=== PATIENT | male | born 1980 | race Caucasian/White ===

== ENCOUNTER 2022-09-08 10:22 | Inpatient (IN) | payer BC, OTHER ==
[2022-09-08] MEDS ORDERED: HYDROmorphone 1 MG/ML CARPUJECT IVP STA ×6 (10:50→16:38)
[2022-09-08] MEDS ORDERED: ONDANSETRON 4 MG/2 ML VIAL IVP STA (10:50)
[2022-09-08] MEDS ORDERED: KETOROLAC 30 MG/ML VIAL IVP STA (11:14)
[2022-09-08] MEDS ORDERED: iohexoL-300 100 ML VIAL ONE (11:19)
[2022-09-08 13:09] LABS: GLUCOSE, URINE (UA) 500 mg/dL (NEGATIVE); KETONES,URINE (UA) >=80 mg/dL (NEGATIVE); LEUKOCYTE ESTERASE, URINE NEGATIVE (NEGATIVE); NITRITE,URINE NEGATIVE (NEGATIVE); OCCULT BLOOD,URINE TRACE-INTA (NEGATIVE); PROTEIN,URINE 30 mg/dL (NEGATIVE); UROBILINOGEN,URINE 1 (NORMAL) E.U./dL (NORMAL)
[2022-09-08 13:24] LABS: CLARITY,URINE CLEAR (CLEAR)
[2022-09-08 13:25] LABS: BILIRUBIN,URINE NEGATIVE (NEGATIVE); ICTOTEST,URINE NEGATIVE
[2022-09-08 13:26] LABS: BACTERIA,URINE None Seen /HPF (None Seen); RBC,URINE 0-5 /HPF (0-5); SQUAMOUS EPITHELIAL CELL,UR NONE SEEN (<= Few); WBC,URINE 0-3 /HPF (0-3)
[2022-09-08] MEDS ORDERED: SODIUM CHLORIDE 0.9% 1,000 ML IV STA (14:13)
--- NOTE | 2022-09-08 14:13 | ED Physician Documentation ---
PD HPI ABD PAIN - Stated complaint Stated Complaint: ABD PX - Chief complaint Chief Complaint: Abd Pain - History obtained from History obtained from: Patient - History of Present Illness Timing - onset: Yesterday Timing - duration: Days (2) Timing - details: Gradual onset, Still present Pain level max: >10 Pain level now: >10 Quality: Cramping, Sharp, Pain Location: Suprapubic Radiation: No: Chest, , Lower back, Left flank, Left shoulder, Right flank, Right shoulder, Upper back Improved by: Laying still Worsened by: Moving, Breathing, Position, Palpation Associated symptoms: No: Fever, Nausea, Vomiting, Hematemesis, Diarrhea, Constipation, Melena, Hematochezia, Dysuria, Hematuria, Chest pain, Dizzy, Near syncope / syncope, Loss of appetite, Weight loss, Testicular pain Similar symptoms before: Has not had sx before Recently seen: Not recently seen - Additional information Additional information: Previously well 41 y/o Prudencio Centeno developed some abdominal pain yesterday and this was not accompanied by vomiting diarrhea constipation or loss of appetite. He indicates that yesterday he was able to eat. His pain worsened this morning significantly and he sought his way to the emergency department. He has pain worse with any movement and even with deep breathing. He has severe pain. He had fever yesterday does not have fever today. He does not have other symptoms. Review of Systems Constitutional: reports: Fever Eyes: denies: Decreased vision Ears: denies: Ear pain Nose: denies: Rhinorrhea / runny nose, Congestion Throat: denies: Sore throat Cardiac: denies: Chest pain / pressure, Palpitations Respiratory: denies: Dyspnea, Cough GI: reports: Abdominal Pain. denies: Nausea, Vomiting, Constipation, Diarrhea : denies: Dysuria, Frequency, Incontinent Skin: denies: Rash Musculoskeletal: denies: Neck pain, Back pain, Extremity pain PD PAST MEDICAL HISTORY - Present Medications Home Medications: Ambulatory Orders Medication Instructions Recorded Confirmed No Known Home Medications 09/08/22 09/08/22 - Allergies Allergies/Adverse Reactions: Allergies Allergy/AdvReac Type Severity Reaction Status Date / Time No Known Drug Allergies Allergy Verified 09/08/22 10:27 PD ED PE NORMAL - Vitals Vital signs reviewed: Yes - General General: Alert and oriented X 3, Well developed/nourished, Other (41 y/o male moaning in pain worsening with slight movement ) - HEENT HEENT: Atraumatic, PERRL, EOMI - Neck Neck: Supple, no meningeal sign, No bony TTP - Cardiac Cardiac: RRR, No murmur - Respiratory Respiratory: No respiratory distress, Clear bilaterally - Abdomen Abdomen: Other (lower abdomen is firm and tender. The upper abdomen is soft. There is not a full bladder on POCUS. ) - Back Back: No CVA TTP, No spinal TTP - Derm Derm: Normal color, Warm and dry, No rash - Extremities Extremities: No deformity, No edema - Neuro Neuro: Alert and oriented X 3, dog bather 2-12 intact, No motor deficit, No sensory deficit, Normal speech Eye Opening: Spontaneous Motor: Obeys Commands Verbal: Oriented GCS Score: 15 - Psych Psych: Other (mood is painful affect is painful) Results - Vitals Vitals: Vital Signs - 24 hr 09/08/22 09/08/22 09/08/22 10:28 12:12 12:30 Temperature 37.2 C Heart Rate 120 H 63 64 Respiratory 18 17 46 H Rate Blood Pressure 149/89 H 135/64 H 144/78 H O2 Saturation 99 100 100 09/08/22 09/08/22 09/08/22 13:00 13:30 13:48 Temperature Heart Rate 112 H 114 H 110 H Respiratory 17 17 18 Rate Blood Pressure 144/85 H 146/90 H 146/90 H O2 Saturation 99 98 99 09/08/22 09/08/22 09/08/22 14:07 14:30 15:00 Temperature Heart Rate 112 H 114 H 101 H Respiratory 18 17 16 Rate Blood Pressure 147/90 H 166/98 H 145/68 H O2 Saturation 97 100 100 09/08/22 09/08/22 09/08/22 15:59 16:06 16:56 Temperature Heart Rate 125 H 123 H 129 H Respiratory 20 21 20 Rate Blood Pressure 153/105 H 162/103 H 140/93 H O2 Saturation 96 99 97 Oxygen O2 Source Room air - Labs Labs: Laboratory Tests 09/08/22 09/08/22 09/08/22 12:50 14:22 14:22 WBC 7.1 RBC 4.66 L Hgb 13.9 L Hct 41.5 L MCV 89.1 MCH 29.8 MCHC 33.5 RDW 12.4 Plt Count 278 MPV 9.9 Neut # (Auto) Not Reportable Lymph # (Auto) Not Reportable [place] # (Auto) Not Reportable Eos # (Auto) Not Reportable Baso # (Auto) Not Reportable Absolute Nucleated RBC Not Reportable Total Counted 100 Band Neuts % (Manual) 25 H Abnorm Lymph % (Manual) 0 Nucleated RBC % Not Reportable Neutrophils # (Manual) 6.4 Lymphocytes # (Manual) 0.4 L Monocytes # (Manual) 0.3 Eosinophils # (Manual) 0.0 Basophils # (Manual) 0.0 Differential Comment MANUAL DIFFERENTIAL Platelet Estimate NORMAL (130-450,000) Platelet Morphology NORMAL APPEARANCE RBC Morph Micro Appear NORMAL APPEARANCE Sodium 132 L Potassium 3.8 Chloride 96 L Carbon Dioxide 25 Anion Gap 11.0 BUN 19 Creatinine 0.8 Estimated GFR (MDRD) 107 Glucose 169 H Lactic Acid Calcium 9.1 Total Bilirubin 1.5 H AST 30 ALT 49 Alkaline Phosphatase 82 Troponin I High Sens Total Protein 7.4 Albumin 3.7 Globulin 3.7 Albumin/Globulin Ratio 1.0 Lipase 24 Urine Color YELLOW Urine Clarity CLEAR Urine pH 6.0 Ur Specific [place] >=1.030 H Urine Protein 30 H Urine Glucose (UA) 500 H Urine Ketones >=80 H Urine Occult Blood TRACE-INTA Urine Nitrite NEGATIVE Urine Bilirubin NEGATIVE Urine Urobilinogen 1 (NORMAL) Ur Leukocyte Esterase NEGATIVE Urine RBC 0-5 Urine WBC 0-3 Ur Squamous Epith Cells NONE SEEN Urine Bacteria None Seen Ur Microscopic Review INDICATED Urine Culture Comments NOT INDICATED 09/08/22 09/08/22 14:35 16:22 WBC RBC Hgb Hct MCV MCH MCHC RDW Plt Count MPV Neut # (Auto) Lymph # (Auto) [place] # (Auto) Eos # (Auto) Baso # (Auto) Absolute Nucleated RBC Total Counted Band Neuts % (Manual) Abnorm Lymph % (Manual) Nucleated RBC % Neutrophils # (Manual) Lymphocytes # (Manual) Monocytes # (Manual) Eosinophils # (Manual) Basophils # (Manual) Differential Comment Platelet Estimate Platelet Morphology RBC Morph Micro Appear Sodium Potassium Chloride Carbon Dioxide Anion Gap BUN Creatinine Estimated GFR (MDRD) Glucose Lactic Acid 2.2 Calcium Total Bilirubin AST ALT Alkaline Phosphatase Troponin I High Sens 5.0 Total Protein Albumin Globulin Albumin/Globulin Ratio Lipase Urine Color Urine Clarity Urine pH Ur Specific [place] Urine Protein Urine Glucose (UA) Urine Ketones Urine Occult Blood Urine Nitrite Urine Bilirubin Urine Urobilinogen Ur Leukocyte Esterase Urine RBC Urine WBC Ur Squamous Epith Cells Urine Bacteria Ur Microscopic Review Urine Culture Comments Procedures - Bedside sono Bedside sono by EMP: With use of POCUS both left and right kidneys are examined they are sonographically nontender and without evidence of hydronephrosis. The suprapubic area is examined without evidence of a full bladder. The area is tender PD MEDICAL DECISION MAKING - ED course Complexity details: reviewed results, re-evaluated patient, considered differential, d/w patient ED course: Previously well 41-year-old male presents to the emergency department with severe pain in the suprapubic area and his pain progresses while he is here in the emergency department and he develops a rigid abdomen. We attempted IV access on initial presentation and were able to provide some pain medication to the patient through a foot vein. After more than 7 tries by our nurses we consulted our anesthesiologist Jamila Mccoy who was kind enough to come in and place an IV. We were able to obtain blood. On initial presentation the patient acted like he might have a full bladder any slight movement was was irritating in any suprapubic palpation was irritating. This did not show up on POCUS. The patient had severe pain and was writhing and had tenderness. He appears to have a surgical abdomen. Over the period of the emergency department visit we had trouble establishing IV access and the CT scanning was delayed. Over this period of time the patient developed increasing pain required multiple doses of pain medication intravenously and his abdomen became more rigid. The patient has returned from CAT scan he has evidence of perforated diverticula on his CT scan. Free air and stool perforated. Our surgeon Dr. Vides promptly presented to the ED and made arrangements to take the patient to the operating room. He was administered IV rocephin and flagyl prior to surgery. - Critical Care Time(min): 40 Comments: urgently called into room on initial evaluation for severe pain. Patient required frequent re-evaluation and multiple doses of narcotic analgesic. POCUS required for initiall evaluation for retroperitoneal ultrasound and bladder ultrasound. Required more than 5mg of dilaudid during ED stay. Required consultation of anesthesia for line placement. Time Includes: Direct patient care, Review records, Reassess patient, Document care, Coordinate care Data interpretation: Labs Departure - Departure Disposition: [facility] DC/Xfer Clinical Impression: Perforated abdominal viscus Discharge Date/Time: 09/08/22 17:29
[2022-09-08 14:45] LABS: BASOPHILS % (AUTO) 0.3 %; EOSINOPHILS % (AUTO) 44.1 %; HCT - HEMATOCRIT 41.5 % (42.0-52.0); HGB - HEMOGLOBIN 13.9 g/dL (14.0-18.0); LYMPHOCYTES % (AUTO) 5.7 %; MEAN CORPUSCULAR HEMOGLOBIN 29.8 pg (27.0-31.0); MEAN CORPUSCULAR HGB CONC 33.5 g/dL (32.0-36.0); MEAN CORPUSCULAR VOLUME 89.1 fL (80.0-94.0); MEAN PLATELET VOLUME 9.9 fL (7.4-11.4); MONOCYTES % (AUTO) 9.5 %; NEUTROPHILS % (AUTO) 39.6 %; PLT - PLATELET COUNT 278 10^3/uL (130-450); RED BLOOD COUNT 4.66 10^6/uL (4.70-6.10); RED CELL DISTRIBUTION WIDTH 12.4 % (12.0-15.0); WHITE BLOOD COUNT 7.1 x10^3/uL (4.8-10.8)
[2022-09-08 14:49] LABS: ABNORMAL LYMPHS % (MANUAL) 0 %
[2022-09-08 14:56] LABS: ALBUMIN 3.7 g/dL (3.2-5.5); BILIRUBIN,TOTAL 1.5 mg/dL (0.2-1.0); CALCIUM 9.1 mg/dL (8.5-10.3); CREATININE 0.8 mg/dL (0.6-1.2); POTASSIUM 3.8 mmol/L (3.5-5.0); TOTAL PROTEIN 7.4 g/dL (6.7-8.2)
[2022-09-08 15:28] LABS: BAND NEUTROPHILS % (MANUAL) 25 %; LYMPHOCYTES # (MANUAL) 0.4 10^3/uL (1.5-3.5); LYMPHOCYTES % (MANUAL) 6 %; MONOCYTES # (MANUAL) 0.3 10^3/uL (0.0-1.0); NEUTROPHILS # (MANUAL) 6.4 10^3/uL (1.5-6.6)
[2022-09-08 15:31] LABS: DIFFERENTIAL COMMENT MANUAL DIFFERENTIAL; PLATELET ESTIMATE, MANUAL NORMAL (130-450,000) (NORMAL); PLATELET MORPHOLOGY NORMAL APPEARANCE (NORMAL); RBC MORPHOLOGY (MULTIPLE) NORMAL APPEARANCE (NORMAL)
--- NOTE | 2022-09-08 15:38 | CT Report ---
PROCEDURE: ABDOMEN/PELVIS W INDICATIONS: severe suprapubic pain CONTRAST: 100ml omni 300 TECHNIQUE: After the administration of IV contrast, 5 mm thick sections acquired from the diaphragms to the symp hysis. 5 mm thick coronal and sagittal reformats were acquired. For radiation dose reduction, the f ollowing was used: automated exposure control, adjustment of mA and/or kV according to patient size. COMPARISON: None. FINDINGS: Image quality: Excellent. ABDOMEN: Lung bases: Mild dependent bibasilar airspace opacity is present. Heart size is normal. Solid organs: Liver and spleen are normal in size and enhancement. Gallbladder is within normal modi its Biliary system is non dilated. Pancreas enhances normally. No adrenal nodules. Kidneys demons trate normal size and enhancement, without hydronephrosis. Peritoneum and bowel: Stomach and small bowel are within normal limits. Appendix is normal. Colon is nondistended. There is diverticulosis of the descending and sigmoid colon. Moderate thickening of the proximal and mid sigmoid colon which demonstrates mild surrounding fat stranding. There is moderate ill-defined loculated pneumoperitoneum and extracolonic stool surrounding this thickened segment of c olon, spanning roughly 60 mm transverse by 7 mm anteroposterior by 100 mm craniocaudal. Small amount of ascites predominantly within the right hemiabdomen. There is moderate retroperitoneal free air. Sm all amount of scattered likely free air within the peritoneal cavity. Nodes and vessels: No retroperitoneal or mesenteric adenopathy by size criteria. Aorta and inferior vena cava are normal in size. Miscellaneous: No ventral hernias. PELVIS: Genitourinary: Bladder wall thickness is normal. Miscellaneous: No inguinal hernias or adenopathy. Bones: No suspicious bony lesions. No vertebral body compression fractures. IMPRESSION: 1. Perforated colonic diverticulitis with resultant extracolonic pneumoperitoneum and stool as descri bed above. Retroperitoneal gas as well as a small amount of loculated free pneumoperitoneum is presen t. There is a small amount of ascites. 2. Bibasilar atelectasis versus pneumonia. 3. Findings discussed with the patient's clinician on 07/09/2022 at 1535 hours EST. Reviewed by: Panchito Karimi MD on 09/08/2022 2:36 PM AKST Approved by: Panchito Karimi MD on 09/08/2022 2:36 PM [place] Station ID: [id number]
[2022-09-08] MEDS ORDERED: metroNIDAZOLE 500 MG/100 ML 500 MG/100 ML BAG IV ONE (15:42)
[2022-09-08] MEDS ORDERED: cefTRIAXone 1 GM VIAL IVP STA (15:42)
--- NOTE | 2022-09-08 16:19 | HISTORY & PHYSICAL EXAMINATION ---
Chief Complaint - Chief Complaint Chief Complaint: Severe abdominal pain History of Present Illness - Admitted From Admitted From:: ED - History Obtained From Records Reviewed: Yes History obtained from: Patient Exam Limitations: None - History of Present Illness HPI Comment/Other: 41 year old male with sudden onset of bilateral lower abdominal pain this morning described as sharp, non-radiating, constant, and worsened by movement. Anorexic today. Denies fevers or chills. Came to ED earlier today and while here the pain worsened and a CT was performed that identified perforated sigmoid diverticulitis with extracolonic stool and air. The patient had an episode of mild abdominal pain yesterday but was able to eat and was otherwise normal. He denies prior episodes of abdominal pain prior to yesterday. He has only had liquids today. He had a normal BM yesterday but non today. 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 - Substance History Use: Uses substance without health or social issues: Tobacco, Cannabis Tobacco Details: Cigarettes Meds/Allgy - Home Medications Home Medications: Ambulatory Orders Medication Instructions Recorded Confirmed No Known Home Medications 09/08/22 09/08/22 - Allergies Allergies/Adverse Reactions: Allergies Allergy/AdvReac Type Severity Reaction Status Date / Time No Known Drug Allergies Allergy Verified 09/08/22 10:27 Review of Systems - Gastrointestinal Gastrointestinal: reports: Abdominal pain, Abdominal distention Exam - Vital Signs Reviewed Vital Signs: Yes Vital Signs: Vital Signs x48h Temp Pulse Resp BP Pulse Ox 09/08/22 16:06 123 H 21 162/103 H 99 09/08/22 15:59 125 H 20 153/105 H 96 09/08/22 15:00 101 H 16 145/68 H 100 09/08/22 14:30 114 H 17 166/98 H 100 09/08/22 14:07 112 H 18 147/90 H 97 09/08/22 13:48 110 H 18 146/90 H 99 09/08/22 13:30 114 H 17 146/90 H 98 09/08/22 13:00 112 H 17 144/85 H 99 09/08/22 12:30 64 46 H 144/78 H 100 09/08/22 12:12 63 17 135/64 H 100 09/08/22 10:28 98.9 F 120 H 18 149/89 H 99 - Physical Exam General Appearance: positive: Severe distress, Anxious Eyes Bilateral: positive: Normal inspection, PERRL, EOMI ENT: positive: ENT inspection nml, Pharynx nml Neck: positive: Nml inspection, Thyroid nml, No JVD Respiratory: positive: Chest non-tender, No respiratory distress, Breath sounds nml Cardiovascular: positive: No murmur, Tachycardia Peripheral Pulses: positive: 2+ Abdomen: positive: Guarding, Rebound, Other (Distension; Absentt bowel sounds; Tender hypogastric region with peritoneal signs) Back: positive: Nml inspection Skin: positive: Dry Extremities: positive: Non-tender, Full ROM Neurologic/Psychiatric: positive: Oriented x3 Sepsis Event Note (H) - Evaluation Current Stage of Sepsis: Sepsis Possible source of Sepsis: positive: GI tract/intra-abdominal - Sepsis Criteria Sepsis Criteria: Recorded Heart Rate greater than 90 bpm, Recorded Respiratory Rate greater than 20, WBC count greater than 12,000 or less than 4000 Conclusion/Plan - Problem List (1) Perforated abdominal viscus Conclusion/Plan: Images: CT -> extracolonic stool adjacent to an inflamed sigmoid colon with free fluid and free air in the abdomen Assessment: 1) Perforated sigmoid diverticulitis with fecal peritonitis 2) SIRS and early sepsis due to #1 Plan: 1) IV fluids, Ceftriaxone, Flagyl in ED; Heparin SQ/SCD's in OR; Hernandez in OR 2) Urgent transfer to OR for exploratory laparotomy, sigmoid colectomy, colostomy with abdominal washout. An ICU bed is on-hold for this patient's post-op care. The OR team and anesthesia provider are preparing the room for this emergency procedure Consent: Mr. Centeno has been counseled for the procedure, it's indications, risks, benefits and expected outcome as well as alternative therapies. We specifically discussed risks associated with anesthesia, bleeding, infection, injury to surrounding structures which may require additional surgery, and the possibility of leaving the abdomen open with delayed primary closure if damage control protocol is required. We also discussed the possible need for a blood transfusion with its risks and benefits. In my medical opinion, considering (1) the potential harm to the patient's health and well-being, including the risks associated with the patient under going a procedure and delaying the procedure during the COVID-19 pandemic, and (2) the health care resources available to the patient in the hospital and the broader community during and after the procedure, I recommend that the patient proceed with the procedure. Mr Centeno understands, agrees, and consents to the proposed operative strategy and requests that we proceed with the procedure as outlined in our discussion. Denzel Tse MD General Surgery Service - Lab Results Fish Bones: 09/08/22 14:22 09/08/22 14:22
[2022-09-08] MEDS ORDERED: fentaNYL 100 MCG/2 ML VIAL ONE (16:38)
[2022-09-08] MEDS ORDERED: PROPOFOL 200 MG/20 ML VIAL IVP ONE (16:39)
[2022-09-08] MEDS ORDERED: ROCURONIUM 50 MG/5 ML VIAL ONE (16:39)
[2022-09-08] MEDS ORDERED: MORPHINE 2 MG/ML CARPUJECT IVP PRN (16:45)
[2022-09-08] MEDS ORDERED: HYDROmorphone 0.5 MG/0.5 ML SYRINGE IVP PRN (16:45)
[2022-09-08] MEDS ORDERED: ONDANSETRON 4 MG/2 ML VIAL IVP PRN ×2 (16:45→19:29)
[2022-09-08] MEDS ORDERED: ATROPINE ABBOJECT 1 MG/10 ML SYRINGE IVP PRN (16:45)
[2022-09-08] MEDS ORDERED: fentaNYL 100 MCG/2 ML VIAL IVP PRN (16:45)
[2022-09-08] MEDS ORDERED: NALOXONE 0.4 MG/ML VIAL IVP PRN (16:45)
[2022-09-08] MEDS ORDERED: ePHEDrine 50 MG/ML VIAL IVP PRN (16:45)
[2022-09-08] MEDS ORDERED: METOCLOPRAMIDE 10 MG/2 ML VIAL IVP PRN (16:45)
--- NOTE | 2022-09-08 16:50 | ANESTHESIA ---
Pre-Anesthesia VS, & Labs - Diagnosis abdominal pain, perforated diverticulitis - Procedure exploratory laparotomy, colectomy, colostomy Vital Signs: Temp Pulse Resp BP Pulse Ox O2 Flow Rate 37.2 C 123 H 21 162/103 H 99 09/08/22 10:28 09/08/22 16:06 09/08/22 16:06 09/08/22 16:06 09/08/22 16:06 Height: 6 ft 1 in Weight (kg): 83.915 kg Body Mass Index: 24.4 BMI Classification: Normal - NPO >8 hours - Lab Results Current Lab Results: Laboratory Tests 09/08/22 14:35: Lactic Acid 2.2 09/08/22 14:22: Sodium 132 L, Potassium 3.8, Chloride 96 L, Carbon Dioxide 25, Anion Gap 11.0, BUN 19, Creatinine 0.8, Estimated GFR (MDRD) 107, Glucose 169 H, Calcium 9.1, Total Bilirubin 1.5 H, AST 30, ALT 49, Alkaline Phosphatase 82, Total Protein 7.4, Albumin 3.7, Globulin 3.7, Albumin/Globulin Ratio 1.0, Lipase 24 09/08/22 14:22: WBC 7.1, RBC 4.66 L, Hgb 13.9 L, Hct 41.5 L, MCV 89.1, MCH 29.8, MCHC 33.5, RDW 12.4, Plt Count 278, MPV 9.9, Neut # (Auto) Not Reportable, Lymph # (Auto) Not Reportable, [place] # (Auto) Not Reportable, Eos # (Auto) Not Reportable, Baso # (Auto) Not Reportable, Absolute Nucleated RBC Not Reportable, Total Counted 100, Band Neuts % (Manual) 25 H, Abnorm Lymph % (Manual) 0, Nucleated RBC % Not Reportable, Neutrophils # (Manual) 6.4, Lymphocytes # (Manual) 0.4 L, Monocytes # (Manual) 0.3, Eosinophils # (Manual) 0.0, Basophils # (Manual) 0.0, Differential Comment MANUAL DIFFERENTIAL, Platelet Estimate NORMAL (130-450,000), Platelet Morphology NORMAL APPEARANCE, RBC Morph Micro Appear NORMAL APPEARANCE Fish Bones: 09/08/22 14:22 09/08/22 14:22 Home Medications and Allergies Home Medications: Ambulatory Orders No Known Home Medications 09/08/22 Active Medications Atropine Sulfate (Atropine Abboject 1 Mg/10 Ml Syringe) 0.5 mg IVP Q5M PRN PRN Reason: Bradycardia Stop: 09/09/22 16:46 Ephedrine Sulfate (Ephedrine 50 Mg/Ml Vial) 10 mg IVP Q5M PRN PRN Reason: HYPOTENSION Stop: 09/09/22 16:46 Fentanyl (Fentanyl 100 Mcg/2 Ml Vial) 25 - 50 mcg IVP Q5M PRN PRN Reason: BREAKTHROUGH PAIN (2nd Choice) Stop: 09/09/22 16:46 Heparin Sodium (Porcine) (Heparin 5,000 Unit/Ml Vial) 5,000 unit SUBQ BID CHARLIE Hydromorphone HCl (Hydromorphone 0.5 Mg/0.5 Ml Syringe) 0.2 - 0.6 mg IVP Q5M PRN PRN Reason: PAIN (First Choice) Stop: 09/09/22 16:46 Lactated Ringer's (Lr) 1,000 mls @ 200 mls/hr IV .Q5H CHARLIE Lactated Ringer's (Lr) 1,000 mls @ 100 mls/hr IV .Q10H CHARLIE Stop: 09/09/22 02:59 Metoclopramide HCl (Metoclopramide 10 Mg/2 Ml Vial) 10 mg IVP Q6HR PRN PRN Reason: N/V not relieved by Zofran Morphine Sulfate (Morphine 2 Mg/Ml Carpuject) 2 - 4 mg IVP Q5M PRN PRN Reason: PAIN (3rd Choice) Stop: 09/09/22 16:46 Naloxone HCl (Naloxone 0.4 Mg/Ml Vial) 0.1 mg IVP Q2M PRN PRN Reason: RESP RATE <8 Stop: 09/09/22 16:46 Ondansetron HCl (Ondansetron 4 Mg/2 Ml Vial) 4 mg IVP ONCE PRN PRN Reason: N/V (First Choice) Stop: 09/09/22 16:46 Sodium Chloride (Sodium Chloride Flush 0.9% 10 Ml Syringe) 10 ml IVP 0100,0900,1700 CHARLIE Sodium Chloride (Sodium Chloride Flush 0.9% 10 Ml Syringe) 10 ml IVP PRN PRN PRN Reason: NEEDED PER PROVIDER ORDERS No Known Home Medications 09/08/22 Allergies/Adverse Reactions: Allergies Allergy/AdvReac Type Severity Reaction Status Date / Time No Known Drug Allergies Allergy Verified 09/08/22 10:27 Anes History & Medical History - Anesthetic History Anesthesia Complications: reports: No previous complications - Medical History Cardiovascular: reports: None Pulmonary: reports: None Smoking Status: Current every day smoker History of Cancer?: No - Surgical History Eyes Ears Nose Throat (EENT): reports: Tonsil/Adenoidectomy Exam General: Alert, Oriented x3, Severe distress (pain) Dental: WNL, Poor dentition (missing front) Mouth Opening: Greater than 4 Fingerbreadths Mallampati classification: II Thyromental Distance: greater than 6 cm Respiratory: Lungs clear Cardiovascular: Regular rate Plan Anesthesia Type: General, Transverse Abdominis Plane (TAP) Block Consent for Procedure(s) Verified and Reviewed: Yes Code Status: Attempt Resuscitation ASA classification: 2-Mild systemic disease Is this case an emergency?: Yes
[2022-09-08] MEDS ORDERED: BUPIVACAINE 0.5% PF 30 ML VIAL ONE (16:53)
[2022-09-08] MEDS ORDERED: LIDOCAINE MPF 2%-EPI 1:200000 20 ML VIAL ONE (16:53)
[2022-09-08] MEDS ORDERED: LACTATED RINGERS 1,000 ML IV SCH ×2 (17:00)
[2022-09-08] MEDS ORDERED: MIDAZOLAM 2 MG/2 ML VIAL ONE (17:03)
[2022-09-08] MEDS ORDERED: iohexoL-300 100 ML VIAL IVP ONE (17:14)
[2022-09-08] MEDS ORDERED: KETAMINE 500 MG/10 ML VIAL ONE (17:23)
[2022-09-08] MEDS ORDERED: ACETAMINOPHEN 1,000 MG/100 ML 1,000 MG/100 ML BAG IV ONE (17:48)
[2022-09-08] MEDS ORDERED: DEXAMETHASONE 4 MG/ML VIAL ONE (18:18)
[2022-09-08] MEDS ORDERED: ONDANSETRON 4 MG/2 ML VIAL ONE (18:18)
[2022-09-08] MEDS ORDERED: SUGAMMADEX 200 MG/2 ML VIAL IVP ONE (18:27)
[2022-09-08] MEDS ORDERED: ROPIVACAINE 0.2% PF 10 ML VIAL ONE (18:33)
[2022-09-08] MEDS ORDERED: BUPIVACAINE 0.25% PF 10 ML VIAL ONE (18:34)
[2022-09-08] MEDS ORDERED: HYDROmorphone PCA 20MG/100ML IV PRN (19:29)
[2022-09-08] MEDS ORDERED: LACTATED RINGERS 1,000 ML IV ONE (19:35)
--- NOTE | 2022-09-08 20:01 | OPERATIVE REPORT ---
Operative Report - Other Other Information/Narrative: PROC DATE: 09/08/2022 PREOP DIAG: Fecal peritonitis due to perforated sigmoid diverticulitis POSTOP DIAG: Same SURGEON: Mark Tse MD, FACS ASSISTANTS: final operations technician OPERATION: Sigmoid colectomy; End Descending Colostomy ANESTHESIA: General endotracheal. ESTIMATED BLOOD LOSS: 40 mL. DRAINS: Hernandez urinary catheter; Donal drain in pelvis DESCRIPTION OF OPERATIVE FINDINGS: Feculent peritonitis; 3 cm full thickness defect in sigmoid colon with extra-colonic stool in pelvis PROCEDURE: After consent for the procedure was obtained, the patient was brought to the operating room, where a surgical time out was performed indicating the patient and the procedure to be performed. In the supine position general endotracheal anesthesia was administered. A Hernandez catheter was placed and venous compression devices were placed on the lower extremities. The abdomen was clipped of hair, prepped with alcohol-free chloroprep and draped in a sterile fashion. An NGT was placed. A midline incision was used to gain exposure to the peritoneal cavity, which was explored and found to contain the above noted findings. Cultures of the peritoneal purulent ascites were taken. A sigmoid colectomy with end colostomy was planned. This was first performed by removing the extracolonic stool from the pelvis and controlling leakage of stool from the sigmoid colon perforation. The sigmoid colon was transected proximal and distal to the perforation in healthy colon using two separate loads of a 75 mm JENNIFER stapling device using 3.5 mm aneudy. The mesentery to the sigmoid colon was then taken down near the wall of the colon with a LigaSure device and the specimen, approximately 10 cm of sigmoid colon, was removed from the field. The area of dissection was well away from the base of the mesentery and I chose not to open the retroperitoneum to search for the left ureter to avoid unnecessary contamination of this area. An end colostomy was then planned. The white line of Toldt was then incised proximally for several cm to obtain adequate length of colon for the colostomy. This allowed mobilization of the descending colon such that it would emerge without tension through a LLQ stoma site. A [place] of skin was removed from the LLQ at the planned stoma site. Dissection through subcutaneous tissue was performed with electrocautery until the rectus fascia was identified. A cruciate incision was made in the rectus fascia and the rectus muscle fibers were split. The peritoneum was incised and the stomal opening was enlarged to two finger-breadths. The stapled end of the descending colon was brought through the stomal opening in the abdominal wall and secured in place with Anderson clamps. Attention was re-directed to the pelvis. Bleeding from the previous dissection site was minimal. The rectal stump staple line was intact. The entire abdominal cavity was then irrigated with 5 liters of warm sterile saline to remove the particulate fecal material and the purulent ascites. The small bowel was followed from the Ligament of Treitz to the ileocecal junction and there was no evidence of intra-loop abscesses. The right colon, transverse colon and descending colon were normal by palpation and contained a moderate amount of stool. A 19 mm Donal drain was placed into the pelvis, brought out through a separate stab incision in the RLQ and secured to the skin with a nylon suture. A search for made for sponges, packs, instruments and needles. None were found. The sponge, pack, instrument and needle counts were relayed to me as being correct. The omentum was used to cover the small bowel. The abdominal wall was then closed with a running double-stranded 0 PDS for the linea alba. The subcutaneous tissue was irrigated and packed with saline dampened gauze covered with an ABD dressing. The ostomy was matured using interrupted 4-0 Vicryl sutures. An ostomy appliance was placed on the abdominal wall. A LIZZIE block was placed by the anesthesia team. The patient was awakened from general anesthesia and was brought to the ICU with stable vital signs.
[2022-09-08] MEDS ORDERED: LIDOCAINE-PF 2% 10 ML AMP SUBQ ONE (20:15)
[2022-09-08] MEDS: HEPARIN 5,000 UNIT/ML VIAL SUBQ SCH (20:35)
[2022-09-08] MEDS: KETOROLAC 30 MG/ML VIAL IVP SCH (20:35)
[2022-09-08 20:40] LABS: BASOPHILS % (AUTO) 0.4 %; EOSINOPHILS % (AUTO) 6.5 %; HCT - HEMATOCRIT 41.6 % (42.0-52.0); HGB - HEMOGLOBIN 13.8 g/dL (14.0-18.0); LYMPHOCYTES % (AUTO) 8.4 %; MEAN CORPUSCULAR HEMOGLOBIN 29.7 pg (27.0-31.0); MEAN CORPUSCULAR HGB CONC 33.2 g/dL (32.0-36.0); MEAN CORPUSCULAR VOLUME 89.5 fL (80.0-94.0); MEAN PLATELET VOLUME 9.7 fL (7.4-11.4); NEUTROPHILS % (AUTO) 76.4 %; PLT - PLATELET COUNT 289 10^3/uL (130-450); RED BLOOD COUNT 4.65 10^6/uL (4.70-6.10); RED CELL DISTRIBUTION WIDTH 12.6 % (12.0-15.0); WHITE BLOOD COUNT 7.1 x10^3/uL (4.8-10.8)
[2022-09-08 20:47] LABS: CALCIUM 7.9 mg/dL (8.5-10.3); CREATININE 0.8 mg/dL (0.6-1.2); POTASSIUM 4.9 mmol/L (3.5-5.0)
[2022-09-08 20:52] LABS: ABNORMAL LYMPHS % (MANUAL) 0 %
[2022-09-08 21:11] LABS: BAND NEUTROPHILS % (MANUAL) 53 %; LYMPHOCYTES # (MANUAL) 0.9 10^3/uL (1.5-3.5); LYMPHOCYTES % (MANUAL) 12 %; MONOCYTES # (MANUAL) 0.6 10^3/uL (0.0-1.0); NEUTROPHILS # (MANUAL) 5.5 10^3/uL (1.5-6.6); REACTIVE LYMPHS % (MANUAL) 1 %
[2022-09-08 21:12] LABS: DIFFERENTIAL COMMENT MANUAL DIFFERENTIAL; PLATELET ESTIMATE, MANUAL NORMAL (130-450,000) (NORMAL); PLATELET MORPHOLOGY NORMAL APPEARANCE (NORMAL); RBC MORPHOLOGY (MULTIPLE) NORMAL APPEARANCE (NORMAL)
[2022-09-08] MEDS ORDERED: PHENOL THROAT SPRAY 177 ML MM PRN (21:18)
[2022-09-08] MEDS: metroNIDAZOLE 500 MG/100 ML 500 MG/100 ML BAG IV SCH (22:30)
[2022-09-08] MEDS: LACTATED RINGERS 1,000 ML IV SCH (22:30)
[2022-09-08] MEDS: SODIUM CHLORIDE FLUSH 0.9% 10 ML SYRINGE IVP SCH ×2 (22:34)
[2022-09-08] MEDS: BENZOCAINE/MENTHOL LOZENGE MM PRN (22:38)
[2022-09-08] MEDS: HYDROmorphone PCA 20MG/100ML IV PRN (23:38)
[2022-09-09] MEDS: KETOROLAC 30 MG/ML VIAL IVP SCH ×4 (01:31→20:09)
[2022-09-09] MEDS: HEPARIN 5,000 UNIT/ML VIAL SUBQ SCH ×3 (01:31→20:24)
[2022-09-09] MEDS: SODIUM CHLORIDE FLUSH 0.9% 10 ML SYRINGE IVP SCH ×7 (02:53→22:15)
[2022-09-09] MEDS: fentaNYL 100 MCG/2 ML VIAL IVP PRN ×4 (04:05→22:22)
[2022-09-09 05:25] LABS: BASOPHILS % (AUTO) 0.7 %; EOSINOPHILS % (AUTO) 0.6 %; HCT - HEMATOCRIT 37.2 % (42.0-52.0); HGB - HEMOGLOBIN 12.7 g/dL (14.0-18.0); LYMPHOCYTES % (AUTO) 5.9 %; MEAN CORPUSCULAR HEMOGLOBIN 30.2 pg (27.0-31.0); MEAN CORPUSCULAR HGB CONC 34.1 g/dL (32.0-36.0); MEAN CORPUSCULAR VOLUME 88.6 fL (80.0-94.0); MEAN PLATELET VOLUME 10.4 fL (7.4-11.4); MONOCYTES % (AUTO) 4.3 %; NEUTROPHILS % (AUTO) 88.1 %; PLT - PLATELET COUNT 272 10^3/uL (130-450); WHITE BLOOD COUNT 16.1 x10^3/uL (4.8-10.8)
[2022-09-09 05:31] LABS: CALCIUM, IONIZED 1.01 mmol/L (1.15-1.33); VBG PH 7.488 (7.31-7.41)
[2022-09-09 05:39] LABS: ABNORMAL LYMPHS % (MANUAL) 0 %; CREATININE 0.7 mg/dL (0.6-1.2); MAGNESIUM 1.5 mg/dL (1.7-2.8); PHOSPHORUS 3.6 mg/dL (2.5-4.6); POTASSIUM 4.1 mmol/L (3.5-5.0)
[2022-09-09 06:07] LABS: BAND NEUTROPHILS % (MANUAL) 47 %; DIFFERENTIAL COMMENT MANUAL DIFFERENTIAL; LYMPHOCYTES # (MANUAL) 2.4 10^3/uL (1.5-3.5); LYMPHOCYTES % (MANUAL) 15 %; METAMYELOCYTES % (MANUAL) 1 %; MONOCYTES # (MANUAL) 0.2 10^3/uL (0.0-1.0); MYELOCYTES % (MANUAL) 1 %; NEUTROPHILS # (MANUAL) 13.2 10^3/uL (1.5-6.6); PLATELET ESTIMATE, MANUAL NORMAL (130-450,000) (NORMAL); RBC MORPHOLOGY (MULTIPLE) NORMAL APPEARANCE (NORMAL)
[2022-09-09] MEDS: metroNIDAZOLE 500 MG/100 ML 500 MG/100 ML BAG IV SCH ×3 (06:35→22:10)
[2022-09-09] MEDS: PANTOPRAZOLE 40 MG VIAL IVP SCH (06:42)
--- NOTE | 2022-09-09 07:25 | PHARMACY PROGRESS NOTE ---
- Best Possible Medication History Admit Date and Time: 09/08/221928 Processed by: Nursing Medication History completed: Yes As the person ultimately responsible for medication therapy, providers are able to order a medication from an existing home medication list in [facility] via the "Reconcile Routine" prior to Confirmation of that medication by product support consultant. Such practice is discouraged except when the physician, in their clinical judgment, deems that a medical need exists for a medication without regard to previous use.
[2022-09-09] MEDS ORDERED: MAGNESIUM SULFATE 2 GRAM 2 GM/50 ML BAG IV ONE (07:28)
[2022-09-09] MEDS: oxyCODONE 5 MG TABLET PO PRN (08:01)
[2022-09-09] MEDS: BENZOCAINE/MENTHOL LOZENGE MM PRN (08:54)
[2022-09-09] MEDS ORDERED: cefTRIAXone 1 GM in SODIUM CHLORIDE 0.9% MINIBAG 100 ML IV SCH (09:00)
[2022-09-09] MEDS: HYDROmorphone PCA 20MG/100ML IV PRN ×2 (09:13→18:02)
[2022-09-09] MEDS: LACTATED RINGERS 1,000 ML IV SCH ×4 (09:21→22:35)
[2022-09-09] MEDS: PROCHLORPERAZINE 10 MG/2 ML VIAL IVP PRN (09:29)
[2022-09-09] MEDS: LORazepam 2 MG/ML VIAL IVP PRN (09:29)
--- NOTE | 2022-09-09 09:32 | XRAY Report ---
PROCEDURE: Chest for Line Placement INDICATIONS: Right IJ Placement TECHNIQUE: One view of the chest was acquired. COMPARISON: None. FINDINGS: Surgical changes and devices: Right internal jugular vein central venous catheter is present, tip of which is in the right atrium. NGT is looped within the gastric lumen. Lungs and pleura: No pleural effusions or pneumothorax. There is moderate right and mild left bibasi lar patchy airspace opacity. Mediastinum: Mediastinal contours appear normal. Heart size is normal. Bones and chest wall: No suspicious bony lesions. Overlying soft tissues appear unremarkable. IMPRESSION: 1. Tubes and catheters as above. 2. Bibasilar pneumonia. Follow-up PA and lateral chest x-rays or chest CT is recommended to ensure re solution, and to exclude underlying neoplasm. Reviewed by: Panchito Karimi MD on 09/09/2022 8:31 AM [facility] Approved by: Panchito Karimi MD on 09/09/2022 8:31 AM [facility] Station ID: [id number]
--- NOTE | 2022-09-09 09:40 | PROVIDER PROGRESS NOTE ---
Subjective - General Admit Date: 09/08/22 Procedure Date: 09/08/22 Post Op Days: 1 Procedure Performed: Exploratory laparotomy, sigmoid colectomy, colostomy - Review of Systems Wound/Incisions: positive: Other (Midline wound with clean and healthy fascia and subcutaneous tissue) Drain Type: Donal Drain Output Description: serosanguinous Approximate mls Output: 80 All Other Systems: positive: Other (Pain control an issue last night; Peripheral IV lost this morning; NGT bothersome to patient; Desires nicotine patch) Objective - Patient Data Reviewed Vital Signs: Yes Vital Signs: Vital Signs x48h Temp Pulse Pulse Resp BP Pulse Ox O2 Flow Rate 09/09/22 08:00 209.7 F H 109 H 18 143/94 H 09/09/22 07:00 109 H 27 H 116/70 95 2 09/09/22 06:30 20 09/09/22 06:05 115 H 22 146/94 H 96 2 09/09/22 05:37 19 97 2 09/09/22 05:00 106 H 16 138/102 H 96 09/09/22 04:17 18 09/09/22 04:00 97.9 F 106 H 16 142/94 H 99 09/09/22 03:20 115 H 16 134/92 H 100 09/09/22 03:00 16 09/09/22 02:00 113 H 17 142/98 H 99 Weight: Weight 09/07/22 09/08/22 09/09/22 23:59 23:59 23:59 Weight (kg) 80.5 kg 81 kg Intake & Output: Intake and Output Totals x24h 09/07/22 09/08/22 09/09/22 23:59 23:59 23:59 Intake Total 1202.5 1414.167 Output Total 240 688 Balance 962.5 726.167 - Lab Results Lab Results: 09/09/22 04:45 09/09/22 04:45 Other Lab Results: Lab Results x24hrs 09/09/22 09/09/22 09/09/22 Range/Units 04:45 04:45 04:45 WBC 16.1 H (4.8-10.8) x10^3/uL RBC 4.20 L (4.70-6.10) 10^6/uL Hgb 12.7 L (14.0-18.0) g/dL Hct 37.2 L (42.0-52.0) % MCV 88.6 (80.0-94.0) fL MCH 30.2 (27.0-31.0) pg MCHC 34.1 (32.0-36.0) g/dL RDW 13.0 (12.0-15.0) % Plt Count 272 (130-450) 10^3/uL MPV 10.4 (7.4-11.4) fL Neut # (Auto) Not Reportable Lymph # (Auto) Not Reportable [place] # (Auto) Not Reportable Eos # (Auto) Not Reportable Baso # (Auto) Not Reportable Absolute Nucleated RBC Not Reportable Total Counted 100 Band Neuts % (Manual) 47 H (0 - 10) % Reactive Lymphs % (Man) % Abnorm Lymph % (Manual) 0 % Metamyelocytes % 1 H ( - 0) % Myelocytes % 1 H ( - 0) % Nucleated RBC % Not Reportable Neutrophils # (Manual) 13.2 H (1.5-6.6) 10^3/uL Lymphocytes # (Manual) 2.4 (1.5-3.5) 10^3/uL Monocytes # (Manual) 0.2 (0.0-1.0) 10^3/uL Eosinophils # (Manual) 0.0 (0-0.7) 10^3/uL Basophils # (Manual) 0.0 (0-0.1) 10^3/uL Differential Comment MANUAL DIFFERENTIAL Platelet Estimate NORMAL (130-450,000) (NORMAL) Platelet Morphology (NORMAL) RBC Morph Micro Appear NORMAL APPEARANCE (NORMAL) VBG pH 7.488 H (7.31-7.41) Ionized Calcium 1.01 L (1.15-1.33) mmol/L Sodium 132 L (135-145) mmol/L Potassium 4.1 (3.5-5.0) mmol/L Chloride 98 L (101-111) mmol/L Carbon Dioxide 23 (21-32) mmol/L Anion Gap 11.0 (6-13) BUN 15 (6-20) mg/dL Creatinine 0.7 (0.6-1.2) mg/dL Estimated GFR (MDRD) 125 (>89) Glucose 144 H (70-100) mg/dL Lactic Acid (0.5-2.2) mmol/L Calcium 8.0 L (8.5-10.3) mg/dL Phosphorus 3.6 (2.5-4.6) mg/dL Magnesium 1.5 L (1.7-2.8) mg/dL Total Bilirubin (0.2-1.0) mg/dL AST (10-42) IU/L ALT (10-60) IU/L Alkaline Phosphatase (42-121) IU/L Troponin I High Sens (2.3-19.7) ng/L Total Protein (6.7-8.2) g/dL Albumin (3.2-5.5) g/dL Globulin (2.1-4.2) g/dL Albumin/Globulin Ratio (1.0-2.2) Lipase (22-51) U/L Urine Color Urine Clarity (CLEAR) Urine pH (5.0-7.5) PH Ur Specific [place] (1.002-1.030) Urine Protein (NEGATIVE) mg/dL Urine Glucose (UA) (NEGATIVE) mg/dL Urine Ketones (NEGATIVE) mg/dL Urine Occult Blood (NEGATIVE) Urine Nitrite (NEGATIVE) Urine Bilirubin (NEGATIVE) Urine Urobilinogen (NORMAL) E.U./dL Ur Leukocyte Esterase (NEGATIVE) Urine RBC (0-5) /HPF Urine WBC (0-3) /HPF Ur Squamous Epith Cells (<= Few) Urine Bacteria (None Seen) /HPF Ur Microscopic Review Urine Culture Comments Nasal Screen MRSA (PCR) (NEGATIVE) 09/08/22 09/08/22 09/08/22 Range/Units 20:00 20:00 19:40 WBC 7.1 (4.8-10.8) x10^3/uL RBC 4.65 L (4.70-6.10) 10^6/uL Hgb 13.8 L (14.0-18.0) g/dL Hct 41.6 L (42.0-52.0) % MCV 89.5 (80.0-94.0) fL MCH 29.7 (27.0-31.0) pg MCHC 33.2 (32.0-36.0) g/dL RDW 12.6 (12.0-15.0) % Plt Count 289 (130-450) 10^3/uL MPV 9.7 (7.4-11.4) fL Neut # (Auto) Not Reportable Lymph # (Auto) Not Reportable [place] # (Auto) Not Reportable Eos # (Auto) Not Reportable Baso # (Auto) Not Reportable Absolute Nucleated RBC Not Reportable Total Counted 100 Band Neuts % (Manual) 53 H (0 - 10) % Reactive Lymphs % (Man) 1 % Abnorm Lymph % (Manual) 0 % Metamyelocytes % ( - 0) % Myelocytes % ( - 0) % Nucleated RBC % Not Reportable Neutrophils # (Manual) 5.5 (1.5-6.6) 10^3/uL Lymphocytes # (Manual) 0.9 L (1.5-3.5) 10^3/uL Monocytes # (Manual) 0.6 (0.0-1.0) 10^3/uL Eosinophils # (Manual) 0.0 (0-0.7) 10^3/uL Basophils # (Manual) 0.0 (0-0.1) 10^3/uL Differential Comment MANUAL DIFFERENTIAL Platelet Estimate NORMAL (130-450,000) (NORMAL) Platelet Morphology NORMAL APPEARANCE (NORMAL) RBC Morph Micro Appear NORMAL APPEARANCE (NORMAL) VBG pH (7.31-7.41) Ionized Calcium (1.15-1.33) mmol/L Sodium 132 L (135-145) mmol/L Potassium 4.9 (3.5-5.0) mmol/L Chloride 100 L (101-111) mmol/L Carbon Dioxide 24 (21-32) mmol/L Anion Gap 8.0 (6-13) BUN 16 (6-20) mg/dL Creatinine 0.8 (0.6-1.2) mg/dL Estimated GFR (MDRD) 107 (>89) Glucose 180 H (70-100) mg/dL Lactic Acid (0.5-2.2) mmol/L Calcium 7.9 L (8.5-10.3) mg/dL Phosphorus (2.5-4.6) mg/dL Magnesium (1.7-2.8) mg/dL Total Bilirubin (0.2-1.0) mg/dL AST (10-42) IU/L ALT (10-60) IU/L Alkaline Phosphatase (42-121) IU/L Troponin I High Sens (2.3-19.7) ng/L Total Protein (6.7-8.2) g/dL Albumin (3.2-5.5) g/dL Globulin (2.1-4.2) g/dL Albumin/Globulin Ratio (1.0-2.2) Lipase (22-51) U/L Urine Color Urine Clarity (CLEAR) Urine pH (5.0-7.5) PH Ur Specific [place] (1.002-1.030) Urine Protein (NEGATIVE) mg/dL Urine Glucose (UA) (NEGATIVE) mg/dL Urine Ketones (NEGATIVE) mg/dL Urine Occult Blood (NEGATIVE) Urine Nitrite (NEGATIVE) Urine Bilirubin (NEGATIVE) Urine Urobilinogen (NORMAL) E.U./dL Ur Leukocyte Esterase (NEGATIVE) Urine RBC (0-5) /HPF Urine WBC (0-3) /HPF Ur Squamous Epith Cells (<= Few) Urine Bacteria (None Seen) /HPF Ur Microscopic Review Urine Culture Comments Nasal Screen MRSA (PCR) NEGATIVE (NEGATIVE) 09/08/22 09/08/22 09/08/22 Range/Units 16:22 14:35 14:22 WBC (4.8-10.8) x10^3/uL RBC (4.70-6.10) 10^6/uL Hgb (14.0-18.0) g/dL Hct (42.0-52.0) % MCV (80.0-94.0) fL MCH (27.0-31.0) pg MCHC (32.0-36.0) g/dL RDW (12.0-15.0) % Plt Count (130-450) 10^3/uL MPV (7.4-11.4) fL Neut # (Auto) Lymph # (Auto) [place] # (Auto) Eos # (Auto) Baso # (Auto) Absolute Nucleated RBC Total Counted Band Neuts % (Manual) (0 - 10) % Reactive Lymphs % (Man) % Abnorm Lymph % (Manual) % Metamyelocytes % ( - 0) % Myelocytes % ( - 0) % Nucleated RBC % Neutrophils # (Manual) (1.5-6.6) 10^3/uL Lymphocytes # (Manual) (1.5-3.5) 10^3/uL Monocytes # (Manual) (0.0-1.0) 10^3/uL Eosinophils # (Manual) (0-0.7) 10^3/uL Basophils # (Manual) (0-0.1) 10^3/uL Differential Comment Platelet Estimate (NORMAL) Platelet Morphology (NORMAL) RBC Morph Micro Appear (NORMAL) VBG pH (7.31-7.41) Ionized Calcium (1.15-1.33) mmol/L Sodium 132 L (135-145) mmol/L Potassium 3.8 (3.5-5.0) mmol/L Chloride 96 L (101-111) mmol/L Carbon Dioxide 25 (21-32) mmol/L Anion Gap 11.0 (6-13) BUN 19 (6-20) mg/dL Creatinine 0.8 (0.6-1.2) mg/dL Estimated GFR (MDRD) 107 (>89) Glucose 169 H (70-100) mg/dL Lactic Acid 2.2 (0.5-2.2) mmol/L Calcium 9.1 (8.5-10.3) mg/dL Phosphorus (2.5-4.6) mg/dL Magnesium (1.7-2.8) mg/dL Total Bilirubin 1.5 H (0.2-1.0) mg/dL AST 30 (10-42) IU/L ALT 49 (10-60) IU/L Alkaline Phosphatase 82 (42-121) IU/L Troponin I High Sens 5.0 (2.3-19.7) ng/L Total Protein 7.4 (6.7-8.2) g/dL Albumin 3.7 (3.2-5.5) g/dL Globulin 3.7 (2.1-4.2) g/dL Albumin/Globulin Ratio 1.0 (1.0-2.2) Lipase 24 (22-51) U/L Urine Color Urine Clarity (CLEAR) Urine pH (5.0-7.5) PH Ur Specific [place] (1.002-1.030) Urine Protein (NEGATIVE) mg/dL Urine Glucose (UA) (NEGATIVE) mg/dL Urine Ketones (NEGATIVE) mg/dL Urine Occult Blood (NEGATIVE) Urine Nitrite (NEGATIVE) Urine Bilirubin (NEGATIVE) Urine Urobilinogen (NORMAL) E.U./dL Ur Leukocyte Esterase (NEGATIVE) Urine RBC (0-5) /HPF Urine WBC (0-3) /HPF Ur Squamous Epith Cells (<= Few) Urine Bacteria (None Seen) /HPF Ur Microscopic Review Urine Culture Comments Nasal Screen MRSA (PCR) (NEGATIVE) 09/08/22 12 Range/Units 14:22 12:50 WBC 7.1 (4.8-10.8) x10^3/uL RBC 4.66 L (4.70-6.10) 10^6/uL Hgb 13.9 L (14.0-18.0) g/dL Hct 41.5 L (42.0-52.0) % MCV 89.1 (80.0-94.0) fL MCH 29.8 (27.0-31.0) pg MCHC 33.5 (32.0-36.0) g/dL RDW 12.4 (12.0-15.0) % Plt Count 278 (130-450) 10^3/uL MPV 9.9 (7.4-11.4) fL Neut # (Auto) Not Reportable Lymph # (Auto) Not Reportable [place] # (Auto) Not Reportable Eos # (Auto) Not Reportable Baso # (Auto) Not Reportable Absolute Nucleated RBC Not Reportable Total Counted 100 Band Neuts % (Manual) 25 H (0 - 10) % Reactive Lymphs % (Man) % Abnorm Lymph % (Manual) 0 % Metamyelocytes % ( - 0) % Myelocytes % ( - 0) % Nucleated RBC % Not Reportable Neutrophils # (Manual) 6.4 (1.5-6.6) 10^3/uL Lymphocytes # (Manual) 0.4 L (1.5-3.5) 10^3/uL Monocytes # (Manual) 0.3 (0.0-1.0) 10^3/uL Eosinophils # (Manual) 0.0 (0-0.7) 10^3/uL Basophils # (Manual) 0.0 (0-0.1) 10^3/uL Differential Comment MANUAL DIFFERENTIAL Platelet Estimate NORMAL (130-450,000) (NORMAL) Platelet Morphology NORMAL APPEARANCE (NORMAL) RBC Morph Micro Appear NORMAL APPEARANCE (NORMAL) VBG pH (7.31-7.41) Ionized Calcium (1.15-1.33) mmol/L Sodium (135-145) mmol/L Potassium (3.5-5.0) mmol/L Chloride (101-111) mmol/L Carbon Dioxide (21-32) mmol/L Anion Gap (6-13) BUN (6-20) mg/dL Creatinine (0.6-1.2) mg/dL Estimated GFR (MDRD) (>89) Glucose (70-100) mg/dL Lactic Acid (0.5-2.2) mmol/L Calcium (8.5-10.3) mg/dL Phosphorus (2.5-4.6) mg/dL Magnesium (1.7-2.8) mg/dL Total Bilirubin (0.2-1.0) mg/dL AST (10-42) IU/L ALT (10-60) IU/L Alkaline Phosphatase (42-121) IU/L Troponin I High Sens (2.3-19.7) ng/L Total Protein (6.7-8.2) g/dL Albumin (3.2-5.5) g/dL Globulin (2.1-4.2) g/dL Albumin/Globulin Ratio (1.0-2.2) Lipase (22-51) U/L Urine Color YELLOW Urine Clarity CLEAR (CLEAR) Urine pH 6.0 (5.0-7.5) PH Ur Specific [place] >=1.030 H (1.002-1.030) Urine Protein 30 H (NEGATIVE) mg/dL Urine Glucose (UA) 500 H (NEGATIVE) mg/dL Urine Ketones >=80 H (NEGATIVE) mg/dL Urine Occult Blood [place] (NEGATIVE) Urine Nitrite NEGATIVE (NEGATIVE) Urine Bilirubin NEGATIVE (NEGATIVE) Urine Urobilinogen 1 (NORMAL) (NORMAL) E.U./dL Ur Leukocyte Esterase NEGATIVE (NEGATIVE) Urine RBC 0-5 (0-5) /HPF Urine WBC 0-3 (0-3) /HPF Ur Squamous Epith Cells NONE SEEN (<= Few) Urine Bacteria None Seen (None Seen) /HPF Ur Microscopic Review INDICATED Urine Culture Comments NOT INDICATED Nasal Screen MRSA (PCR) (NEGATIVE) - Current Medications Current Medications: Current Medications Generic Name Dose Route Start Last Admin Trade Name Freq PRN Reason Stop Dose Admin Fentanyl 50 mcg 09/09/22 03:46 09/09/22 09:28 Fentanyl 100 Mcg/2 Ml Vial IVP 50 mcg Q2HR PRN Administration PAIN OVER 5 Heparin Sodium (Porcine) 5,000 unit 09/08/22 17:00 09/09/22 01:31 Heparin 5,000 Unit/Ml Vial SUBQ 5,000 unit BID CHARLIE Administration Hydromorphone HCl 0 mg 09/08/22 23:30 09/09/22 09:13 Hydromorphone Concrete Pump Operator Helper 20mg/100ml IV 20 mg PRN PRN Administration PAIN Protocol Lactated Ringer's 1,000 mls @ 150 mls/hr 09/08/22 19:41 09/09/22 09:21 Lr IV 150 mls/hr .[id number] CHARLIE Administration Metronidazole 500 mg in 100 mls @ 100 mls/hr 09/08/22 22:00 09/09/22 06:36 Flagyl 500 Mg/100 Ml IV 09/13/22 21:59 0 mls/hr Q8HR CHARLIE Infusion Ketorolac Tromethamine 30 mg 09/08/22 20:00 09/09/22 09:29 Ketorolac 30 Mg/Ml Vial IVP 09/09/22 20:01 30 mg Q6H CHARLIE Administration Lorazepam 0.5 mg 09/08/22 19:29 09/09/22 09:29 Lorazepam 2 Mg/Ml Vial IVP 0.5 mg Q1H PRN Administration Anxiety Oxycodone HCl 10 mg 09/09/22 07:36 09/09/22 08:01 Oxycodone 5 Mg Tablet PO 10 mg Q4HR PRN Administration PAIN OVER 5 Pantoprazole Sodium 40 mg 09/09/22 07:00 09/09/22 06:42 Pantoprazole 40 Mg Vial IVP 40 mg QDAC CHARLIE Administration Phenol/Menthol 2 sprays 09/08/22 21:18 09/08/22 21:51 Phenol Throat [place] 177 Ml MM 2 sprays Q2HR PRN Administration Throat Pain Prochlorperazine Edisylate 10 mg 09/08/22 19:29 09/09/22 09:29 Prochlorperazine 10 Mg/2 Ml Vial IVP 10 mg Q4HR PRN Administration Nausea / Vomiting Sodium Chloride 10 ml 09/08/22 17:00 09/09/22 09:20 Sodium Chloride Flush 0.9% 10 Ml Syringe IVP 10 ml 0100,0900,1700 CHARLIE Administration Sodium Chloride 10 ml 09/09/22 01:00 09/09/22 09:21 Sodium Chloride Flush 0.9% 10 Ml Syringe IVP 10 ml 0100,0900,1700 CHARLIE Administration Throat Lozenges 1 lozenge 09/08/22 21:18 09/09/22 08:54 Benzocaine/Menthol Lozenge MM 1 lozenge Q2HR PRN Administration Throat pain - Physical Exam Wound/Incisions: positive: Dressing dry and intact, Other (Midline wound open and SQ and fascia clean; Dressing changed this morning by me.) General Appearance: positive: Mild distress Eyes Bilateral: positive: Normal inspection, PERRL ENT: positive: ENT inspection nml Neck: positive: Nml inspection, No JVD, Trachea midline, Other (NGT output 300 ml) Respiratory: positive: Chest non-tender, No respiratory distress, Breath sounds nml Cardiovascular: positive: Tachycardia Abdomen: positive: Other (Soft; mild distension; LLQ colostomy pink and edematous; No output in pouch; BS few; Incision clean and dry with normal appearing fascial and SQ) Skin: positive: Color nml Extremities: positive: Full ROM, Nml appearance Neurologic/Psychiatric: positive: Oriented x3 Comments/Other: UOP 380 ml since surgery Impression/Plan - Problem List Problem List: Assessment: 1) POD # 1 Exploratory laparotomy, colectomy and colostomy for fecal peritonitis - progressing well although abdominal incisional pain control seems to be an issue. Currently on QUICK SKETCH ARTIST Dilaudid with 0.3 mg bolus with 8 minute lockout, breakthrough Fentanyl 50 mcg Q 2 hrs; IV Ketorolac; LIZZIE. Needs new IV for continued pain control and fluid/AB infusions 2) Mild volume depletion - Urine appears concentrated but output is adequate Plan: 1) Central line to be placed this morning 2) Continue QUICK SKETCH ARTIST and Fentanyl as needed. 3) Nicotine patch 4) Continue IV Ceftriaxone/Flagyl for total of 5 days 5) Continue VTEP (SCD/BID Heparin) 6) Continue NGT until bowel activity 7) Begin ambulation and chair today 8) BID local wound care. If I can find a negative pressure dressing, I will use it. 9) Awaiting peritoneal culture results 10) Continue IV fluids at 150 ml for hour for next 6-8 hours and then assess fluid balance Denzel Tse MD General Surgery Service
--- NOTE | 2022-09-09 09:58 | OPERATIVE REPORT ---
Operative Report - General Admit Date: 09/08/22 - Other Other Information/Narrative: PROCEDURE: Right internal jugular central venous line placement using dynamic ultrasound SURGEON: Mark Tse MD, [facility] ANESTHESIA: Local COMPLICATIONS: None ESTIMATED BLOOD LOSS: 1 ml LOCATION: ICU DESCRIPTION OF OPERATION IS FOLLOWS: After consent for the procedure was obtained, the patient was positioned in a steep Trendelenburg position with a roll of towels under the shoulder blades. The right anterior chest wall and neck, were prepped with chloroprep and draped in a sterile fashion. 1% lidocaine with epinephrine was used for local anesthesia throughout the procedure. A SonAuthentic8 Ultrasound Device was used to assist in the insertion and placement of the central line. Under sterile conditions (Skin prep/Gloves/Gown/Mask/Cap), a 6-15 MHz hand held linear transducer,which was enclosed in a sterile protective sleeve, was used to interrogate the right neck. The right lobe of the thyroid, the right carotid artery and the right internal jugular vein were identified. An 18 gauge needle was then placed into the right internal jugular vein using real-time ultrasonography. A guide wire place through the 18 gauge needle and the 18 gauge needle was removed. A small opening in the skin adjacent to the guide wire was made with a 15 blade scalpel and a vein dilator was placed over the guide wire into the right internal jugular vein. A triple lumen catheter was then placed over the guide wire into the internal jugular vein, the guidewire was removed and the catheter was secured in place with a 3-0 silk suture and an external flange. Each of the three lumens were flushed with saline and capped. Dressings were placed. The patient was taken out of Trendelenburg and the towels removed from behind his back. A post procedure CXR was obtained indicating that the tip of the catheter was in the right atrium and that there was no pneumothorax. The patient tolerated the procedure well. The nursing staff is instructed to begin using the new catheter. Denzel Tse MD General Surgery Service
[2022-09-09] MEDS ORDERED: NICOTINE 7 MG PATCH TOP SCH (12:00)
--- NOTE | 2022-09-09 15:09 | ANESTHESIA POST OP EVALUATION ---
Anesthesia Post Eval - Post Anesthesia Eval Vitals: Last Vital Signs Temp 37.2 C 09/09/22 13:08 Pulse 122 H 09/09/22 14:00 Resp 22 09/09/22 14:00 BP 157/95 H 09/09/22 14:00 Pulse Ox 96 09/09/22 14:00 O2 Flow Rate 2 09/09/22 10:00 CV Function Including HR & BP: Stable Pain Control: Satisfactory Nausea & Vomiting: Negative Mental Status: Baseline Respiratory Status: Airway Patent Hydration Status: Satisfactory Anesthesia Complications: None
--- NOTE | 2022-09-09 15:35 | PROVIDER PROGRESS NOTE ---
Progress Note Notified by nursing staff of sinus tachycardia. No chest pain, No SOB. EKG shows sinus tachycardia (130's). With additional pain control, the heart rate is now at 117. UOP good; Ostomy pink and viable. Will continue IV fluids at 150 ml/hr as I suspect there is third spacing due to the extent of the peritonitis. Labs in am have been ordered Denzel Tse MD General Surgery Service
[2022-09-09] MEDS ORDERED: CALCIUM GLUC 1,000MG/50ML-NACL 1,000 MG/50 ML BAG IV ONE ×2 (16:00→18:51)
--- NOTE | 2022-09-09 16:42 | PROVIDER PROGRESS NOTE ---
Progress Note The initial blood culture identifies a gram negative bacillus. This is probably enterococcus faecalis given the intestinal source of the infection. I have decided, based on the hospital's 2021 antibiogram, to switch from Ceftriaxone to Ciprofloxacin to better cover this organism. Denzel Tse MD General Surgery Service
[2022-09-09] MEDS: CIPROFLOXACIN 400 MG/200 ML 400 MG/200 ML BAG IV SCH (17:07)
[2022-09-09] MEDS: SODIUM CHLORIDE FLUSH 0.9% 10 ML SYRINGE IVP PRN (17:10)
[2022-09-09 18:37] LABS: CALCIUM, IONIZED 1.08 mmol/L (1.15-1.33); VBG PH 7.465 (7.31-7.41)
[2022-09-10] MEDS: BENZOCAINE/MENTHOL LOZENGE MM PRN ×3 (01:27→11:18)
[2022-09-10] MEDS: CIPROFLOXACIN 400 MG/200 ML 400 MG/200 ML BAG IV SCH ×2 (05:06→17:48)
[2022-09-10] MEDS: SODIUM CHLORIDE FLUSH 0.9% 10 ML SYRINGE IVP PRN ×2 (05:11→06:18)
[2022-09-10] MEDS: LACTATED RINGERS 1,000 ML IV SCH ×2 (05:12→09:15)
[2022-09-10] MEDS: SODIUM CHLORIDE FLUSH 0.9% 10 ML SYRINGE IVP SCH ×5 (05:12→18:12)
[2022-09-10 05:22] LABS: BASOPHILS # (AUTO) 0.1 10^3/uL (0.0-0.1); BASOPHILS % (AUTO) 0.5 %; HCT - HEMATOCRIT 30.3 % (42.0-52.0); LYMPHOCYTES # (AUTO) 1.1 10^3/uL (1.5-3.5); LYMPHOCYTES % (AUTO) 6.7 %; MEAN CORPUSCULAR HEMOGLOBIN 29.9 pg (27.0-31.0); MEAN CORPUSCULAR VOLUME 90.7 fL (80.0-94.0); MEAN PLATELET VOLUME 8.8 fL (7.4-11.4); MONOCYTES # (AUTO) 0.6 10^3/uL (0.0-1.0); MONOCYTES % (AUTO) 3.7 %; NEUTROPHILS # (AUTO) 14.8 10^3/uL (1.5-6.6); NEUTROPHILS % (AUTO) 87.1 %; PLT - PLATELET COUNT 249 10^3/uL (130-450); RED BLOOD COUNT 3.34 10^6/uL (4.70-6.10); RED CELL DISTRIBUTION WIDTH 13.1 % (12.0-15.0)
[2022-09-10 05:23] LABS: CALCIUM, IONIZED 1.11 mmol/L (1.15-1.33); VBG PH 7.454 (7.31-7.41)
[2022-09-10 05:33] LABS: CREATININE 0.7 mg/dL (0.6-1.2); PHOSPHORUS 2.2 mg/dL (2.5-4.6); POTASSIUM 3.8 mmol/L (3.5-5.0)
[2022-09-10] MEDS: metroNIDAZOLE 500 MG/100 ML 500 MG/100 ML BAG IV SCH ×3 (06:18→21:39)
[2022-09-10] MEDS: PANTOPRAZOLE 40 MG VIAL IVP SCH (06:18)
[2022-09-10] MEDS ORDERED: POTASSIUM PHOSPHATE 15 MMOL in SODIUM CHLORIDE 0.9% 250 ML IV ONE (08:00)
--- NOTE | 2022-09-10 08:09 | PROVIDER PROGRESS NOTE ---
Subjective - General Admit Date: 09/08/22 Procedure Date: 09/08/22 Post Op Days: 2 Procedure Performed: Exploratory laparotomy, sigmoid colectomy, colostomy - Review of Systems Wound/Incisions: positive: Other Drain Type: Donal Drain Output Description: serosanguinous Approximate mls Output: 125 General: positive: Other (Feels better; No nausea or vomiting; No flatus; NGT bothersome to him; Ambulatory; Would prefer a stronger nicotine patch) All Other Systems: positive: Other (Pain control an issue last night; Peripheral IV lost this morning; NGT bothersome to patient; Desires nicotine patch) Objective - Patient Data Vital Signs: Vital Signs x48h Temp Pulse Resp BP BP Pulse Ox 09/10/22 07:00 88 11 L 144/70 H 95 09/10/22 06:19 15 09/10/22 06:00 89 18 153/98 H 97 09/10/22 05:10 106 H 14 146/96 H 95 09/10/22 05:00 98.1 F 15 09/10/22 04:00 101 H 14 150/96 H 96 09/10/22 03:00 119 H 16 129/80 94 09/10/22 02:00 100 15 96 09/10/22 01:00 107 H 19 146/100 H 96 Weight: Weight 09/08/22 09/09/22 09/10/22 23:59 23:59 23:59 Weight (kg) 80.5 kg 81 kg 82 kg Intake & Output: Intake and Output Totals x24h 09/08/22 09/09/22 09/10/22 23:59 23:59 23:59 Intake Total 1202.5 5075.000 2030 Output Total 240 3508 1155 Balance 962.5 1567.000 875 - Lab Results Lab Results: 09/10/22 05:15 09/10/22 05:15 Other Lab Results: Lab Results x24hrs 09/10/22 09/10/22 09/10/22 Range/Units 05:15 05:15 05:15 WBC 17.0 H (4.8-10.8) x10^3/uL RBC 3.34 L (4.70-6.10) 10^6/uL Hgb 10.0 L (14.0-18.0) g/dL Hct 30.3 L (42.0-52.0) % MCV 90.7 (80.0-94.0) fL MCH 29.9 (27.0-31.0) pg MCHC 33.0 (32.0-36.0) g/dL RDW 13.1 (12.0-15.0) % Plt Count 249 (130-450) 10^3/uL MPV 8.8 (7.4-11.4) fL Neut # (Auto) 14.8 H (1.5-6.6) 10^3/uL Lymph # (Auto) 1.1 L (1.5-3.5) 10^3/uL [place] # (Auto) 0.6 (0.0-1.0) 10^3/uL Eos # (Auto) 0.0 (0.0-0.7) 10^3/uL Baso # (Auto) 0.1 (0.0-0.1) 10^3/uL Absolute Nucleated RBC 0.00 x10^3/uL Nucleated RBC % 0.0 /100WBC VBG pH 7.454 H (7.31-7.41) Ionized Calcium 1.11 L (1.15-1.33) mmol/L Sodium (135-145) mmol/L Potassium (3.5-5.0) mmol/L Chloride (101-111) mmol/L Carbon Dioxide (21-32) mmol/L Anion Gap (6-13) BUN (6-20) mg/dL Creatinine (0.6-1.2) mg/dL Estimated GFR (MDRD) (>89) Glucose (70-100) mg/dL Calcium (8.5-10.3) mg/dL Phosphorus 2.2 L (2.5-4.6) mg/dL Magnesium (1.7-2.8) mg/dL 09/10/22 09/09/22 09/09/22 Range/Units 05:15 18:17 18:17 WBC (4.8-10.8) x10^3/uL RBC (4.70-6.10) 10^6/uL Hgb (14.0-18.0) g/dL Hct (42.0-52.0) % MCV (80.0-94.0) fL MCH (27.0-31.0) pg MCHC (32.0-36.0) g/dL RDW (12.0-15.0) % Plt Count (130-450) 10^3/uL MPV (7.4-11.4) fL Neut # (Auto) (1.5-6.6) 10^3/uL Lymph # (Auto) (1.5-3.5) 10^3/uL [place] # (Auto) (0.0-1.0) 10^3/uL Eos # (Auto) (0.0-0.7) 10^3/uL Baso # (Auto) (0.0-0.1) 10^3/uL Absolute Nucleated RBC x10^3/uL Nucleated RBC % /100WBC VBG pH 7.465 H (7.31-7.41) Ionized Calcium 1.08 L (1.15-1.33) mmol/L Sodium 133 L (135-145) mmol/L Potassium 3.8 (3.5-5.0) mmol/L Chloride 100 L (101-111) mmol/L Carbon Dioxide 24 (21-32) mmol/L Anion Gap 9.0 (6-13) BUN 15 (6-20) mg/dL Creatinine 0.7 (0.6-1.2) mg/dL Estimated GFR (MDRD) 125 (>89) Glucose 103 H (70-100) mg/dL Calcium 8.0 L (8.5-10.3) mg/dL Phosphorus 2.2 L (2.5-4.6) mg/dL Magnesium 2.0 2.1 (1.7-2.8) mg/dL - Current Medications Current Medications: Current Medications Generic Name Dose Route Start Last Admin Trade Name Freq PRN Reason Stop Dose Admin Fentanyl 50 mcg 09/09/22 03:46 09/09/22 22:22 Fentanyl 100 Mcg/2 Ml Vial IVP 50 mcg Q2HR PRN Administration PAIN OVER 5 Heparin Sodium (Porcine) 5,000 unit 09/08/22 17:00 09/09/22 20:24 Heparin 5,000 Unit/Ml Vial SUBQ 5,000 unit BID CHARLIE Administration Hydromorphone HCl 0 mg 09/08/22 23:30 09/09/22 18:02 Hydromorphone Mandrel Maker 20mg/100ml IV 20 mg PRN PRN Administration PAIN Protocol Lactated Ringer's 1,000 mls @ 150 mls/hr 09/08/22 19:41 09/10/22 07:00 Lr IV 150 mls/hr .Q6H40M CHARLIE Infusion Metronidazole 500 mg in 100 mls @ 100 mls/hr 09/08/22 22:00 09/10/22 07:18 Flagyl 500 Mg/100 Ml IV 09/13/22 21:59 Infused Q8HR CHARLIE Infusion Ciprofloxacin 400 mg in 200 mls @ 200 mls/hr 09/09/22 17:00 09/10/22 06:10 Cipro 400 Mg/200 Ml IV Infused Q12H CHARLIE Infusion Lorazepam 0.5 mg 09/08/22 19:29 09/09/22 09:29 Lorazepam 2 Mg/Ml Vial IVP 0.5 mg Q1H PRN Administration Anxiety Nicotine 1 patch 09/09/22 12:00 09/09/22 11:42 Nicotine 7 Mg Patch TOP 1 patch DAILY CHARLIE Administration Oxycodone HCl 10 mg 09/09/22 07:36 09/09/22 08:01 Oxycodone 5 Mg Tablet PO 10 mg Q4HR PRN Administration PAIN OVER 5 Pantoprazole Sodium 40 mg 09/09/22 07:00 09/10/22 06:18 Pantoprazole 40 Mg Vial IVP 40 mg QDAC CHARLIE Administration Phenol/Menthol 2 sprays 09/08/22 21:18 09/08/22 21:51 Phenol Throat [place] 177 Ml MM 2 sprays Q2HR PRN Administration Throat Pain Prochlorperazine Edisylate 10 mg 09/08/22 19:29 09/09/22 09:29 Prochlorperazine 10 Mg/2 Ml Vial IVP 10 mg Q4HR PRN Administration Nausea / Vomiting Sodium Chloride 10 ml 09/08/22 17:00 09/09/22 22:15 Sodium Chloride Flush 0.9% 10 Ml Syringe IVP 10 ml 0100,0900,1700 CHARLIE Administration Sodium Chloride 10 ml 09/08/22 16:07 09/10/22 06:18 Sodium Chloride Flush 0.9% 10 Ml Syringe IVP 10 ml PRN PRN Administration NEEDED PER PROVIDER ORDERS Sodium Chloride 10 ml 09/09/22 01:00 09/10/22 05:12 Sodium Chloride Flush 0.9% 10 Ml Syringe IVP 10 ml 0100,0900,1700 CHARLIE Administration Sodium Chloride 20 ml 09/09/22 21:11 09/10/22 05:11 Sodium Chloride Flush 0.9% 10 Ml Syringe IVP 20 ml PRN PRN Administration After Blood Draw Throat Lozenges 1 lozenge 09/08/22 21:18 09/10/22 07:53 Benzocaine/Menthol Lozenge MM 1 lozenge Q2HR PRN Administration Throat pain - Physical Exam Wound/Incisions: positive: Other (Midline wound open and clean. Will apply wound vac later today) General Appearance: positive: No acute distress, Alert Eyes Bilateral: positive: Normal inspection, PERRL ENT: positive: ENT inspection nml, Pharynx nml, Other (NGT in place) Neck: positive: Nml inspection, Other (Right IJ secure and functional) Respiratory: positive: Chest non-tender, No respiratory distress, Breath sounds nml Cardiovascular: positive: Regular rate & rhythm, Other (Pulse 88 when resting) Abdomen: positive: Other (Soft; minimal tenderness; ostomy in LLQ pink and viable; No flatus or stool) Skin: positive: Color nml, Warm, Dry Extremities: positive: Non-tender, Full ROM Neurologic/Psychiatric: positive: Oriented x3 ABX Reporting Has patient been on IV antibiotics over the past 48 hours?: Yes Impression/Plan - Problem List Problem List: Assessment: 1) Fecal peritonitis due to perforated sigmoid colon - source control has been achieved with laparotomy, colectomy, colostomy, washout, drainage 2) Gm + bacteremia - On Cipro/Flagyl 3) Tachycardia - probably related to initial dehydration and subsequent third spacing. With volume resuscitation, his tachycardia has resolved and his UOP has improved. 4) Midline open wound - healing well - wound vac later today 5) Post-op ileus - Will try NGT clamping trial this morning 6) Nicotine dependence Plan: 1) Decrease IV fluids to maintenance 2) Remove del rosario 3) Negative pressure dressing today 4) Ambulation 5) Nicotine patch 14 mg/d 6) Continue IV antibiotics. Today is Day 3/7. ( I now plan 7 days due to the bacteremia) 7) NGT clamping trial. Denzel Tse MD General Surgery Service
[2022-09-10] MEDS ORDERED: NICOTINE 7 MG PATCH TOP SCH (09:00)
[2022-09-10] MEDS: fentaNYL 100 MCG/2 ML VIAL IVP PRN ×3 (09:24→15:38)
[2022-09-10] MEDS: NICOTINE 14 MG PATCH TOP SCH (09:26)
[2022-09-10] MEDS: HEPARIN 5,000 UNIT/ML VIAL SUBQ SCH ×2 (09:38→21:27)
[2022-09-10] MEDS: HYDROmorphone PCA 20MG/100ML IV PRN (12:43)
--- NOTE | 2022-09-10 14:05 | PROVIDER PROGRESS NOTE ---
Progress Note Negative Pressure Dressing Note The midline wound is inspected and is healthy. It is 19 cm in length and 5 cm in greatest width. A negative pressure dressing using black foam was customized to the appropriate size, gently inserted into the wound, and secured to the skin with transparent adhesive strips. -125 continuous low suction was applied and no leaks were encountered. The patient tolerated the procedure well. Denzel Tse MD General Surgery Service
[2022-09-10] MEDS: oxyCODONE 5 MG TABLET PO PRN (17:47)
[2022-09-10] MEDS ORDERED: KETOROLAC 15 MG/ML VIAL IVP SCH (18:00)
[2022-09-10] MEDS ORDERED: ACETAMINOPHEN 500 MG TABLET PO SCH (21:00)
[2022-09-10] MEDS: GABAPENTIN 300 MG CAPSULE PO SCH (21:28)
[2022-09-10] MEDS ORDERED: ACETAMINOPHEN 325 MG TABLET PO ONE (21:31)
[2022-09-10] MEDS: HYDROmorphone 2 MG/ML VIAL IVP PRN (22:14)
[2022-09-10] MEDS: diphenhydrAMINE INJ 50 MG/ML VIAL IVP PRN (22:14)
[2022-09-11] MEDS: LACTATED RINGERS 1,000 ML IV SCH ×4 (00:07→22:11)
[2022-09-11] MEDS: SODIUM CHLORIDE FLUSH 0.9% 10 ML SYRINGE IVP PRN ×6 (00:08→20:13)
[2022-09-11] MEDS: KETOROLAC 30 MG/ML VIAL IVP SCH ×4 (00:08→17:41)
[2022-09-11] MEDS: SODIUM CHLORIDE FLUSH 0.9% 10 ML SYRINGE IVP SCH ×8 (00:33→23:50)
[2022-09-11] MEDS: ACETAMINOPHEN 325 MG TABLET PO SCH ×6 (01:07→22:02)
[2022-09-11] MEDS: LORazepam 2 MG/ML VIAL IVP PRN (01:08)
[2022-09-11] MEDS: HYDROmorphone 2 MG/ML VIAL IVP PRN ×9 (01:13→23:49)
[2022-09-11] MEDS: CIPROFLOXACIN 400 MG/200 ML 400 MG/200 ML BAG IV SCH ×2 (04:36→17:38)
[2022-09-11 04:59] LABS: CALCIUM, IONIZED 1.1 mmol/L (1.15-1.33); VBG PH 7.432 (7.31-7.41)
[2022-09-11 05:09] LABS: MAGNESIUM 1.7 mg/dL (1.7-2.8); PHOSPHORUS 2.3 mg/dL (2.5-4.6)
[2022-09-11] MEDS: GABAPENTIN 300 MG CAPSULE PO SCH ×3 (06:15→22:10)
[2022-09-11] MEDS: CALCIUM CARBONATE CHEW 500 MG TABLET PO SCH ×2 (06:16→11:03)
[2022-09-11] MEDS: PANTOPRAZOLE 40 MG VIAL IVP SCH (06:16)
[2022-09-11] MEDS: metroNIDAZOLE 500 MG/100 ML 500 MG/100 ML BAG IV SCH ×3 (06:16→22:07)
--- NOTE | 2022-09-11 07:26 | PROVIDER PROGRESS NOTE ---
Subjective - General Admit Date: 09/08/22 Procedure Date: 09/08/22 Post Op Days: 3 Procedure Performed: Exploratory laparotomy, sigmoid colectomy, colostomy - Review of Systems Wound/Incisions: positive: Other (Pain under better control; No nausea or vomiting;) Drain Type: Donal Drain Output Description: serosanguinous Approximate mls Output: 30 General: positive: Other (Feels better; No nausea or vomiting; No flatus; NGT bothersome to him; Ambulatory; Would prefer a stronger nicotine patch) All Other Systems: positive: Other (Pain control an issue last night; Peripheral IV lost this morning; NGT bothersome to patient; Desires nicotine patch) Objective - Patient Data Vital Signs: Vital Signs x48h Temp Pulse Resp BP Pulse Ox 09/11/22 07:00 85 11 L 140/89 H 97 09/11/22 06:00 107 H 16 141/94 H 96 09/11/22 05:00 99.1 F 93 13 145/93 H 97 09/11/22 04:00 95 15 147/101 H 97 09/11/22 03:00 99 14 148/92 H 96 09/11/22 02:00 101 H 15 148/93 H 96 09/11/22 01:00 108 H 13 146/95 H 96 09/11/22 00:00 91 15 143/95 H 97 Weight: Weight 09/09/22 09/10/22 09/11/22 23:59 23:59 23:59 Weight (kg) 81 kg 82 kg 86 kg Intake & Output: Intake and Output Totals x24h 09/09/22 09/10/22 09/11/22 23:59 23:59 23:59 Intake Total 5075.000 5165 1230 Output Total 3508 3485 1325 Balance 5323.244 2296 -95 - Lab Results Lab Results: 09/10/22 05:15 09/11/22 04:30 Other Lab Results: Lab Results x24hrs 09/11/22 09/11/22 09/11/22 Range/Units 04:30 04:30 04:30 VBG pH 7.432 H (7.31-7.41) Ionized Calcium 1.10 L (1.15-1.33) mmol/L Potassium 3.5 (3.5-5.0) mmol/L Phosphorus 2.3 L (2.5-4.6) mg/dL Magnesium 1.7 (1.7-2.8) mg/dL - Current Medications Current Medications: Current Medications Generic Name Dose Route Start Last Admin Trade Name Freq PRN Reason Stop Dose Admin Acetaminophen 650 mg 09/11/22 01:00 09/11/22 04:35 Acetaminophen 325 Mg Tablet PO 650 mg Q4HR CHARLIE Administration Calcium Carbonate/Glycine 1,250 mg 09/11/22 07:00 09/11/22 06:16 Calcium Carbonate Chew 500 Mg Tablet PO 09/11/22 11:01 1,250 mg Q4H CHARLIE Administration Protocol Diphenhydramine HCl 25 mg 09/08/22 19:29 09/10/22 22:14 Diphenhydramine Inj 50 Mg/Ml Vial IVP 25 mg Q6HR PRN Administration ITCHING Fentanyl 50 mcg 09/09/22 03:46 09/10/22 15:38 Fentanyl 100 Mcg/2 Ml Vial IVP 50 mcg Q2HR PRN Administration PAIN OVER 5 Gabapentin 300 mg 09/10/22 22:00 09/11/22 06:15 Gabapentin 300 Mg Capsule PO 300 mg TID CHARLIE Administration Heparin Sodium (Porcine) 5,000 unit 09/08/22 17:00 09/10/22 21:27 Heparin 5,000 Unit/Ml Vial SUBQ 5,000 unit BID CHARLIE Administration Hydromorphone HCl 2 mg 09/10/22 17:50 09/11/22 04:35 Hydromorphone 2 Mg/Ml Vial IVP 2 mg Q2H PRN Administration PAIN Metronidazole 500 mg in 100 mls @ 100 mls/hr 09/08/22 22:00 09/11/22 07:22 Flagyl 500 Mg/100 Ml IV 09/13/22 21:59 Infused Q8HR CHARLIE Infusion Ciprofloxacin 400 mg in 200 mls @ 200 mls/hr 09/09/22 17:00 09/11/22 05:40 Cipro 400 Mg/200 Ml IV Infused Q12H CHARLIE Infusion Lactated Ringer's 1,000 mls @ 100 mls/hr 09/10/22 08:26 09/11/22 06:15 Lr IV Not Given .Q10H CHARLIE Ketorolac Tromethamine 30 mg 09/11/22 00:00 09/11/22 06:15 Ketorolac 30 Mg/Ml Vial IVP 09/11/22 18:01 30 mg Q6HR CHARLIE Administration Lorazepam 0.5 mg 09/08/22 19:29 09/11/22 01:08 Lorazepam 2 Mg/Ml Vial IVP 0.5 mg Q1H PRN Administration Anxiety Nicotine 1 patch 09/10/22 09:00 09/10/22 09:26 Nicotine 14 Mg Patch TOP 1 patch DAILY CHARLIE Administration Oxycodone HCl 10 mg 09/09/22 07:36 09/10/22 17:47 Oxycodone 5 Mg Tablet PO 10 mg Q4HR PRN Administration PAIN OVER 5 Pantoprazole Sodium 40 mg 09/09/22 07:00 09/11/22 06:16 Pantoprazole 40 Mg Vial IVP 40 mg QDAC CHARLIE Administration Phenol/Menthol 2 sprays 09/08/22 21:18 09/08/22 21:51 Phenol Throat [place] 177 Ml MM 2 sprays Q2HR PRN Administration Throat Pain Prochlorperazine Edisylate 10 mg 09/08/22 19:29 09/09/22 09:29 Prochlorperazine 10 Mg/2 Ml Vial IVP 10 mg Q4HR PRN Administration Nausea / Vomiting Sodium Chloride 10 ml 09/08/22 17:00 09/11/22 00:33 Sodium Chloride Flush 0.9% 10 Ml Syringe IVP Not Given 0100,0900,1700 CHARLIE Sodium Chloride 10 ml 09/08/22 16:07 09/10/22 06:18 Sodium Chloride Flush 0.9% 10 Ml Syringe IVP 10 ml PRN PRN Administration NEEDED PER PROVIDER ORDERS Sodium Chloride 10 ml 09/09/22 01:00 09/11/22 00:33 Sodium Chloride Flush 0.9% 10 Ml Syringe IVP Not Given 0100,0900,1700 CHARLIE Sodium Chloride 10 ml 09/08/22 19:29 09/11/22 04:36 Sodium Chloride Flush 0.9% 10 Ml Syringe IVP 10 ml PRN PRN Administration NEEDED PER PROVIDER ORDERS Sodium Chloride 20 ml 09/09/22 21:11 09/11/22 04:36 Sodium Chloride Flush 0.9% 10 Ml Syringe IVP 20 ml PRN PRN Administration After Blood Draw Throat Lozenges 1 lozenge 09/08/22 21:18 09/10/22 11:18 Benzocaine/Menthol Lozenge MM 1 lozenge Q2HR PRN Administration Throat pain - Physical Exam Wound/Incisions: positive: Other (Midline wound with woundvac in place; Intact; No leak; Surrounding skin healthy; Colosotomy pink and edematous; small amount of air in pouch; no leakage) ENT: positive: ENT inspection nml Neck: positive: Nml inspection Respiratory: positive: No respiratory distress, Breath sounds nml Cardiovascular: positive: Regular rate & rhythm, No murmur Abdomen: positive: Non-tender, Other (Soft; non-distended; no dank-wound cellulitis) Skin: positive: Color nml Extremities: positive: Non-tender, Full ROM Neurologic/Psychiatric: positive: Oriented x3 Impression/Plan - Problem List Problem List: Assessment: 1) Fecal peritonitis due to perforated sigmoid colon - source control has been achieved with laparotomy, colectomy, colostomy, washout, drainage 2) Gm + bacteremia not confirmed on final culture analysis - On Cipro/Flagyl for peritonitis 3) Tachycardia - resolved 4) Midline open wound - wound vac in place and will change tomorrow 5) Post-op ileus - NGT is out and he is tolerating clears 6) Nicotine dependence Plan: 1) Decrease IV fluids to maintenance 2) Full liquid diet 3) Continue IV antibiotics for 5-7 days 4) I will contact the out-patient wound clinic to see how he can have a home wound vac and for them to see him in follow-up for wound vac care and colostomy care 5) Transfer to med-surg floor Denzel Tse MD General Surgery Service
[2022-09-11] MEDS: NEUTRA-PHOS 250 MG TABLET PO SCH ×2 (07:51→11:03)
[2022-09-11] MEDS: oxyCODONE 5 MG TABLET PO PRN ×3 (07:51→20:12)
[2022-09-11] MEDS: NICOTINE 14 MG PATCH TOP SCH (07:51)
[2022-09-11] MEDS: HEPARIN 5,000 UNIT/ML VIAL SUBQ SCH ×2 (07:52→22:03)
[2022-09-11] MEDS ORDERED: MAGNESIUM OXIDE 400 MG TABLET PO ONE (08:00)
[2022-09-11] MEDS: diphenhydrAMINE INJ 50 MG/ML VIAL IVP PRN (23:49)
[2022-09-12] MEDS: ACETAMINOPHEN 325 MG TABLET PO SCH ×5 (00:52→17:16)
[2022-09-12] MEDS: SODIUM CHLORIDE FLUSH 0.9% 10 ML SYRINGE IVP PRN ×8 (00:58→19:13)
[2022-09-12] MEDS: LORazepam 2 MG/ML VIAL IVP PRN (00:58)
[2022-09-12] MEDS: CIPROFLOXACIN 400 MG/200 ML 400 MG/200 ML BAG IV SCH ×2 (05:31→17:16)
[2022-09-12] MEDS: HYDROmorphone 2 MG/ML VIAL IVP PRN ×7 (06:32→21:22)
[2022-09-12] MEDS: metroNIDAZOLE 500 MG/100 ML 500 MG/100 ML BAG IV SCH ×3 (06:32→21:24)
[2022-09-12] MEDS: diphenhydrAMINE INJ 50 MG/ML VIAL IVP PRN (06:33)
[2022-09-12] MEDS: PANTOPRAZOLE 40 MG VIAL IVP SCH (06:33)
[2022-09-12] MEDS: GABAPENTIN 300 MG CAPSULE PO SCH ×3 (06:33→21:04)
[2022-09-12 08:32] LABS: BASOPHILS # (AUTO) 0.1 10^3/uL (0.0-0.1); BASOPHILS % (AUTO) 0.4 %; EOSINOPHILS # (AUTO) 0.3 10^3/uL (0.0-0.7); EOSINOPHILS % (AUTO) 1.3 %; HCT - HEMATOCRIT 31.3 % (42.0-52.0); HGB - HEMOGLOBIN 10.5 g/dL (14.0-18.0); LYMPHOCYTES # (AUTO) 1.8 10^3/uL (1.5-3.5); LYMPHOCYTES % (AUTO) 8.6 %; MEAN CORPUSCULAR HEMOGLOBIN 29.9 pg (27.0-31.0); MEAN CORPUSCULAR HGB CONC 33.5 g/dL (32.0-36.0); MEAN CORPUSCULAR VOLUME 89.2 fL (80.0-94.0); MEAN PLATELET VOLUME 8.8 fL (7.4-11.4); MONOCYTES # (AUTO) 1.3 10^3/uL (0.0-1.0); MONOCYTES % (AUTO) 6.4 %; NEUTROPHILS # (AUTO) 16.7 10^3/uL (1.5-6.6); NEUTROPHILS % (AUTO) 81.2 %; PLT - PLATELET COUNT 325 10^3/uL (130-450); RED BLOOD COUNT 3.51 10^6/uL (4.70-6.10); WHITE BLOOD COUNT 20.6 x10^3/uL (4.8-10.8)
[2022-09-12 08:38] LABS: SLIDE REVIEW? Indicated
[2022-09-12 08:39] LABS: CALCIUM 7.8 mg/dL (8.5-10.3); CREATININE 0.8 mg/dL (0.6-1.2); POTASSIUM 3.3 mmol/L (3.5-5.0)
[2022-09-12] MEDS: LACTATED RINGERS 1,000 ML IV SCH (08:45)
[2022-09-12] MEDS: NICOTINE 14 MG PATCH TOP SCH (08:46)
[2022-09-12] MEDS: oxyCODONE 5 MG TABLET PO PRN ×3 (08:46→21:03)
[2022-09-12] MEDS: SODIUM CHLORIDE FLUSH 0.9% 10 ML SYRINGE IVP SCH ×4 (08:46→17:17)
[2022-09-12] MEDS: HEPARIN 5,000 UNIT/ML VIAL SUBQ SCH ×2 (08:47→21:09)
[2022-09-12 08:48] LABS: PLATELET ESTIMATE, MANUAL NORMAL (130-450,000) (NORMAL); PLATELET MORPHOLOGY NORMAL APPEARANCE (NORMAL); RBC MORPHOLOGY (MULTIPLE) NORMAL APPEARANCE (NORMAL)
--- NOTE | 2022-09-12 09:08 | PROVIDER PROGRESS NOTE ---
Progress Note General Surgery Post-Op Progress Note Dx: Fecal peritonitis due to perforated sigmoid colon POD # 4 - Exploratory laparotomy, sigmoid colectomy, end colostomy S: Sleeping well; Ambulatory; Tolerated advancement to FLD yesterday; Ostomy now functional with stool in pouch; Pain under good control O: VSS, Pulse 94; Afeb; AAO Neck - Right IJ Lungs - Clear to auscultation bilaterally Heart - NSR; No murmurs Abdomen - Soft; non-distended; + BS; Midline wound with vac in place - no cellulitis; ostomy pink, viable, functional; Donal drain output serous and decreasing. Ext - Normal ROM Labs: 09/12/: K 3.3; Cr 0.8; Glu 120 Hct 31; Hgb 10.5; WBC 20.5k Micro: Peritoneal: E. Coli (Preliminary) VTEP: SCD/Heparin SQ BID Antibiotics: Flagyl/Cipro Day 4 Nutrition: FLD -> Regular diet today Assessment: 1) Fecal peritonitis due to perforated sigmoid colon - source control has been achieved with laparotomy, colectomy, colostomy, washout, drainage 2) Gm + bacteremia not confirmed on final culture analysis - On Cipro/Flagyl for peritonitis with E.Coli identified on preliminary analysis 3) Tachycardia - resolved 4) Midline open wound - wound vac in place and will change later today 5) Post-op ileus - resolved 6) Nicotine dependence 7) Leukocytosis without clinical evidence of infection - will monitor labs and clinical status and order CT as indicated. He is at high risk for post-op intra-abdominal abscess formation due to the presence of the fecal peritonitis. Plan: 1) Advance to general diet 2) Decrease IV rate as diet increases 3) Continue IV antibiotics for 5-7 days 4) Wound vac change today Denzel Tse MD General Surgery Service
--- NOTE | 2022-09-12 12:19 | PROVIDER PROGRESS NOTE ---
Progress Note General Surgery Negative Pressure Dressing Change Note The patient was given 2 mg IV Dilaudid for the dressing change. The previous foam was removed using saline to loosen the dressing. The length of the wound is 18-19 cm, the maximal width at the umbilicus is 5 cm and the maximal depth 1.5 cm in the center of the wound. Fascia is visible from the umbilicus to the lower aspect of the wound. All areas are clean and without purulence, infection, or necrosis. The wound was cleansed with saline. Vaseline gauze was placed over the fascia as we do not have the white foam. Black foam was then customized to the appropriate size and placed within the wound over the Vaseline gauze securing it with the transparent adhesive dressing. The dressing was connected to the vacuum device and the wound vac set at -125 low continuous suction. There were no leaks. The patient tolerated the procedure well. Next wound vac dressing change on Saturday. Either white foam (if available) or Vaseline gauze should be placed over any visible fascia. The patient has decided that when he no longer requires in-patient care that he would like to receive further care as a Swing Bed status patient. These arrangements will be made at the appropriate time and as my assignment at [facility] ends Saturday, I will sign out this patient to Dr. Dubon who will then take over his post-op surgical care. Denzel Tse MD General Surgery Service
[2022-09-12] MEDS: SACCHAROMYCES BOULARDII 250 MG CAPSULE PO SCH (17:16)
[2022-09-13] MEDS: SODIUM CHLORIDE FLUSH 0.9% 10 ML SYRINGE IVP SCH ×6 (00:18→16:48)
[2022-09-13] MEDS: HYDROmorphone 2 MG/ML VIAL IVP PRN ×10 (00:18→23:20)
[2022-09-13] MEDS: ACETAMINOPHEN 325 MG TABLET PO SCH ×7 (00:39→20:53)
[2022-09-13] MEDS: LACTATED RINGERS 1,000 ML IV SCH (04:59)
[2022-09-13] MEDS: CIPROFLOXACIN 400 MG/200 ML 400 MG/200 ML BAG IV SCH (05:00)
[2022-09-13] MEDS: metroNIDAZOLE 500 MG/100 ML 500 MG/100 ML BAG IV SCH (05:35)
[2022-09-13] MEDS: GABAPENTIN 300 MG CAPSULE PO SCH ×3 (05:35→21:01)
[2022-09-13 05:50] LABS: BASOPHILS % (AUTO) 0.4 %; EOSINOPHILS % (AUTO) 1.2 %; HCT - HEMATOCRIT 30.6 % (42.0-52.0); HGB - HEMOGLOBIN 10.4 g/dL (14.0-18.0); MEAN CORPUSCULAR HEMOGLOBIN 30.1 pg (27.0-31.0); MEAN CORPUSCULAR VOLUME 88.7 fL (80.0-94.0); MEAN PLATELET VOLUME 8.7 fL (7.4-11.4); MONOCYTES % (AUTO) 9.4 %; PLT - PLATELET COUNT 362 10^3/uL (130-450); RED BLOOD COUNT 3.45 10^6/uL (4.70-6.10); WHITE BLOOD COUNT 23.4 x10^3/uL (4.8-10.8)
[2022-09-13 05:53] LABS: ABNORMAL LYMPHS % (MANUAL) 0 %
[2022-09-13 05:57] LABS: CALCIUM 7.6 mg/dL (8.5-10.3); CREATININE 0.6 mg/dL (0.6-1.2); POTASSIUM 3.4 mmol/L (3.5-5.0)
[2022-09-13 06:16] LABS: BAND NEUTROPHILS % (MANUAL) 2 %; DIFFERENTIAL COMMENT MANUAL DIFFERENTIAL; EOSINOPHILS # (MANUAL) 0.9 10^3/uL (0-0.7); LYMPHOCYTES # (MANUAL) 2.3 10^3/uL (1.5-3.5); LYMPHOCYTES % (MANUAL) 10 %; MONOCYTES # (MANUAL) 2.8 10^3/uL (0.0-1.0); NEUTROPHILS # (MANUAL) 17.3 10^3/uL (1.5-6.6); PLATELET ESTIMATE, MANUAL NORMAL (130-450,000) (NORMAL); RBC MORPHOLOGY (MULTIPLE) NORMAL APPEARANCE (NORMAL)
[2022-09-13] MEDS: oxyCODONE 5 MG TABLET PO PRN ×4 (06:47→22:12)
[2022-09-13] MEDS: PANTOPRAZOLE 40 MG VIAL IVP SCH (06:47)
--- NOTE | 2022-09-13 08:20 | PROVIDER PROGRESS NOTE ---
Progress Note General Surgery Progress Note Hospital Day # 6: Fecal peritonitis due to perforated sigmoid colon POD # 5, Exploratory laparotomy, sigmoid colectomy, colostomy, washout, drainage ASSESSMENT: 1) S/P colectomy, colostomy for perforated sigmoid colon and feculent peritonitis. Clinically, the patient is progressing well with improved pain control, advancement of his diet, and normal VS. I am concerned about the persistent leukocytosis because he may be developing an intra-abdominal abscess PLAN: 1) Continue multimodality pain control and I have asked him to transition from IV Dilaudid to oral oxycodone for mild discomfort 2) He has brought in oral THC to improve with his appetite which is fine. I will notify pharmacy. 3) I discussed the availability of percutaneous drainage of intra-abdominal abscess at this facility with our radiology staff. The current radiologist will assess the situation and advise me on the options available in the event we identify an abscess. 4) CBC in am; CT tomorrow if the leukocytosis continues to worsen or if the pa tient develops fevers, chills, abdominal pain. 5) Awaiting sensitivity results regarding the E. Coli identified on the peritoneal culture. Cipro should cover this but we may need better coverage. <><><><><> PERTINENT INTERVAL ISSUES: None other than he has brought in home THC to improve his appetite S: Pain under good control; Bowel function via colostomy present; urinating without difficulty OBJECTIVE: I/O (24 hrs): Donal 40; UOP 2,200; Intake 1,250 VS: T 98.4, P 99; BP 146/98; RR 16; O2 sat 95% RA EXAMINATION: MENTAL STATUS: AAO; Comfortable EYES: Pupils equal, round and reactive to light, sclera anicteric, EARS, NOSE, MOUTH, THROAT: Normal hearing, Oral mucous membranes moist and without lesions; NECK: No crepitus, lymphadenopathy, or thyromegaly LUNGS: Clear to auscultation without wheezing; No use of accessory muscles to breathe CARDIOVASCULAR: Heart-NSR without murmurs; ABD: Soft, non-tender, Incision with intact and secure wound vac; LLQ ostomy functional and healthy; + BS EXTREMITIES: No clubbing, cyanosis, infections SKIN: Anicteric; No rashes, lesions, ulcerations LABS: K 3.4; Cr 0.6; Glu 147 Hct 30.6; Hgb 10.4; WBC 23.4k LINES: Right IJ CULTURES: Blood - No Growth Peritoneal - E. Coli - sensitivities pending IMAGING: None today ANTIMICROBIALS: Cipro/Flagyl Day 02/03 PAIN CONTROL: Dilaudid IV prn, Oxycodone PO prn, Ibuprofen, Acetaminophen, Gabapentin, LIZZIE Block VTEP: Chemical: Heparin, 5,000 units SQ Q 12 hrs Mechanical: MILANA Tse MD General Surgery Service
[2022-09-13] MEDS: HEPARIN 5,000 UNIT/ML VIAL SUBQ SCH ×2 (09:30→20:54)
[2022-09-13] MEDS: POTASSIUM CHLORIDE 20 MEQ TABLET PO SCH (09:31)
[2022-09-13] MEDS: NICOTINE 14 MG PATCH TOP SCH (09:31)
[2022-09-13] MEDS: FAMOTIDINE 20 MG TABLET PO SCH ×2 (09:31→20:54)
[2022-09-13] MEDS: SACCHAROMYCES BOULARDII 250 MG CAPSULE PO SCH ×2 (09:31→16:46)
--- NOTE | 2022-09-13 12:21 | PROVIDER PROGRESS NOTE ---
Progress Note I have decided to switch antibiotics in this patient as his leukocytosis is worsening. He is on Flagyl/Cipro and although the 2021 antibiogram indicates Cipro has activity against E. Coli, in many facilities it does not. Sensitivities to the peritoneal E. Coli are not yet available. I plan to stop the Cipro and Flagyl and begin Zosyn which should cover the E.Coli and the anaerobes identified on the peritoneal culture. If his leukocytosis does not improve over the next 24 hrs, CT of the abdomen will be obtained. Denzel Tse MD General Surgery Service
[2022-09-13] MEDS: PIPERACILLIN/TAZOBACTAM 3.375 GM in SODIUM CHLORIDE 0.9% MINIBAG 100 ML IV SCH ×2 (12:53→19:47)
[2022-09-13] MEDS: IBUPROFEN 400 MG TABLET PO SCH ×2 (13:11→21:01)
[2022-09-14] MEDS: LACTATED RINGERS 1,000 ML IV SCH (01:28)
[2022-09-14] MEDS: ACETAMINOPHEN 325 MG TABLET PO SCH ×6 (01:29→21:13)
[2022-09-14] MEDS: PIPERACILLIN/TAZOBACTAM 3.375 GM in SODIUM CHLORIDE 0.9% MINIBAG 100 ML IV SCH ×4 (01:29→19:22)
[2022-09-14] MEDS: HYDROmorphone 2 MG/ML VIAL IVP PRN ×11 (01:30→23:12)
[2022-09-14] MEDS: SODIUM CHLORIDE FLUSH 0.9% 10 ML SYRINGE IVP SCH ×6 (01:31→17:33)
[2022-09-14] MEDS: LORazepam 2 MG/ML VIAL IVP PRN ×2 (02:35→23:57)
[2022-09-14] MEDS: IBUPROFEN 400 MG TABLET PO SCH ×3 (05:12→21:14)
[2022-09-14] MEDS: GABAPENTIN 300 MG CAPSULE PO SCH ×3 (05:12→21:14)
[2022-09-14] MEDS: oxyCODONE 5 MG TABLET PO PRN ×5 (05:12→23:46)
[2022-09-14] MEDS: PANTOPRAZOLE 40 MG VIAL IVP SCH (05:26)
[2022-09-14 06:03] LABS: BASOPHILS % (AUTO) 0.4 %; EOSINOPHILS % (AUTO) 2.3 %; HCT - HEMATOCRIT 30.1 % (42.0-52.0); LYMPHOCYTES % (AUTO) 16.6 %; MEAN CORPUSCULAR HEMOGLOBIN 29.9 pg (27.0-31.0); MEAN CORPUSCULAR HGB CONC 33.2 g/dL (32.0-36.0); MEAN CORPUSCULAR VOLUME 90.1 fL (80.0-94.0); MEAN PLATELET VOLUME 8.8 fL (7.4-11.4); MONOCYTES % (AUTO) 9.1 %; NEUTROPHILS % (AUTO) 64.9 %; PLT - PLATELET COUNT 450 10^3/uL (130-450); RED BLOOD COUNT 3.34 10^6/uL (4.70-6.10); RED CELL DISTRIBUTION WIDTH 13.3 % (12.0-15.0); WHITE BLOOD COUNT 20.4 x10^3/uL (4.8-10.8)
[2022-09-14 06:08] LABS: ABNORMAL LYMPHS % (MANUAL) 0 %
[2022-09-14 06:29] LABS: BAND NEUTROPHILS % (MANUAL) 6 %; DIFFERENTIAL COMMENT MANUAL DIFFERENTIAL; EOSINOPHILS # (MANUAL) 0.8 10^3/uL (0-0.7); LYMPHOCYTES # (MANUAL) 3.1 10^3/uL (1.5-3.5); LYMPHOCYTES % (MANUAL) 15 %; MONOCYTES # (MANUAL) 0.8 10^3/uL (0.0-1.0); NEUTROPHILS # (MANUAL) 15.7 10^3/uL (1.5-6.6); PLATELET ESTIMATE, MANUAL NORMAL (130-450,000) (NORMAL); RBC MORPHOLOGY (MULTIPLE) NORMAL APPEARANCE (NORMAL)
--- NOTE | 2022-09-14 07:23 | PROVIDER PROGRESS NOTE ---
Progress Note General Surgery Progress Note Hospital Day # 7: Fecal peritonitis due to perforated sigmoid colon POD # 6, Exploratory laparotomy, sigmoid colectomy, colostomy, washout, drainage ASSESSMENT: 1) S/P colectomy, colostomy for perforated sigmoid colon and feculent peritonitis. Clinically, the patient is progressing well although he continues to ask for stronger narcotics for his incision. 2) Leukocytosis - persists albeit a little lower. Still worried about an intra-abdominal abscess PLAN: 1) Continue multimodality pain control 2) Wound Vac Change today; Remove Donal today 3) CT abdomen and pelvis to search for possible intra-abdominal abscess. If p resent, it will require IR drainage and prolonged IV antibiotics 4) Transfer to Swing bed status soon <><><><><> PERTINENT INTERVAL ISSUES: None S: Pain under good control; Bowel function via colostomy present; urinating without difficulty OBJECTIVE: I/O (24 hrs): Donal 80; UOP 4,100; Intake 3,469 VS: T 99.3, P 95; BP 146/93; RR 20; O2 sat 96% RA EXAMINATION: MENTAL STATUS: AAO; Comfortable EYES: Pupils equal, round and reactive to light, sclera anicteric, EARS, NOSE, MOUTH, THROAT: Normal hearing, Oral mucous membranes moist and without lesions; NECK: No crepitus, lymphadenopathy, or thyromegaly LUNGS: Clear to auscultation without wheezing; No use of accessory muscles to breathe CARDIOVASCULAR: Heart-NSR without murmurs; ABD: Soft, non-tender, Incision with intact and secure wound vac; LLQ ostomy functional and healthy; + BS; No palpable abdominal tenderness EXTREMITIES: No clubbing, cyanosis, infections SKIN: Anicteric; No rashes, lesions, ulcerations LABS: Hct 30.1; Hgb 10.0; WBC 20.4k LINES: Right IJ CULTURES: Blood - No Growth Peritoneal - E. Coli - sensitive to Zosyn, Ceftriaxone, Cipro (There is a 40% resistance rate of E.Coli to Cipro in the [place]) IMAGING: None today ANTIMICROBIALS: Day 6/7 - Now on IV Zosyn (Cipro/Flagyl for 4 days; Ceftriaxaone/Flagyl for 1 day) PAIN CONTROL: Dilaudid IV prn, Oxycodone PO prn, Ibuprofen, Acetaminophen, Gabapentin, LIZZIE Block VTEP: Chemical: Heparin, 5,000 units SQ Q 12 hrs Mechanical: SCD Denzel Tse MD General Surgery Service
[2022-09-14] MEDS ORDERED: iohexoL-300 100 ML VIAL ONE (07:42)
[2022-09-14] MEDS ORDERED: DIATRIZOATE MEGLU/DIATRIZO SOD 30 ML BOTTLE PO ONE ×2 (08:05→10:51)
[2022-09-14] MEDS: SACCHAROMYCES BOULARDII 250 MG CAPSULE PO SCH ×2 (09:58→17:33)
[2022-09-14] MEDS: POTASSIUM CHLORIDE 20 MEQ TABLET PO SCH ×3 (09:58→23:11)
[2022-09-14] MEDS: NICOTINE 14 MG PATCH TOP SCH (09:58)
[2022-09-14] MEDS: FAMOTIDINE 20 MG TABLET PO SCH ×2 (09:58→20:49)
[2022-09-14] MEDS: HEPARIN 5,000 UNIT/ML VIAL SUBQ SCH ×2 (09:59→20:50)
--- NOTE | 2022-09-14 10:36 | CT Report ---
PROCEDURE: ABDOMEN/PELVIS W INDICATIONS: ? Intra-abdominal abscess CONTRAST: 100mL Omni 300 TECHNIQUE: After the administration of IV and oral contrast, 5 mm thick sections acquired from the diaphragms to the symphysis. 5 mm thick coronal and sagittal reformats were acquired. For radiation dose reducti on, the following was used: automated exposure control, adjustment of mA and/or kV according to lizbeth ent size. COMPARISON: 09/08/2022 FINDINGS: Image quality: Excellent. ABDOMEN: Lung bases: Development of small bilateral pleural effusions, left greater than right and associated compressive consolidations at both lung bases, likely atelectasis. Solid organs: Liver and spleen are normal in size and enhancement. Gallbladder is partially decompr essed. Biliary system is non dilated. Pancreas enhances normally. No adrenal nodules. Kidneys dem onstrate normal size and enhancement, without hydronephrosis. Peritoneum and bowel: Interval surgical intervention with creation of the left lower quadrant colost gil and Tangela pouch. Resolution of pneumoperitoneum and nearly resolved pneumoretroperitoneum. No significant free fluid in the peritoneum or retroperitoneum. There is a very small fluid collection i n the right lower quadrant measuring 3.5 x 1.7 cm. There is a surgical placed drain in the pelvis ent ering from the right with the tip extending to the left lower quadrant. Mild generalized inflammatory changes throughout the peritoneal cavity small bowel loops are at the upper limits of normal to mini sofiya dilated in caliber and several contain air-fluid levels. No transition point. Normal to slightl y increased amount of solid colonic stool. Nodes and vessels: No retroperitoneal or mesenteric adenopathy by size criteria. Aorta and inferior vena cava are normal in size. Miscellaneous: No ventral hernias. PELVIS: Genitourinary: Bladder wall thickness is normal. Single air focus in the urinary bladder likely seco ndary to prior instrumentation. Normal size prostate gland. Miscellaneous: No inguinal hernias or adenopathy. Bones: No suspicious bony lesions. No vertebral body compression fractures. IMPRESSION: 1. Tiny right lower quadrant fluid collection too small for percutaneous drain placement may be contr ibuting to postoperative ileus. 2. There are mildly prominent fluid and air containing small bowel loops without transition point. In creased quantity of solid stool present to contribute to postop ileus. 3. Left lower quadrant colostomy. 4. Development of small bilateral pleural effusions and increasing bibasilar atelectatic changes. Reviewed by: Eli Robison MD on 09/14/2022 10:35 AM PST Approved by: Eli Robison MD on 09/14/2022 10:35 AM PST Station ID: [id number]
[2022-09-14] MEDS ORDERED: iohexoL-300 100 ML VIAL IVP ONE (10:50)
[2022-09-14] MEDS: MULTIVITAMIN W/MINERALS TABLET PO SCH (10:56)
--- NOTE | 2022-09-14 12:44 | PROVIDER PROGRESS NOTE ---
Progress Note General Surgery Progress Note CT scan of the abd/pelvis identifies a 3.5 x 1.7 fluid collection in the RLQ. There is generalized inflammatory changes throughout the abdominal cavity but no clear evidence of an intra-abdominal abscess. The small fluid collection described above is too small for percutaneous intervention. There are small bilateral pleural effusions. The midline wound vac is changed today. The black foam and Vaseline gauze over the lower fascia is removed. All aspects of the wound appear healthy and the fascial exposure continues to decrease in size with progression of wound closure. The wound is dressed with a small Vaseline strip on the exposed lower fascia and black foam tailored to the appropriate size to the remainder of the wound. Transparent adhesive is used to secure the foam and the wound dressing is connected to 125 mm Hg continuous negative pressure. No leaks are identifie d. The right Donal drain was also removed uneventfully. Today he will ambulate in the hallway. I will saline lock the right IJ line for antibiotic use and offer a daily dose of furosemide for 3 days to assist in elimination of his bilateral pleural effusions. Oral potassium supplementation will continue. He may be able to be discharged tomorrow. We discovered that he is not a candidate for Swing bed placement and he and his family have been informed of this. He has also received ostomy training and he seems comfortable with this aspect of his outpatient care. He continues to ask for IV Dilaudid. I explained to Prudencio that he has other options for pain control that he should use and that the use of IV Dilaudid will be limited to severe discomfort. Denzel Tse MD General Surgery Service
[2022-09-14] MEDS: SODIUM CHLORIDE FLUSH 0.9% 10 ML SYRINGE IVP PRN ×4 (13:11→23:11)
[2022-09-14] MEDS: FUROSEMIDE 20 MG TABLET PO SCH (13:11)
[2022-09-15] MEDS: PIPERACILLIN/TAZOBACTAM 3.375 GM in SODIUM CHLORIDE 0.9% MINIBAG 100 ML IV SCH ×4 (01:10→19:01)
[2022-09-15] MEDS: HYDROmorphone 2 MG/ML VIAL IVP PRN ×6 (01:11→20:14)
[2022-09-15] MEDS: SODIUM CHLORIDE FLUSH 0.9% 10 ML SYRINGE IVP SCH ×7 (01:12→17:33)
[2022-09-15] MEDS: ACETAMINOPHEN 325 MG TABLET PO SCH ×6 (01:42→21:22)
[2022-09-15] MEDS: oxyCODONE 5 MG TABLET PO PRN ×5 (05:41→22:41)
[2022-09-15] MEDS: GABAPENTIN 300 MG CAPSULE PO SCH ×3 (05:41→21:21)
[2022-09-15] MEDS: IBUPROFEN 400 MG TABLET PO SCH ×3 (05:41→21:21)
[2022-09-15] MEDS: POTASSIUM CHLORIDE 20 MEQ TABLET PO SCH ×3 (05:42→21:21)
[2022-09-15] MEDS: PANTOPRAZOLE 40 MG VIAL IVP SCH (05:42)
[2022-09-15 06:10] LABS: BASOPHILS # (AUTO) 0.1 10^3/uL (0.0-0.1); BASOPHILS % (AUTO) 0.3 %; EOSINOPHILS # (AUTO) 0.4 10^3/uL (0.0-0.7); EOSINOPHILS % (AUTO) 2.4 %; HCT - HEMATOCRIT 30.2 % (42.0-52.0); HGB - HEMOGLOBIN 10.1 g/dL (14.0-18.0); LYMPHOCYTES # (AUTO) 3.5 10^3/uL (1.5-3.5); MEAN CORPUSCULAR HEMOGLOBIN 30.1 pg (27.0-31.0); MEAN CORPUSCULAR HGB CONC 33.4 g/dL (32.0-36.0); MEAN CORPUSCULAR VOLUME 90.1 fL (80.0-94.0); MEAN PLATELET VOLUME 8.6 fL (7.4-11.4); MONOCYTES # (AUTO) 1.7 10^3/uL (0.0-1.0); MONOCYTES % (AUTO) 8.9 %; NEUTROPHILS # (AUTO) 11.7 10^3/uL (1.5-6.6); NEUTROPHILS % (AUTO) 62.9 %; PLT - PLATELET COUNT 555 10^3/uL (130-450); RED BLOOD COUNT 3.35 10^6/uL (4.70-6.10); RED CELL DISTRIBUTION WIDTH 13.6 % (12.0-15.0); WHITE BLOOD COUNT 18.6 x10^3/uL (4.8-10.8)
[2022-09-15 06:18] LABS: CALCIUM 7.9 mg/dL (8.5-10.3); CREATININE 0.7 mg/dL (0.6-1.2); POTASSIUM 3.9 mmol/L (3.5-5.0)
--- NOTE | 2022-09-15 07:29 | DISCHARGE SUMMARY ---
"<Félix Dubon - Last Filed: 09/20/22 21:03> Discharge Summary Discharge Disposition: 01 Home, Self Care - DIAGNOSES Discharge Diagnoses with Status of Each Condition: hypokalemia- resolved - CONSULTS | PROCEDURES Procedures: delayed primary closure of midline wound 09/19/22 Dr. Dubon attempted percutaneous drainage of RLQ fluid collection 09/19/22 - HOSPITAL COURSE Hospital Course: The patient has continued to struggle with pain control and displays drug seeking behaviors. It has been very difficult to wean his IV pain medication, despite optimizing his non narcotic oral medications and increasing his oral narcotic meds. His wound vac was removed, and wound was closed primarily on 08/31 10/21. The patient's leukocytosis worsened on zosyn, but has improved after transition to rocephin and flagyl. I would like him to continue on this regimen or oral equivalent for five days or until his leukocytosis has resolved. Repeat CT on 09/18 demonstrated a slight increase in size of small RLQ fluid collection; an attempt at perc drainage by IR on 09/19 was not successful. Amlodipine has been increased to 5mg PO, and plan is to discharge him on this medication. Pathology is benign and consistent with perforated diverticulitis. I recommend f/u with general surgery in 1-2 weeks and his PCP within one week. As we continue to work to get the patient off IV pain medication and to ensure t hat he has his oral antibiotic on discharge, Dr. Yang Cabezas will be assuming care fot the patient tomorrow. - ALLERGIES Allergies/Adverse Reactions: Allergies Allergy/AdvReac Type Severity Reaction Status Date / Time No Known Drug Allergies Allergy Verified 09/08/22 10:27 - MEDICATIONS Home Medications: Ambulatory Orders Medication Instructions Recorded Confirmed Cefdinir 300 mg PO BID #10 cap 09/20/22 amLODIPine [Norvasc] 5 mg PO DAILY 30 Days #30 tablet 09/20/22 metroNIDAZOLE [Flagyl] 500 mg PO BID 5 Days #10 tablet 09/20/22 oxyCODONE [Roxicodone] 10 - 15 mg PO Q4H PRN #31 tablet 09/20/22 polyethylene glycoL 3350 [Miralax] 17 gm PO DAILY #238 gm 09/20/22 - LABS Result Diagrams: 09/20/22 07:51 09/19/22 06:45 <Mark Tse - Last Filed: 09/28/22 03:54> Discharge Summary Admit Date: 09/08/22 Discharging Provider: Denzel Tse MD Code Status: Attempt Resuscitation - DIAGNOSES Admission Diagnoses: Fecal peritonitis due to perforated sigmoid colon Hypertension Discharge Diagnoses with Status of Each Condition: Fecal peritonitis due to perforated sigmoid colon - resolved Hypertension - Started on Amlodipine - HPI History of Present Illness: 41 year old male with sudden onset of bilateral lower abdominal pain this morning described as sharp, non-radiating, constant, and worsened by movement. Anorexic today. Denies fevers or chills. Came to ED earlier today and while here the pain worsened and a CT was performed that identified perforated sigmoid diverticulitis with extracolonic stool and air. The patient had an episode of mild abdominal pain yesterday but was able to eat and was otherwise normal. He denies prior episodes of abdominal pain prior to yesterday. He has only had liquids today. He had a normal BM yesterday but none today. - CONSULTS | PROCEDURES Consultations: Wound care; Nutrition Procedures: Exploratory laparotomy, sigmoid colectomy, colosotomy, washout, drainage Negative pressure dressing midline wound Right IJ - HOSPITAL COURSE Hospital Course: The patient's post op course was unremarkable. He remained hemodynamically stable throughout his early and late post-op course. His NGT was removed on POD # 2 and his diet advanced from clears to regular. His ostomy began to function on POD # 4 and his midline wound, which was initially treated with wet to dry dressings was converted to a wound vac on POD # 3 and has been changed M,W,F. He has received 8 days of IV antibiotics (09/08/22 - 09/16/22). Initially he was on Ceftriaxone/Flagyl for 36 hours but a preliminary blood culture identified a Gm + organism in his bloodstream. I switched him from Ceftriaxone to Cipro for better coverage of the suspected blood stream infection and using the hospital's antibiogram, decided to stay with Cipro for the E. Coli which was discovered in his peritoneal cultures. The final blood cultures were negative but, while on Cipro, his leukocytosis worsened. As there is a significant percentage of E. Coli resistance to Cipro in this country (40%), I switched him from Cipro/Flagyl to Zosyn which should provide superior coverage. Simultaneously, I ordered a CT scan of the abdomen to make certain he was not harboring an intra-abdominal abscess. The CT scan identified a tiny fluid collection in the right pelvis which was too small to offer IR drainage and over the next 48 hrs on the Zosyn his leukocytosis decreased from 23k to 18k. At no time was he having intra-abdominal pain, fevers, or diarrhea. As of 09/15/22, he was tolerating a diet, his midline wound was healing using the wound vac, his colostomy was viable and functional and our wound care nursing staff instructed him in the out-patient management of the stoma. His pain was not well managed and I added Tramadol, discontinued the IV Dilaudid, and asked that an abdominal binder be placed. I also requested assistance from PT to assist in hallway ambulation because he requires extra encouragement. I was notified later in the day that incisional (not abdominal) pain was not im proved and that he refused to walk or use the binder. I decided to resume the IV Dilaudid as needed for severe pain. Tomorrow a decision can be made whether or not the wound vac is causing his discomfort and I will discuss this with Dr. Pierce at sign out. In addition, he was found to have diastolic hypertension and was started on Amlodipine, 2.5 MG PO daily. He will be continued on out-patient Auqmentin for a total of 14 days of antibiotics once his central line has been removed. My plan is for him to be discharged to home tomorrow but I will leave this decision for Dr. Pierce (Please see her addendum for details regarding hospital course beyond this date). He has appointments to see the surgeons in our out- patient surgery clinic and our wound care nurses as part of the follow-up plans. The pathology report identified perforated sigmoid diverticulitis. Denzel Tse MD [facility] Surgery Service - PHYSICAL EXAM AT DISCHARGE General Appearance: positive: No acute distress, Alert Eyes Bilateral: positive: Normal inspection, PERRL ENT: positive: ENT inspection nml, Pharynx nml Neck: positive: Nml inspection, Thyroid nml Respiratory: positive: Chest non-tender, No respiratory distress Cardiovascular: positive: Regular rate & rhythm, No murmur Peripheral Pulses: positive: 2+ Abdomen: positive: Non-tender, Nml bowel sounds, No distention, Other (Wound vac in place; LLQ ostomy pink and functional) Skin: positive: Color nml, Warm Extremities: positive: Non-tender, Full ROM - LABS Result Diagrams: 09/21/22 05:21 09/19/22 06:45 - DIAGNOSTIC IMAGING Diagnostic Imaging Results: See rad report - SEPSIS Current Stage of Sepsis: Sepsis Possible source of Sepsis: GI tract/intra-abdominal Sepsis Criteria: Recorded Heart Rate greater than 90 bpm, Recorded Respiratory Rate greater than 20, WBC count greater than 12,000 or less than 4000 - QUALITY (Female Hip Fx Only) Was patient sent home on osteoporosis medication?: Yes - FOLLOW UP Follow Up: General surgery clinic in 7-10 days Wound care clinic M,W,F for vac change - TIME SPENT Time Spent in Discharge (Minutes): 30"
--- NOTE | 2022-09-15 07:52 | PROVIDER PROGRESS NOTE ---
Progress Note General Surgery Progress Note Hospital Day # 8: Fecal peritonitis due to perforated sigmoid colon POD # 7, Exploratory laparotomy, sigmoid colectomy, colostomy, washout, drainage ASSESSMENT: 1) S/P colectomy, colostomy for perforated sigmoid colon and feculent peritonitis. No clinical or image findings for persistent intra-abdominal infection. Given the small fluid collection in the right pelvis and his favorable response to the use of Zosyn, I recommend that he continue IV Zosyn wh ile still an in-patient and switch to out-patient oral Augmentin for a total of 14 days of antibiotics. 2) Leukocytosis - Still elevated but improving with Zosyn 3) Midline wound - Wound vac management 4) Colostomy - No issues 5) Hypertension - His diastolic BP has been above 90 since admission. He was not on antihypertensive medications pre-op. I discussed this with the Medical Hospitalist and have been advised to start Amlodipine, 2.5 mg PO Q D. 6) Pain tolerance is low and we have yet to achieve satisfactory oral management 7) Hypokalemia - reesolved PLAN: 1) Continue multimodality pain control; Stop IV Dilaudid and add Tramadol 50 mg PO Q 4h prn 2) Abdominal binder 3) Amlodipine, 2.5 mg PO Q day; VS Q 4 hr to monitor response 4) PT evaluation to assist in mobility and ambulation 5) Continue IV Zosyn while still an in-patient 6) Continue TID KCl supplementation and Multivits 7) Discharge today unlikely given 1-4. Will discuss with Dr Dubon tomorrow morning as my assignment ends at 0700 tomorrow <><><><><> PERTINENT INTERVAL ISSUES: None S: Still with need for IV Dilaudid for pain control; Bowel function via colostomy present; Did not ambulate yesterday OBJECTIVE: I/O (24 hrs): UOP 4,250 VS: T 99.0, P 101; BP 148/97; RR 18; O2 sat 95% RA EXAMINATION: MENTAL STATUS: AAO; Comfortable EYES: Pupils equal, round and reactive to light, sclera anicteric, EARS, NOSE, MOUTH, THROAT: Normal hearing, Oral mucous membranes moist and without lesions; NECK: No crepitus, lymphadenopathy, or thyromegaly LUNGS: Clear to auscultation without wheezing; No use of accessory muscles to breathe CARDIOVASCULAR: Heart-NSR without murmurs; ABD: Soft, non-tender, Incision with intact and secure wound vac; LLQ ostomy functional and healthy; + BS; No palpable abdominal tenderness EXTREMITIES: No clubbing, cyanosis, infections SKIN: Anicteric; No rashes, lesions, ulcerations LABS: K 3.9; Cr 0.7; WBC 18.6k today (decreased from 23k two days ago) LINES: Right IJ CULTURES: Blood - No Growth Peritoneal - E. Coli - sensitive to Zosyn, Ceftriaxone, Cipro IMAGING: None today ANTIMICROBIALS: Day 04/05 - Now on day 2 IV Zosyn (Cipro/Flagyl for 4 days; Ceftriaxaone/Flagyl for 1 day) PAIN CONTROL: Dilaudid IV prn, Oxycodone PO prn, Ibuprofen, Acetaminophen, Gabapentin, LIZZIE Block VTEP: Chemical: Heparin, 5,000 units SQ Q 12 hrs Mechanical: MILANA Tse MD General Surgery Service
[2022-09-15] MEDS ORDERED: NICOTINE 21 MG PATCH TOP SCH (09:00)
[2022-09-15] MEDS: SACCHAROMYCES BOULARDII 250 MG CAPSULE PO SCH ×2 (09:33→17:33)
[2022-09-15] MEDS: MULTIVITAMIN W/MINERALS TABLET PO SCH (09:33)
[2022-09-15] MEDS: FUROSEMIDE 20 MG TABLET PO SCH (09:33)
[2022-09-15] MEDS: FAMOTIDINE 20 MG TABLET PO SCH ×2 (09:34→21:21)
[2022-09-15] MEDS: traMADol 50 MG TABLET PO PRN ×2 (09:34→13:42)
[2022-09-15] MEDS: amLODIPine 5 MG TABLET PO SCH (09:35)
[2022-09-15] MEDS: HEPARIN 5,000 UNIT/ML VIAL SUBQ SCH ×2 (09:38→21:22)
[2022-09-15] MEDS: LORazepam 2 MG/ML VIAL IVP PRN (13:48)
[2022-09-15] MEDS: SODIUM CHLORIDE FLUSH 0.9% 10 ML SYRINGE IVP PRN (14:44)
[2022-09-15] MEDS: NICOTINE 14 MG PATCH TOP SCH (16:37)
[2022-09-16] MEDS: PIPERACILLIN/TAZOBACTAM 3.375 GM in SODIUM CHLORIDE 0.9% MINIBAG 100 ML IV SCH ×4 (00:11→19:00)
[2022-09-16] MEDS: HYDROmorphone 2 MG/ML VIAL IVP PRN ×6 (00:11→22:47)
[2022-09-16] MEDS: SODIUM CHLORIDE FLUSH 0.9% 10 ML SYRINGE IVP SCH ×6 (00:16→17:00)
[2022-09-16] MEDS: LORazepam 2 MG/ML VIAL IVP PRN ×3 (01:16→07:45)
[2022-09-16] MEDS: ACETAMINOPHEN 325 MG TABLET PO SCH ×5 (01:45→19:00)
[2022-09-16] MEDS: GABAPENTIN 300 MG CAPSULE PO SCH ×3 (05:19→21:14)
[2022-09-16] MEDS: oxyCODONE 5 MG TABLET PO PRN ×5 (05:19→21:15)
[2022-09-16] MEDS: POTASSIUM CHLORIDE 20 MEQ TABLET PO SCH ×3 (05:19→21:14)
[2022-09-16] MEDS: IBUPROFEN 400 MG TABLET PO SCH ×3 (05:19→16:59)
[2022-09-16] MEDS: PANTOPRAZOLE 40 MG VIAL IVP SCH (05:21)
[2022-09-16] MEDS: FUROSEMIDE 20 MG TABLET PO SCH (08:29)
[2022-09-16] MEDS: amLODIPine 5 MG TABLET PO SCH (08:29)
[2022-09-16] MEDS: MULTIVITAMIN W/MINERALS TABLET PO SCH (08:29)
[2022-09-16] MEDS: SACCHAROMYCES BOULARDII 250 MG CAPSULE PO SCH ×2 (08:29→17:00)
[2022-09-16] MEDS: FAMOTIDINE 20 MG TABLET PO SCH ×2 (08:29→21:15)
[2022-09-16] MEDS: HEPARIN 5,000 UNIT/ML VIAL SUBQ SCH ×2 (08:38→21:18)
[2022-09-16] MEDS: SODIUM CHLORIDE FLUSH 0.9% 10 ML SYRINGE IVP PRN ×4 (08:40→13:10)
[2022-09-16] MEDS: NICOTINE 14 MG PATCH TOP SCH (08:44)
[2022-09-16 08:56] LABS: BASOPHILS % (AUTO) 0.4 %; EOSINOPHILS % (AUTO) 1.9 %; HGB - HEMOGLOBIN 10.8 g/dL (14.0-18.0); LYMPHOCYTES % (AUTO) 16.2 %; MEAN CORPUSCULAR HEMOGLOBIN 30.7 pg (27.0-31.0); MEAN CORPUSCULAR HGB CONC 33.8 g/dL (32.0-36.0); MEAN CORPUSCULAR VOLUME 90.9 fL (80.0-94.0); MEAN PLATELET VOLUME 8.4 fL (7.4-11.4); MONOCYTES % (AUTO) 8.5 %; NEUTROPHILS % (AUTO) 67.3 %; PLT - PLATELET COUNT 726 10^3/uL (130-450); RED BLOOD COUNT 3.52 10^6/uL (4.70-6.10); RED CELL DISTRIBUTION WIDTH 14.1 % (12.0-15.0); WHITE BLOOD COUNT 19.5 x10^3/uL (4.8-10.8)
[2022-09-16 08:59] LABS: ABNORMAL LYMPHS % (MANUAL) 0 %
[2022-09-16 09:24] LABS: BAND NEUTROPHILS % (MANUAL) 4 %; DIFFERENTIAL COMMENT MANUAL DIFFERENTIAL; EOSINOPHILS # (MANUAL) 0.2 10^3/uL (0-0.7); LYMPHOCYTES # (MANUAL) 4.5 10^3/uL (1.5-3.5); LYMPHOCYTES % (MANUAL) 23 %; METAMYELOCYTES % (MANUAL) 1 %; MONOCYTES # (MANUAL) 1.2 10^3/uL (0.0-1.0); MYELOCYTES % (MANUAL) 1 %; NEUTROPHILS # (MANUAL) 13.1 10^3/uL (1.5-6.6); PROMYELOCYTES % (MANUAL) 1 %
[2022-09-16 09:25] LABS: PLATELET ESTIMATE, MANUAL INCREASED (>450,000) (NORMAL)
--- NOTE | 2022-09-16 09:38 | XRAY Report ---
PROCEDURE: Chest 2 View X-Ray INDICATIONS: B effusions on recent CT, f/u, ?PNA TECHNIQUE: 2 views of the chest were acquired. COMPARISON: 09/09/2022 FINDINGS: Surgical changes and devices: Right subclavian central venous catheter tip is in SVC/right atrium. Lungs and pleura: Trace bilateral pleural effusion is seen with blunting of bilateral costophrenic an gles. No significant. Platelike atelectasis versus small infiltrate in right infrahilar region is see n. Left basilar atelectasis is noted. Mediastinum: Mediastinal contours are normal. Heart size is normal. Bones and chest wall: No suspicious bony abnormalities. Soft tissues appear unremarkable. IMPRESSION: Small infiltrate/atelectasis in right infrahilar region and left basilar atelectasis. Trace bilateral pleural effusions. No gross pneumothorax. Reviewed by: Ke Tesfaye MD on 09/16/2022 9:37 AM PST Approved by: Ke Tesfaye MD on 09/16/2022 9:37 AM PST Station ID: [id number]
--- NOTE | 2022-09-16 10:19 | PROVIDER PROGRESS NOTE ---
Progress Note Progress Note General Surgery Progress Note Hospital Day # 9: Fecal peritonitis due to perforated sigmoid colon POD # 8, Exploratory laparotomy, sigmoid colectomy, colostomy, washout, drainage ASSESSMENT: 1) S/P colectomy, colostomy for perforated sigmoid colon and feculent peritonitis. No clinical or image findings for persistent intra-abdominal infection. Very small fluid collection in the right pelvis. Continue IV Zosyn while still an in-patient and switch to out-patient oral Augmentin for a total of 14 days of antibiotics. 2) Leukocytosis - Stable, still elevated. CXR does not show any infiltrate. UA, BCx pending. Will place PIV and remove CVL. 3) Midline wound - Wound vac management, changing MWF, next change tomorrow. 4) Colostomy - No issues, pink working well. 5) Hypertension - His diastolic BP has been above 90 since admission. He was not on antihypertensive medications pre-op. 6) Pain tolerance is low and we have yet to achieve satisfactory oral management 7) Hypokalemia - resolved PLAN: 1) Continue multimodality pain control; increased PO ibuprofen and oxycodone, decreased IV dilaudid. Encouraged ambulation. If unable to make progress on pain control, may consider palliative care (pain management) consult. I have significant concern for patient's drug seeking, despite having a real source of pain. He is manipulative with nurses and myself and openly states he plans to take "as much pain medication as I need" on discharge. I have strongly discouraged taking pain medication differently than prescribed and will not write additional prescriptions for pain medication on discharge. I discussed goals of pain management with the patient today, most of which he is achieving. He is able to eat and sleep and seems comfortable when distracted with conversation. I can hear him having a normal conversation in the room, but he begins to moan when the door is opened. He guards during abdominal exam, but not with pressure when distracted in conversation. 2) Abdominal binder 3) Amlodipine increased to 5 mg PO Q day; first increased dose tomorrow AM; VS Q 4 hr to monitor response 4) PT evaluation to assist in mobility and ambulation. Encouraged IS and/or deep breathing exercises hourly. 5) Continue IV Zosyn while still an in-patient 6) Continue TID KCl supplementation and Multivits 7) Discharge when pain controlled with PO meds. <><><><><> PERTINENT INTERVAL ISSUES: None S: Still with need for IV Dilaudid for pain control. RN reports patient is manipulative with regards to pain medication. Patient asking for "7mg dilaudid" and states pain control was better yesterday than today. Tolerating regular diet, no n/v. Bowel function via colostomy present. He ambulated in the room this AM as required to receive IV pain meds. States he is having trouble feeling motivated. Refusing IS and abdominal binder. OBJECTIVE: I/O (24 hrs): UOP 4,775mL VS: T 37.4 C, P 95; BP 188/99; RR 18; O2 sat 99% RA EXAMINATION: MENTAL STATUS: AAO; Comfortable when distracted, moaning on my initial entry to room EYES: Pupils equal, round and reactive to light, sclera anicteric, EARS, NOSE, MOUTH, THROAT: Normal hearing, Oral mucous membranes moist and without lesions; NECK: No crepitus, lymphadenopathy, or thyromegaly LUNGS: Clear to auscultation without wheezing; decreased breath sounds in B bases. No use of accessory muscles to breathe. Can pull 2500mL on IS. CARDIOVASCULAR: Heart-NSR without murmurs; ABD: Soft, incisional ttp on exam, though much less so when distracted by conversation. Incision with intact and secure wound vac; LLQ ostomy functional and healthy. EXTREMITIES: No clubbing, cyanosis, infections SKIN: Anicteric; No rashes, lesions, ulcerations LABS: WBC 19.5k today (decreased from 23k two days ago) LINES: Right IJ CULTURES: Repeat Cx pending Blood (presentation) - No Growth Peritoneal - E. Coli - sensitive to Zosyn, Ceftriaxone, Cipro IMAGING: CXR this AM shows small B effusions, no significant infiltrate on my review of images. ANTIMICROBIALS: Day 8/14 - Now on day 3 IV Zosyn (Cipro/Flagyl for 4 days; Ceftriaxaone/Flagyl for 1 day) PAIN CONTROL: Dilaudid IV prn, Oxycodone PO prn, Ibuprofen, Acetaminophen, Gabapentin, LIZZIE Block VTEP: Chemical: Heparin, 5,000 units SQ Q 12 hrs Mechanical: MILANA Dubon MD General Surgery Service
[2022-09-16] MEDS ORDERED: HYDROmorphone 0.5 MG/0.5 ML SYRINGE IVP ONE (11:00)
[2022-09-16 14:38] LABS: BILIRUBIN,URINE NEGATIVE (NEGATIVE); GLUCOSE, URINE (UA) NEGATIVE (NEGATIVE); KETONES,URINE (UA) NEGATIVE (NEGATIVE); LEUKOCYTE ESTERASE, URINE NEGATIVE (NEGATIVE); NITRITE,URINE NEGATIVE (NEGATIVE); OCCULT BLOOD,URINE NEGATIVE (NEGATIVE); PH,URINE 7.5 PH (5.0-7.5); PROTEIN,URINE NEGATIVE (NEGATIVE); UROBILINOGEN,URINE 0.2 (NORMAL) E.U./dL (NORMAL)
[2022-09-16 14:44] LABS: BACTERIA,URINE None Seen /HPF (None Seen); CLARITY,URINE CLEAR (CLEAR); RBC,URINE None Seen /HPF (0-5); SQUAMOUS EPITHELIAL CELL,UR NONE SEEN (<= Few); WBC,URINE 0-3 /HPF (0-3)
[2022-09-17] MEDS: IBUPROFEN 400 MG TABLET PO SCH ×4 (00:06→21:32)
[2022-09-17] MEDS: ACETAMINOPHEN 325 MG TABLET PO SCH ×6 (00:06→20:01)
[2022-09-17] MEDS: PIPERACILLIN/TAZOBACTAM 3.375 GM in SODIUM CHLORIDE 0.9% MINIBAG 100 ML IV SCH ×4 (00:07→19:25)
[2022-09-17] MEDS: SODIUM CHLORIDE FLUSH 0.9% 10 ML SYRINGE IVP SCH ×6 (00:08→16:44)
[2022-09-17] MEDS: oxyCODONE 5 MG TABLET PO PRN ×5 (01:13→20:01)
[2022-09-17] MEDS: LORazepam 2 MG/ML VIAL IVP PRN (03:25)
[2022-09-17] MEDS: GABAPENTIN 300 MG CAPSULE PO SCH ×3 (05:19→21:33)
[2022-09-17] MEDS: POTASSIUM CHLORIDE 20 MEQ TABLET PO SCH ×3 (05:19→22:15)
[2022-09-17] MEDS: HYDROmorphone 2 MG/ML VIAL IVP PRN ×4 (05:20→19:22)
[2022-09-17] MEDS: PANTOPRAZOLE 40 MG VIAL IVP SCH (05:22)
[2022-09-17 05:26] LABS: BASOPHILS % (AUTO) 0.5 %; EOSINOPHILS % (AUTO) 1.6 %; HCT - HEMATOCRIT 32.1 % (42.0-52.0); HGB - HEMOGLOBIN 10.6 g/dL (14.0-18.0); LYMPHOCYTES % (AUTO) 16.5 %; MEAN CORPUSCULAR HEMOGLOBIN 30.3 pg (27.0-31.0); MEAN CORPUSCULAR VOLUME 91.7 fL (80.0-94.0); MEAN PLATELET VOLUME 8.6 fL (7.4-11.4); MONOCYTES % (AUTO) 7.4 %; RED CELL DISTRIBUTION WIDTH 14.3 % (12.0-15.0); WHITE BLOOD COUNT 21.6 x10^3/uL (4.8-10.8)
[2022-09-17 05:32] LABS: PLT - PLATELET COUNT 995 10^3/uL (130-450)
[2022-09-17 05:33] LABS: ABNORMAL LYMPHS % (MANUAL) 0 %; BAND NEUTROPHILS % (MANUAL) 0 %
[2022-09-17 05:41] LABS: DIFFERENTIAL COMMENT MANUAL DIFFERENTIAL; LYMPHOCYTES # (MANUAL) 5.2 10^3/uL (1.5-3.5); LYMPHOCYTES % (MANUAL) 24 %; METAMYELOCYTES % (MANUAL) 2 %; MONOCYTES # (MANUAL) 1.5 10^3/uL (0.0-1.0); MYELOCYTES % (MANUAL) 2 %; NEUTROPHILS # (MANUAL) 13.8 10^3/uL (1.5-6.6); PLATELET ESTIMATE, MANUAL INCREASED (>450,000) (NORMAL); PLATELET MORPHOLOGY NORMAL APPEARANCE (NORMAL); PROMYELOCYTES % (MANUAL) 1 %; RBC MORPHOLOGY (MULTIPLE) NORMAL APPEARANCE (NORMAL); WBC MORPHOLOGY (MULTIPLE) NORMAL APPEARANCE (NORMAL)
[2022-09-17 07:11] LABS: CALCIUM 8.9 mg/dL (8.5-10.3); CREATININE 0.9 mg/dL (0.6-1.2); POTASSIUM 4.6 mmol/L (3.5-5.0)
--- NOTE | 2022-09-17 07:30 | PROVIDER PROGRESS NOTE ---
Progress Note General Surgery Progress Note Hospital Day # 10: Fecal peritonitis due to perforated sigmoid colon POD # 9, Exploratory laparotomy, sigmoid colectomy, colostomy, washout, drainage ASSESSMENT: 1) S/P colectomy, colostomy for perforated sigmoid colon and feculent peritonitis. No image findings for persistent intra-abdominal infection on 12/16 CT. Very small fluid collection in the right pelvis. Continue IV Zosyn while still an in-patient and switch to out-patient oral Augmentin for a total of 14 days of antibiotics. 2) Leukocytosis - remains elevated. CXR does not show any infiltrate. UA does not demonstrate UTI, BCx pending. CVL removed, tip cultured yesterday. Bandemia has resolved. If WBC not down tomorrow or if patient shows clinical signs of infection, will order repeat CT abd/pelvis. 3) Midline wound - Wound vac management, changing MWF, next change this PM. 4) Colostomy - No issues, pink working well. 5) Hypertension - His diastolic BP has been above 90 since admission. He was not on antihypertensive medications pre-op. Now on amlodipine 5mg daily. 6) Pain tolerance is low and we have yet to achieve satisfactory oral management 7) Hypokalemia - resolved PLAN: 1) Continue multimodality pain control; increased PO ibuprofen and oxycodone doeses working well, encouraged patient to use PO meds, decreased IV dilaudid. Encouraged ambulation. If unable to make progress on pain control, may consider palliative care (pain management) consult. I have significant concern for patient's drug seeking, despite having a real source of pain. He is manipulative with nurses and myself and openly states he plans to take "as much pain medicat ion as I need" on discharge. I have strongly discouraged taking pain medication differently than prescribed and will not write additional prescriptions for pain medication on discharge. He is much more comfortable this AM. 2) Abdominal binder 3) Amlodipine increased to 5 mg PO Q day; first increased dose today; VS Q 4 hr to monitor response 4) PT evaluation to assist in mobility and ambulation. Encouraged IS and/or deep breathing exercises hourly. 5) Continue IV Zosyn while still an in-patient 6) Continue TID KCl supplementation and Multivits 7) Discharge when pain controlled with PO meds. <><><><><> PERTINENT INTERVAL ISSUES: None S: Patient more comfortable this AM, only used IV Dilaudid for pain control once overnight. Tolerating regular diet, no n/v. Bowel function via colostomy present. +ambulation. Unsure if he is feeling more motivated today. Refusing IS and abdominal binder. OBJECTIVE: I/O (24 hrs): UOP 3750mL VS: T 37 C, P 101; BP 155/96; RR 16; O2 sat 99% RA EXAMINATION: MENTAL STATUS: AAO; Comfortable and resting EYES: Pupils equal, round and reactive to light, sclera anicteric, EARS, NOSE, MOUTH, THROAT: Normal hearing, Oral mucous membranes moist and without lesions; NECK: No crepitus, lymphadenopathy, or thyromegaly LUNGS: Clear to auscultation without wheezing; decreased breath sounds in B bases. No use of accessory muscles to breathe. Can pull 2500mL on IS. CARDIOVASCULAR: Heart-NSR without murmurs ABD: Soft, mild incisional ttp on exam. Incision with intact and secure wound vac; LLQ ostomy functional and healthy. EXTREMITIES: No clubbing, cyanosis, edema SKIN: Anicteric; No rashes, lesions, ulcerations LABS: WBC 21.6k today (up slightly but bands have resolved) LINES: PIV, RIJ removed CULTURES: Repeat Cx pending Blood (presentation) - No Growth Peritoneal - E. Coli - sensitive to Zosyn, Ceftriaxone, Cipro IMAGING: No new imaging ANTIMICROBIALS: Day 8/14 - Now on day 3 IV Zosyn (Cipro/Flagyl for 4 days; Ceftriaxaone/Flagyl for 1 day) PAIN CONTROL: Dilaudid IV prn, Oxycodone PO prn, Ibuprofen, Acetaminophen, Gabapentin, LIZZIE Block VTEP: Chemical: Heparin, 5,000 units SQ Q 12 hrs Mechanical: MILANA Dubon MD General Surgery Service
[2022-09-17] MEDS: amLODIPine 5 MG TABLET PO SCH (08:13)
[2022-09-17] MEDS: SACCHAROMYCES BOULARDII 250 MG CAPSULE PO SCH ×2 (08:13→16:44)
[2022-09-17] MEDS: MULTIVITAMIN W/MINERALS TABLET PO SCH (08:13)
[2022-09-17] MEDS: NICOTINE 14 MG PATCH TOP SCH ×2 (08:14→16:07)
[2022-09-17] MEDS: HEPARIN 5,000 UNIT/ML VIAL SUBQ SCH ×2 (08:14→21:36)
[2022-09-17] MEDS: FAMOTIDINE 20 MG TABLET PO SCH ×2 (08:14→21:33)
[2022-09-17] MEDS: SODIUM CHLORIDE FLUSH 0.9% 10 ML SYRINGE IVP PRN ×7 (10:06→21:29)
[2022-09-17] MEDS: LORazepam 0.5 MG TABLET PO PRN (13:52)
[2022-09-17] MEDS: PROCHLORPERAZINE 10 MG/2 ML VIAL IVP PRN (21:29)
[2022-09-17] MEDS ORDERED: LORazepam 0.5 MG TABLET PO ONE (23:00)
[2022-09-17] MEDS ORDERED: HYDROmorphone 2 MG/ML VIAL IVP ONE (23:00)
[2022-09-18] MEDS: ACETAMINOPHEN 325 MG TABLET PO SCH ×7 (00:51→23:45)
[2022-09-18] MEDS: HYDROmorphone 2 MG/ML VIAL IVP PRN ×5 (00:51→21:02)
[2022-09-18] MEDS: SODIUM CHLORIDE FLUSH 0.9% 10 ML SYRINGE IVP SCH ×7 (00:54→23:45)
[2022-09-18] MEDS: PIPERACILLIN/TAZOBACTAM 3.375 GM in SODIUM CHLORIDE 0.9% MINIBAG 100 ML IV SCH ×3 (00:58→13:01)
[2022-09-18] MEDS: GABAPENTIN 300 MG CAPSULE PO SCH ×3 (05:44→22:22)
[2022-09-18] MEDS: PANTOPRAZOLE 40 MG VIAL IVP SCH (05:44)
[2022-09-18] MEDS: IBUPROFEN 400 MG TABLET PO SCH ×3 (05:44→22:21)
[2022-09-18] MEDS: POTASSIUM CHLORIDE 20 MEQ TABLET PO SCH (05:46)
[2022-09-18 06:05] LABS: BASOPHILS % (AUTO) 0.5 %; EOSINOPHILS % (AUTO) 1.1 %; HCT - HEMATOCRIT 34.5 % (42.0-52.0); HGB - HEMOGLOBIN 11.3 g/dL (14.0-18.0); LYMPHOCYTES % (AUTO) 13.3 %; MEAN CORPUSCULAR HEMOGLOBIN 30.8 pg (27.0-31.0); MEAN CORPUSCULAR HGB CONC 32.8 g/dL (32.0-36.0); MEAN PLATELET VOLUME 8.4 fL (7.4-11.4); MONOCYTES % (AUTO) 6.1 %; NEUTROPHILS % (AUTO) 74.3 %; RED BLOOD COUNT 3.67 10^6/uL (4.70-6.10); RED CELL DISTRIBUTION WIDTH 14.6 % (12.0-15.0); WHITE BLOOD COUNT 26.3 x10^3/uL (4.8-10.8)
[2022-09-18 06:16] LABS: ABNORMAL LYMPHS % (MANUAL) 0 %; BAND NEUTROPHILS % (MANUAL) 0 %; PLT - PLATELET COUNT 1261 10^3/uL (130-450)
[2022-09-18 06:24] LABS: LYMPHOCYTES # (MANUAL) 5.3 10^3/uL (1.5-3.5); LYMPHOCYTES % (MANUAL) 20 %; METAMYELOCYTES % (MANUAL) 1 %; MONOCYTES # (MANUAL) 0.5 10^3/uL (0.0-1.0); MYELOCYTES % (MANUAL) 3 %; NEUTROPHILS # (MANUAL) 19.5 10^3/uL (1.5-6.6)
[2022-09-18 06:26] LABS: DIFFERENTIAL COMMENT MANUAL DIFFERENTIAL; PLATELET ESTIMATE, MANUAL INCREASED (>450,000) (NORMAL); PLATELET MORPHOLOGY NORMAL APPEARANCE (NORMAL); RBC MORPHOLOGY (MULTIPLE) NORMAL APPEARANCE (NORMAL); WBC MORPHOLOGY (MULTIPLE) NORMAL APPEARANCE (NORMAL)
[2022-09-18] MEDS: oxyCODONE 5 MG TABLET PO PRN ×5 (06:37→22:18)
--- NOTE | 2022-09-18 06:48 | PROVIDER PROGRESS NOTE ---
Progress Note General Surgery Progress Note Hospital Day # 11: Fecal peritonitis due to perforated sigmoid colon POD # 10, Exploratory laparotomy, sigmoid colectomy, colostomy, washout, drainage ASSESSMENT: 1) S/P colectomy, colostomy for perforated sigmoid colon and feculent peritonitis. No image findings for persistent intra-abdominal infection on 12/16 CT. Very small fluid collection in the right pelvis. Continue IV Zosyn while still an in-patient and switch to out-patient oral Augmentin for a total of 14 days of antibiotics. 2) Leukocytosis - increased today, will repeat CT this AM. CXR does not show any infiltrate. UA does not demonstrate UTI, BCx NGTD (1 day). CVL removed, tip cultured yesterday. Bandemia has resolved. 3) Midline wound - Wound vac management, changing MWF, next change tomorrow. No sign of infection on vac change yesterday. Possible secondary wound closure prior to discharge (this would keep him from needing home vac on discharge). 4) Colostomy - No issues, pink working well. 5) Hypertension - His diastolic BP has been above 90 since admission. He was not on antihypertensive medications pre-op. Now on amlodipine 5mg daily. 6) Pain tolerance is low and we have yet to achieve satisfactory oral management 7) Hypokalemia - resolved PLAN: 1) Continue multi-modal pain control; increased PO ibuprofen and oxycodone doses working well, encouraged patient to use PO meds, decreased IV dilaudid frequency. Encouraged ambulation. If unable to make progress on pain control, may consider palliative care (pain management) consult. I have significant concern for patient's drug seeking, despite having a real source of pain. 2) Abdominal binder 3) Amlodipine 5 mg PO Q day; VS Q 4 hr to monitor response 4) Continue to encourage ambulation. Encouraged IS and/or deep breathing exercises hourly. 5) Continue IV Zosyn while still an in-patient 6) Discharge when pain controlled with PO meds. <><><><><> PERTINENT INTERVAL ISSUES: None S: Patient had an episode of severe pain last night, improved with one time dose IV meds. He states he is feeling "quite a bit better" this AM and has been walking in the halls most of the morning. He was able to get some sleep last night. Denies f/c. Tolerating regular diet but did get compazine once yesterday for nausea. No vomiting. Ostomy working well. OBJECTIVE: I/O (24 hrs): UOP 2550mL VS: T 37.4 C, P 116; BP 137/100; RR 18; O2 sat 98% RA EXAMINATION: MENTAL STATUS: AAO; Comfortable and resting EYES: Pupils equal, round and reactive to light, sclera anicteric, EARS, NOSE, MOUTH, THROAT: Normal hearing, Oral mucous membranes moist and without lesions; NECK: No crepitus, lymphadenopathy, or thyromegaly LUNGS: Clear to auscultation without wheezing; decreased breath sounds in B bases. No use of accessory muscles to breathe. Can pull 2500mL on IS. CARDIOVASCULAR: tachycardic, regular rhythm, without murmurs ABD: Soft, mild incisional ttp on exam. Incision with intact and secure wound vac; LLQ ostomy functional and healthy. EXTREMITIES: No clubbing, cyanosis, edema SKIN: Anicteric; No rashes, lesions, ulcerations LABS: WBC 26k today (increased) LINES: PIV (RIJ removed, visibly soiled per RN) CULTURES: Repeat Cx NGTD at one day, continue to follow Blood (presentation) - No Growth Peritoneal - E. Coli - sensitive to Zosyn, Ceftriaxone, Cipro IMAGING: No new imaging ANTIMICROBIALS: Day 10/14 - Now on day 5 IV Zosyn (Cipro/Flagyl for 4 days; Ceftriaxaone/Flagyl for 1 day) PAIN CONTROL: Dilaudid IV prn, Oxycodone PO prn, Ibuprofen, Acetaminophen, Gabapentin, LIZZIE Block VTEP: Chemical: Heparin, 5,000 units SQ Q 12 hrs Mechanical: MILANA Dubon MD General Surgery Service
[2022-09-18 06:52] LABS: CALCIUM 9.1 mg/dL (8.5-10.3); CREATININE 0.8 mg/dL (0.6-1.2); POTASSIUM 4.5 mmol/L (3.5-5.0)
[2022-09-18] MEDS: HEPARIN 5,000 UNIT/ML VIAL SUBQ SCH (08:53)
[2022-09-18] MEDS: amLODIPine 5 MG TABLET PO SCH (08:55)
[2022-09-18] MEDS: FAMOTIDINE 20 MG TABLET PO SCH ×2 (08:55→21:04)
[2022-09-18] MEDS: NICOTINE 14 MG PATCH TOP SCH (08:55)
[2022-09-18] MEDS: SACCHAROMYCES BOULARDII 250 MG CAPSULE PO SCH ×2 (08:55→16:48)
[2022-09-18] MEDS: MULTIVITAMIN W/MINERALS TABLET PO SCH (09:04)
[2022-09-18] MEDS ORDERED: iohexoL-300 100 ML VIAL ONE (10:46)
[2022-09-18] MEDS ORDERED: iohexoL-300 100 ML VIAL IVP ONE (12:05)
--- NOTE | 2022-09-18 12:15 | CT Report ---
PROCEDURE: ABDOMEN/PELVIS W INDICATIONS: r/o abscess, leukocytosis CONTRAST: 100mL Omni 300 TECHNIQUE: After the administration of intravenous contrast, 5 mm thick sections acquired from the diaphragms to the symphysis. 5 mm thick coronal and sagittal reformats were acquired. For radiation dose reducti on, the following was used: automated exposure control, adjustment of mA and/or kV according to lizbeth ent size. COMPARISON: CT abdomen pelvis 09/14/2022. FINDINGS: Image quality: Excellent. Images are denoted as (series #/image #). Visualized lung bases: Small left pleural effusion, decreased since before. Near resolution of prior right pleural effusion. Liver and biliary tree: No suspect focal hepatic lesion. No biliary ductal dilation. Gallbladder: No radiopaque cholelithiasis. Spleen: Unremarkable. Pancreas: Unremarkable. Adrenal glands: Unremarkable. Kidneys and ureters: No hydronephrosis. 2 mm nonobstructing stone right mid kidney. Gastrointestinal tract: Postsurgical changes from Tangela's pouch creation and left lower quadrant e nd colostomy as before. Small bowel dilation has resolved since the previous exam. No definite eviden ce of mechanical small bowel obstruction. Peritoneal cavity: Redemonstrated small fluid collection in the right lower quadrant of the abdomen, measuring 3.5 x 2.2 x 3.0 cm (03/17, ) previously 3.5 x 1.7 x 2.4 cm, slightly increased. The righ t lower quadrant percutaneous drain has been removed in the interval. Bladder: Unremarkable. Pelvic organs: Unremarkable CT appearance. Vasculature: No abdominal aortic aneurysm. Musculoskeletal: Degenerative change of the spine. IMPRESSION: 1. Slight increase in size of the previously demonstrated right lower quadrant fluid collection, poss ibly organizing / early abscess. 2. Decrease in size of bilateral pleural effusions. Reviewed by: Rafat Landa MD on 09/18/2022 12:14 PM PST Approved by: Rafat Landa MD on 09/18/2022 12:14 PM PST Station ID: [id number]
[2022-09-18] MEDS: LORazepam 0.5 MG TABLET PO PRN (12:20)
[2022-09-18] MEDS ORDERED: HEPARIN 5,000 UNIT/ML VIAL SUBQ SCH (12:53)
[2022-09-18] MEDS: SODIUM CHLORIDE FLUSH 0.9% 10 ML SYRINGE IVP PRN ×2 (13:01→22:23)
[2022-09-18] MEDS: cefTRIAXone 2 GM in SODIUM CHLORIDE 0.9% MINIBAG 100 ML IV SCH (14:06)
[2022-09-18] MEDS: metroNIDAZOLE 500 MG/100 ML 500 MG/100 ML BAG IV SCH ×2 (14:56→22:22)
[2022-09-19] MEDS: SODIUM CHLORIDE FLUSH 0.9% 10 ML SYRINGE IVP PRN ×2 (00:57→17:16)
[2022-09-19] MEDS: HYDROmorphone 2 MG/ML VIAL IVP PRN ×5 (00:57→18:53)
[2022-09-19] MEDS: SODIUM CHLORIDE FLUSH 0.9% 10 ML SYRINGE IVP SCH ×6 (01:09→23:53)
[2022-09-19] MEDS: oxyCODONE 5 MG TABLET PO PRN ×4 (02:13→23:52)
[2022-09-19] MEDS: ACETAMINOPHEN 325 MG TABLET PO SCH ×6 (03:07→23:52)
[2022-09-19] MEDS: IBUPROFEN 400 MG TABLET PO SCH ×3 (05:25→22:15)
[2022-09-19] MEDS: metroNIDAZOLE 500 MG/100 ML 500 MG/100 ML BAG IV SCH ×3 (05:25→22:15)
[2022-09-19] MEDS: GABAPENTIN 300 MG CAPSULE PO SCH ×3 (05:25→22:15)
[2022-09-19] MEDS: PANTOPRAZOLE 40 MG VIAL IVP SCH (06:16)
[2022-09-19 06:59] LABS: PT - PROTHROMBIN TIME 11.3 secs (9.9-12.6)
[2022-09-19 07:00] LABS: BUN - BLOOD UREA NITROGEN 14 mg/dL (6-20); CALCIUM 8.9 mg/dL (8.5-10.3); CARBON DIOXIDE - CO2 25 mmol/L (21-32); CHLORIDE 102 mmol/L (101-111); CREATININE 0.8 mg/dL (0.6-1.2); GFR - MDRD 107 (>89); GLUCOSE 112 mg/dL (70-100); IONIZED CALCIUM IF INDICATED NO; POTASSIUM 4.2 mmol/L (3.5-5.0); SODIUM 136 mmol/L (135-145)
[2022-09-19] MEDS ORDERED: DIATRIZOATE MEGLU/DIATRIZO SOD 30 ML BOTTLE PO ONE (07:09)
[2022-09-19] MEDS ORDERED: LIDOCAINE-MPF 1% 5 ML VIAL ONE ×2 (07:09→11:20)
[2022-09-19 07:13] LABS: BASOPHILS % (AUTO) 0.4 %; EOSINOPHILS % (AUTO) 1.4 %; HGB - HEMOGLOBIN 10.9 g/dL (14.0-18.0); MEAN CORPUSCULAR HEMOGLOBIN 30.2 pg (27.0-31.0); MEAN CORPUSCULAR VOLUME 91.4 fL (80.0-94.0); MEAN PLATELET VOLUME 8.6 fL (7.4-11.4); MONOCYTES % (AUTO) 5.9 %; NEUTROPHILS % (AUTO) 73.7 %; RED BLOOD COUNT 3.61 10^6/uL (4.70-6.10); RED CELL DISTRIBUTION WIDTH 14.6 % (12.0-15.0); WHITE BLOOD COUNT 20.2 x10^3/uL (4.8-10.8)
[2022-09-19 07:18] LABS: PLT - PLATELET COUNT 849 10^3/uL (130-450); SLIDE REVIEW? Indicated
[2022-09-19 07:19] LABS: ABNORMAL LYMPHS % (MANUAL) 0 %
--- NOTE | 2022-09-19 07:22 | PROVIDER PROGRESS NOTE ---
Progress Note General Surgery Progress Note Hospital Day # 12: Fecal peritonitis due to perforated sigmoid colon POD # 11, Exploratory laparotomy, sigmoid colectomy, colostomy, washout, drainage ASSESSMENT: 1) S/P colectomy, colostomy for perforated sigmoid colon and feculent peritonitis. Repeat CT 09/18 shows slight increase in RLQ fluid collection since 09/14 study. Abx changed to rocephin and flagyl given increasing leukocytosis. Plan for perc aspiration +/- drain placement today by IR. 2) Leukocytosis - AM value pending. CXR does not show any infiltrate. UA does not demonstrate UTI, BCx NGTD (2 days). CVL removed, tip cultured yesterday. Bandemia has resolved. 3) Midline wound - Plan for delayed primary closure of wound today. No sign of infection on vac change Saturday. Patient will not need wound vac at time of discharge. 4) Colostomy - No issues, pink working well. 5) Hypertension - His diastolic BP has been above 90 since admission. He was not on antihypertensive medications pre-op. Now on amlodipine 5mg daily. 6) Pain tolerance is low and we are making slow progress towards satisfactory oral management 7) Hypokalemia - resolved PLAN: 1) Continue multi-modal pain control; increased PO ibuprofen and oxycodone doses working well, encouraged patient to use PO meds, decreased IV dilaudid frequency. Encouraged ambulation. If unable to make progress on pain control, may consider palliative care (pain management) consult. I have significant co ncern for patient's drug seeking, despite having a real source of pain. 2) Abdominal binder 3) Amlodipine 5 mg PO Q day; VS Q 4 hr to monitor response 4) Continue to encourage ambulation. Encouraged IS and/or deep breathing exercises hourly. 5) Continue IV antibiotics while still an in-patient 6) Discharge when pain controlled with PO meds. <><><><><> PERTINENT INTERVAL ISSUES: None S: Patient did not sleep well last night and complains of being hungry this AM. No f/c. Tolerated regular diet yesterday. No acute events overnight. +ambulation Ostomy working well. OBJECTIVE: I/O (24 hrs): UOP 850mL with 5 uncounted voids VS: T 36.9 C, P 95; BP 142/94; RR 16; O2 sat 99% RA EXAMINATION: MENTAL STATUS: AAO; Comfortable and resting EYES: Pupils equal, round and reactive to light, sclera anicteric, EARS, NOSE, MOUTH, THROAT: Normal hearing, Oral mucous membranes moist and without lesions; NECK: No crepitus, lymphadenopathy, or thyromegaly LUNGS: Clear to auscultation without wheezing; decreased breath sounds in B bases. No use of accessory muscles to breathe. Can pull 2500mL on IS. CARDIOVASCULAR: RRR, without murmurs ABD: Soft, mild incisional ttp on exam. Incision with intact and secure wound vac; LLQ ostomy functional and healthy, appliance leaking. EXTREMITIES: No clubbing, cyanosis, edema SKIN: Anicteric; No rashes, lesions, ulcerations LABS: WBC 26k today (increased) LINES: PIV (RIJ removed, visibly soiled per RN) CULTURES: Repeat Cx NGTD at one day, continue to follow Blood (presentation) - No Growth Peritoneal - E. Coli - sensitive to Zosyn, Ceftriaxone, Cipro IMAGING: No new imaging ANTIMICROBIALS: Day 11/14 - Now on day 1 of rocephin/flagyl (Cipro/Flagyl for 4 days; Ceftri axaone/Flagyl for 1 day; s/p 5 days IV zosyn) PAIN CONTROL: Dilaudid IV prn, Oxycodone PO prn, Ibuprofen, Acetaminophen, Gabapentin, LIZZIE Block VTEP: Chemical: Heparin, 5,000 units SQ Q 12 hrs (held for procedures today) Mechanical: [employer] Edith Dubon MD General Surgery Service
[2022-09-19] MEDS ORDERED: fentaNYL 100 MCG/2 ML VIAL IVP ONE (07:36)
[2022-09-19] MEDS ORDERED: MIDAZOLAM 2 MG/2 ML VIAL IVP ONE ×2 (07:36)
[2022-09-19 07:40] LABS: BAND NEUTROPHILS % (MANUAL) 3 %; LYMPHOCYTES # (MANUAL) 2.8 10^3/uL (1.5-3.5); LYMPHOCYTES % (MANUAL) 12 %; MONOCYTES # (MANUAL) 1.4 10^3/uL (0.0-1.0); MYELOCYTES % (MANUAL) 5 %; NEUTROPHILS # (MANUAL) 14.9 10^3/uL (1.5-6.6); REACTIVE LYMPHS % (MANUAL) 2 %
[2022-09-19 07:41] LABS: DIFFERENTIAL COMMENT MANUAL DIFFERENTIAL; PLATELET ESTIMATE, MANUAL INCREASED (>450,000) (NORMAL)
[2022-09-19] MEDS ORDERED: BUPIVACAINE 0.5% PF 30 ML VIAL ONE (07:46)
[2022-09-19] MEDS ORDERED: LIDOCAINE MPF 2%-EPI 1:200000 20 ML VIAL ONE (07:46)
--- NOTE | 2022-09-19 08:22 | ANESTHESIA ---
Pre-Anesthesia VS, & Labs - Diagnosis abdominal incison with wound vac s/p surgery - Procedure wound vac removal with wound closure Vital Signs: Temp Pulse Resp BP Pulse Ox O2 Flow Rate 36.9 C 101 H 16 138/88 H 98 2 09/19/22 07:19 09/19/22 07:19 09/19/22 07:19 09/19/22 07:19 09/19/22 07:19 09/10/22 16:31 Height: 6 ft 1 in Weight (kg): 81 kg Body Mass Index: 23.6 BMI Classification: Normal - NPO >8 hours - Lab Results Current Lab Results: Laboratory Tests 09/19/22 06:45: Ionized Calcium NO, Sodium 136, Potassium 4.2, Chloride 102, Carbon Dioxide 25, Anion Gap 9.0, BUN 14, Creatinine 0.8, Estimated GFR (MDRD) 107, Glucose 112 H, Calcium 8.9 09/19/22 06:45: PT 11.3, INR 1.0 09/19/22 06:45: WBC 20.2 H, RBC 3.61 L, Hgb 10.9 L, Hct 33.0 L, MCV 91.4, MCH 30.2, MCHC 33.0, RDW 14.6, Plt Count 849 H*, MPV 8.6, Neut # (Auto) Not Reportable, Lymph # (Auto) Not Reportable, Hodgeman # (Auto) Not Reportable, Eos # (Auto) Not Reportable, Baso # (Auto) Not Reportable, Absolute Nucleated RBC Not Reportable, Total Counted 100, Band Neuts % (Manual) 3, Reactive Lymphs % (Man) 2, Abnorm Lymph % (Manual) 0, Myelocytes % 5 H, Nucleated RBC % Not Reportable, Neutrophils # (Manual) 14.9 H, Lymphocytes # (Manual) 2.8, Monocytes # (Manual) 1.4 H, Eosinophils # (Manual) 0.0, Basophils # (Manual) 0.0, Differential Comment MANUAL DIFFERENTIAL, Manual Slide Review Indicated, Platelet Estimate I NCREASED (>450,000) 09/18/22 05:45: Sodium 138, Potassium 4.5, Chloride 102, Carbon Dioxide 25, Anion Gap 11.0, BUN 14, Creatinine 0.8, Estimated GFR (MDRD) 107, Glucose 118 H, Calcium 9.1 09/18/22 05:45: WBC 26.3 H, RBC 3.67 L, Hgb 11.3 L, Hct 34.5 L, MCV 94.0, MCH 30.8, MCHC 32.8, RDW 14.6, Plt Count 1261 H*, MPV 8.4, Neut # (Auto) Not Reportable, Lymph # (Auto) Not Reportable, Hodgeman # (Auto) Not Reportable, Eos # (Auto) Not Reportable, Baso # (Auto) Not Reportable, Absolute Nucleated RBC Not Reportable, Total Counted 100, Band Neuts % (Manual) 0, Abnorm Lymph % (Manual) 0, Metamyelocytes % 1 H, Myelocytes % 3 H, Nucleated RBC % Not Reportable, Neutrophils # (Manual) 19.5 H, Lymphocytes # (Manual) 5.3 H, Monocytes # (Manual) 0.5, Eosinophils # (Manual) 0.0, Basophils # (Manual) 0.0, Differential Comment MANUAL DIFFERENTIAL, WBC Morphology NORMAL APPEARANCE, Platelet Estimate INCREASED (>450,000), Platelet Morphology NORMAL APPEARANCE, RBC Morph Micro Appear NORMAL APPEARANCE 09/17/22 05:09: Sodium 136, Potassium 4.6, Chloride 100 L, Carbon Dioxide 26, Anion Gap 10.0, BUN 14, Creatinine 0.9, Estimated GFR (MDRD) 93, Glucose 151 H, Calcium 8.9 09/17/22 05:09: WBC 21.6 H, RBC 3.50 L, Hgb 10.6 L, Hct 32.1 L, MCV 91.7, MCH 30.3, MCHC 33.0, RDW 14.3, Plt Count 995 H*, MPV 8.6, Neut # (Auto) Not Reportable, Lymph # (Auto) Not Reportable, Hodgeman # (Auto) Not Reportable, Eos # (Auto) Not Reportable, Baso # (Auto) Not Reportable, Absolute Nucleated RBC Not Reportable, Total Counted 100, Band Neuts % (Manual) 0, Abnorm Lymph % (Manual) 0, Metamyelocytes % 2 H, Myelocytes % 2 H, Promyelocytes % 1 H, Nucleated RBC % Not Reportable, Neutrophils # (Manual) 13.8 H, Lymphocytes # (Manual) 5.2 H, Monocytes # (Manual) 1.5 H, Eosinophils # (Manual) 0.0, Basophils # (Manual) 0.0, Differential Comment MANUAL DIFFERENTIAL, WBC Morphology NORMAL APPEARANCE, Platelet Estimate INCREASED (>450,000), Platelet Morphology NORMAL APPEARANCE, RBC Morph Micro Appear NORMAL APPEARANCE 09/16/22 08:50: WBC 19.5 H, RBC 3.52 L, Hgb 10.8 L, Hct 32.0 L, MCV 90.9, MCH 30.7, MCHC 33.8, RDW 14.1, Plt Count 726 H, MPV 8.4, Neut # (Auto) Not Reportable, Lymph # (Auto) Not Reportable, Hodgeman # (Auto) Not Reportable, Eos # (Auto) Not Reportable, Baso # (Auto) Not Reportable, Absolute Nucleated RBC Not Reportable, Total Counted 100, Band Neuts % (Manual) 4, Abnorm Lymph % (Manual) 0, Metamyelocytes % 1 H, Myelocytes % 1 H, Promyelocytes % 1 H, Nucleated RBC % Not Reportable, Neutrophils # (Manual) 13.1 H, Lymphocytes # (Manual) 4.5 H, Monocytes # (Manual) 1.2 H, Eosinophils # (Manual) 0.2, Basophils # (Manual) 0.0, Differential Comment MANUAL DIFFERENTIAL, Platelet Estimate INCREASED (>450,000), RBC Morph Micro Appear 1+ ANISOCYTOSIS 09/15/22 05:50: Sodium 137, Potassium 3.9, Chloride 99 L, Carbon Dioxide 28, Anion Gap 10.0, BUN 7, Creatinine 0.7, Estimated GFR (MDRD) 125, Glucose 141 H, Calcium 7.9 L 09/15/22 05:50: WBC 18.6 H, RBC 3.35 L, Hgb 10.1 L, Hct 30.2 L, MCV 90.1, MCH 30.1, MCHC 33.4, RDW 13.6, Plt Count 555 H, MPV 8.6, Neut # (Auto) 11.7 H, Lymph # (Auto) 3.5, Hodgeman # (Auto) 1.7 H, Eos # (Auto) 0.4, Baso # (Auto) 0.1, Absolute Nucleated RBC 0.00, Nucleated RBC % 0.0 09/14/22 05:24: WBC 20.4 H, RBC 3.34 L, Hgb 10.0 L, Hct 30.1 L, MCV 90.1, MCH 29.9, MCHC 33.2, RDW 13.3, Plt Count 450, MPV 8.8, Neut # (Auto) Not Reportable, Lymph # (Auto) Not Reportable, Hodgeman # (Auto) Not Reportable, Eos # (Auto) Not Reportable, Baso # (Auto) Not Reportable, Absolute Nucleated RBC Not Reportable, Total Counted 100, Band Neuts % (Manual) 6, Abnorm Lymph % (Manual) 0, Nucleated RBC % Not Reportable, Neutrophils # (Manual) 15.7 H, Lymphocytes # (Manual) 3.1, Monocytes # (Manual) 0.8, Eosinophils # (Manual) 0.8 H, Basophils # (Manual) 0.0, Differential Comment MANUAL DIFFERENTIAL, Platelet Estimate NORMAL (130- 450,000), RBC Morph Micro Appear NORMAL APPEARANCE 09/13/22 05:38: Sodium 134 L, Potassium 3.4 L, Chloride 99 L, Carbon Dioxide 27, Anion Gap 8.0, BUN 8, Creatinine 0.6, Estimated GFR (MDRD) 149, Glucose 147 H, Calcium 7.6 L 09/13/22 05:38: WBC 23.4 H, RBC 3.45 L, Hgb 10.4 L, Hct 30.6 L, MCV 88.7, MCH 30.1, MCHC 34.0, RDW 13.0, Plt Count 362, MPV 8.7, Neut # (Auto) Not Reportable, Lymph # (Auto) Not Reportable, Hodgeman # (Auto) Not Reportable, Eos # (Auto) Not Reportable, Baso # (Auto) Not Reportable, Absolute Nucleated RBC Not Reportable, Total Counted 100, Band Neuts % (Manual) 2, Abnorm Lymph % (Manual) 0, Nucleated RBC % Not Reportable, Neutrophils # (Manual) 17.3 H, Lymphocytes # (Manual) 2.3, Monocytes # (Manual) 2.8 H, Eosinophils # (Manual) 0.9 H, Basophils # (Manual) 0.0, Differential Comment MANUAL DIFFERENTIAL, Platelet Estimate NORMAL (130- 450,000), RBC Morph Micro Appear NORMAL APPEARANCE 09/12/22 08:20: Sodium 136, Potassium 3.3 L, Chloride 101, Carbon Dioxide 28, Anion Gap 7.0, BUN 7, Creatinine 0.8, Estimated GFR (MDRD) 107, Glucose 120 H, Calcium 7.8 L 09/12/22 08:20: WBC 20.6 H, RBC 3.51 L, Hgb 10.5 L, Hct 31.3 L, MCV 89.2, MCH 29.9, MCHC 33.5, RDW 13.0, Plt Count 325, MPV 8.8, Neut # (Auto) 16.7 H, Lymph # (Auto) 1.8, Hodgeman # (Auto) 1.3 H, Eos # (Auto) 0.3, Baso # (Auto) 0.1, Absolute Nucleated RBC 0.00, Nucleated RBC % 0.0, Manual Slide Review Indicated, Platelet Estimate NORMAL (130-450,000), Platelet Morphology NORMAL APPEARANCE, RBC Morph Micro Appear NORMAL APPEARANCE 09/11/22 04:30: Potassium 3.5 09/11/22 04:30: VBG pH 7.432 H, Ionized Calcium 1.10 L 09/11/22 04:30: Phosphorus 2.3 L, Magnesium 1.7 09/10/22 05:15: Phosphorus 2.2 L 09/10/22 05:15: WBC 17.0 H, RBC 3.34 L, Hgb 10.0 L, Hct 30.3 L, MCV 90.7, MCH 29.9, MCHC 33.0, RDW 13.1, Plt Count 249, MPV 8.8, Neut # (Auto) 14.8 H, Lymph # (Auto) 1.1 L, Hodgeman # (Auto) 0.6, Eos # (Auto) 0.0, Baso # (Auto) 0.1, Absolute Nucleated RBC 0.00, Nucleated RBC % 0.0 09/10/22 05:15: VBG pH 7.454 H, Ionized Calcium 1.11 L 09/10/22 05:15: Sodium 133 L, Potassium 3.8, Chloride 100 L, Carbon Dioxide 24, Anion Gap 9.0, BUN 15, Creatinine 0.7, Estimated GFR (MDRD) 125, Glucose 103 H, Calcium 8.0 L, Phosphorus 2.2 L, Magnesium 2.0 09/09/22 18:17: Magnesium 2.1 09/09/22 18:17: VBG pH 7.465 H, Ionized Calcium 1.08 L 09/09/22 04:45: VBG pH 7.488 H, Ionized Calcium 1.01 L 09/09/22 04:45: Sodium 132 L, Potassium 4.1, Chloride 98 L, Carbon Dioxide 23, Anion Gap 11.0, BUN 15, Creatinine 0.7, Estimated GFR (MDRD) 125, Glucose 144 H, Calcium 8.0 L, Phosphorus 3.6, Magnesium 1.5 L 09/09/22 04:45: WBC 16.1 H, RBC 4.20 L, Hgb 12.7 L, Hct 37.2 L, MCV 88.6, MCH 30.2, MCHC 34.1, RDW 13.0, Plt Count 272, MPV 10.4, Neut # (Auto) Not Reportable, Lymph # (Auto) Not Reportable, Hodgeman # (Auto) Not Reportable, Eos # (Auto) Not Reportable, Baso # (Auto) Not Reportable, Absolute Nucleated RBC Not Reportable, Total Counted 100, Band Neuts % (Manual) 47 H, Abnorm Lymph % (Manual) 0, Metamyelocytes % 1 H, Myelocytes % 1 H, Nucleated RBC % Not Reportable, Neutrophils # (Manual) 13.2 H, Lymphocytes # (Manual) 2.4, Monocytes # (Manual) 0.2, Eosinophils # (Manual) 0.0, Basophils # (Manual) 0.0, Differential Comment MANUAL DIFFERENTIAL, Platelet Estimate NORMAL (130- 450,000), RBC Morph Micro Appear NORMAL APPEARANCE 09/08/22 20:00: Sodium 132 L, Potassium 4.9, Chloride 100 L, Carbon Dioxide 24, Anion Gap 8.0, BUN 16, Creatinine 0.8, Estimated GFR (MDRD) 107, Glucose 180 H, Calcium 7.9 L 09/08/22 20:00: WBC 7.1, RBC 4.65 L, Hgb 13.8 L, Hct 41.6 L, MCV 89.5, MCH 29.7, MCHC 33.2, RDW 12.6, Plt Count 289, MPV 9.7, Neut # (Auto) Not Reportable, Lymph # (Auto) Not Reportable, Hodgeman # (Auto) Not Reportable, Eos # (Auto) Not Reportable, Baso # (Auto) Not Reportable, Absolute Nucleated RBC Not Reportable, Total Counted 100, Band Neuts % (Manual) 53 H, Reactive Lymphs % (Man) 1, Abnorm Lymph % (Manual) 0, Nucleated RBC % Not Reportable, Neutrophils # (Manual) 5.5, Lymphocytes # (Manual) 0.9 L, Monocytes # (Manual) 0.6, Eosinophils # (Manual) 0.0, Basophils # (Manual) 0.0, Differential Comment MANUAL DIFFERENTIAL, Platelet Estimate NORMAL (130-450,000), Platelet Morphology NORMAL APPEARANCE, RBC Morph Micro Appear NORMAL APPEARANCE 09/08/22 16:22: Troponin I High Sens 5.0 09/08/22 14:35: Lactic Acid 2.2 09/08/22 14:22: Sodium 132 L, Potassium 3.8, Chloride 96 L, Carbon Dioxide 25, Anion Gap 11.0, BUN 19, Creatinine 0.8, Estimated GFR (MDRD) 107, Glucose 169 H, Calcium 9.1, Total Bilirubin 1.5 H, AST 30, ALT 49, Alkaline Phosphatase 82, Total Protein 7.4, Albumin 3.7, Globulin 3.7, Albumin/Globulin Ratio 1.0, Lipase 24 09/08/22 14:22: WBC 7.1, RBC 4.66 L, Hgb 13.9 L, Hct 41.5 L, MCV 89.1, MCH 29.8, MCHC 33.5, RDW 12.4, Plt Count 278, MPV 9.9, Neut # (Auto) Not Reportable, Lymph # (Auto) Not Reportable, Hodgeman # (Auto) Not Reportable, Eos # (Auto) Not Reportable, Baso # (Auto) Not Reportable, Absolute Nucleated RBC Not Reportable, Total Counted 100, Band Neuts % (Manual) 25 H, Abnorm Lymph % (Manual) 0, Nucleated RBC % Not Reportable, Neutrophils # (Manual) 6.4, Lymphocytes # (Manual) 0.4 L, Monocytes # (Manual) 0.3, Eosinophils # (Manual) 0.0, Basophils # (Manual) 0.0, Differential Comment MANUAL DIFFERENTIAL, Platelet Estimate NORMAL (130-450,000), Platelet Morphology NORMAL APPEARANCE, RBC Morph Micro Ap pear NORMAL APPEARANCE Lab results reviewed: Yes Fish Bones: 09/19/22 06:45 09/19/22 06:45 Home Medications and Allergies Home Medications: Ambulatory Orders No Known Home Medications 09/08/22 Active Medications Acetaminophen (Acetaminophen 325 Mg Tablet) 650 mg PO Q4H [facility] Last Admin: 09/19/22 07:06 Dose: 650 mg Amlodipine Besylate (Amlodipine 5 Mg Tablet) 5 mg PO DAILY [facility] Last Admin: 09/18/22 08:55 Dose: 5 mg Famotidine (Famotidine 20 Mg Tablet) 20 mg PO BID [facility] Last Admin: 09/18/22 21:04 Dose: 20 mg Gabapentin (Gabapentin 300 Mg Capsule) 300 mg PO TID [facility] Last Admin: 09/19/22 05:25 Dose: 300 mg Hydromorphone HCl (Hydromorphone 2 Mg/Ml Vial) 1 mg IVP Q4HR PRN PRN Reason: Severe Pain Last Admin: 09/19/22 05:26 Dose: 1 mg Ceftriaxone Sodium 2 gm/ (Sodium Chloride) 100 mls @ 200 mls/hr IV DAILY [facility] Last Infusion: 09/18/22 14:40 Dose: Infused Metronidazole (Flagyl 500 Mg/100 Ml) 500 mg in 100 mls @ 100 mls/hr IV Q8H [facility] Last Infusion: 09/19/22 07:48 Dose: Infused Ibuprofen (Ibuprofen 400 Mg Tablet) 600 mg PO TID [facility] Last Admin: 09/19/22 05:25 Dose: 600 mg Lorazepam (Lorazepam 0.5 Mg Tablet) 0.5 mg PO Q12H PRN PRN Reason: Anxiety Last Admin: 09/18/22 12:20 Dose: 0.5 mg Multivitamins/Minerals (Multivitamin W/Minerals Tablet) 1 tab PO DAILYWM [facility] Last Admin: 09/18/22 09:04 Dose: 1 tab Nicotine (Nicotine 14 Mg Patch) 1 patch TOP DAILY [facility] Last Admin: 09/18/22 08:55 Dose: 1 patch Oxycodone HCl (Oxycodone 5 Mg Tablet) 15 mg PO Q4HR PRN PRN Reason: PAIN OVER 5 Last Admin: 09/19/22 07:06 Dose: 15 mg Pantoprazole Sodium (Pantoprazole 40 Mg Vial) 40 mg IVP QDAC [facility] Last Admin: 09/19/22 06:16 Dose: 40 mg Phenol/Menthol (Phenol Throat [place] 177 Ml) 2 sprays MM Q2HR PRN PRN Reason: Throat Pain Last Admin: 09/08/22 21:51 Dose: 2 sprays Prochlorperazine Edisylate (Prochlorperazine 10 Mg/2 Ml Vial) 10 mg IVP Q4HR PRN PRN Reason: Nausea / Vomiting Last Admin: 09/17/22 21:29 Dose: 10 mg Saccharomyces Boulardii (Saccharomyces Boulardii 250 Mg Capsule) 250 mg PO BIDWM [facility] Last Admin: 09/18/22 16:48 Dose: 250 mg Sodium Chloride (Sodium Chloride Flush 0.9% 10 Ml Syringe) 10 ml IVP 0100,0900,1700 [facility] Last Admin: 09/18/22 23:45 Dose: 10 ml Sodium Chloride (Sodium Chloride Flush 0.9% 10 Ml Syringe) 10 ml IVP PRN PRN PRN Reason: NEEDED PER PROVIDER ORDERS Last Admin: 09/19/22 00:57 Dose: 10 ml Sodium Chloride (Sodium Chloride Flush 0.9% 10 Ml Syringe) 10 ml IVP 0100,0900,1700 [facility] Last Admin: 09/19/22 01:09 Dose: Not Given Sodium Chloride (Sodium Chloride Flush 0.9% 10 Ml Syringe) 10 ml IVP PRN PRN PRN Reason: NEEDED PER PROVIDER ORDERS Last Admin: 09/16/22 08:55 Dose: 10 ml Sodium Chloride (Sodium Chloride Flush 0.9% 10 Ml Syringe) 20 ml IVP PRN PRN PRN Reason: After Blood Draw Last Admin: 09/16/22 08:50 Dose: 20 ml Throat Lozenges (Benzocaine/Menthol Lozenge) 1 lozenge MM Q2HR PRN PRN Reason: Throat pain Last Admin: 09/10/22 11:18 Dose: 1 lozenge No Known Home Medications 09/08/22 Allergies/Adverse Reactions: Allergies Allergy/AdvReac Type Severity Reaction Status Date / Time No Known Drug Allergies Allergy Verified 09/08/22 10:27 Anes History & Medical History - Anesthetic History Family history of Anesthesia Complications: Denies Family history of Malignant Hyperthermia: Denies - Medical History Cardiovascular: reports: None Pulmonary: reports: None Gastrointestinal: reports: Diverticulitis Urinary: reports: None Neuro: reports: None Musculoskeletal: reports: None Endocrine/Autoimmune: reports: None Blood Disorders: reports: None Skin: reports: None Smoking Status: Current every day smoker - Surgical History Eyes Ears Nose Throat (EENT): reports: Tonsil/Adenoidectomy Exam General: Alert, Oriented x3, Cooperative Dental: Poor dentition (missing front) Mouth Openin Fingerbreadth Neck Mobility: Normal Mallampati classification: II Thyromental Distance: 4-6 cm Respiratory: Lungs clear, Normal breath sounds Cardiovascular: Regular rate Plan Anesthesia Type: MAC, Total IV Consent for Procedure(s) Verified and Reviewed: Yes Code Status: Attempt Resuscitation ASA classification: 2-Mild systemic disease Is this case an emergency?: No
[2022-09-19] MEDS ORDERED: MIDAZOLAM 2 MG/2 ML VIAL ONE (08:26)
[2022-09-19] MEDS ORDERED: KETAMINE 500 MG/10 ML VIAL ONE (08:27)
[2022-09-19] MEDS ORDERED: SODIUM CHLORIDE 0.9% 10 ML VIAL IVP ONE (08:27)
[2022-09-19] MEDS ORDERED: LIDOCAINE-PF 2% 10 ML AMP SUBQ ONE (08:28)
[2022-09-19] MEDS ORDERED: fentaNYL 100 MCG/2 ML VIAL ONE (08:47)
--- NOTE | 2022-09-19 08:55 | OPERATIVE REPORT ---
Operative Report - General Admit Date: 09/08/22 Procedure Date: 09/19/22 Planned Procedure: delayed primary closure of incision Pre-Op Diagnosis: h/o perforated colon, s/p ex lap Procedure Performed: delayed primary closure of incision Post Op Diagnosis: h/o perforated colon, s/p ex lap - Procedure Note Primary Surgeon: Dr. Edith Dubon Anesthesia Technique: MAC Indications: This is a 41-year-old male with a history of a perforated colon, status post ex lap with a subcutaneous wound VAC. His skin was left open at the time of his incision due to the risk for infection. The patient has a very poor tolerance for pain. His wound is healing well and appropriate for delayed primary closure. I discussed the risks, benefits, and alternatives of delayed primary wound closure and recommended propofol for sedation for this procedure. The patient voiced understanding, his questions were answered, and he wished to proceed. Consent was signed by the patient prior to the procedure. Findings: 1.Healthy wound base Complications: None - Other Other Information/Narrative: The patient was taken to the operative suite. Preoperative antibiotics were not indicated for this procedure. Anesthesia was induced to the appropriate level of consciousness. Patient's wound VAC and ostomy appliance were removed. The ostomy appliance was removed because it was leaking. The ostomy was excluded from the wound. The wound base contained beefy red granulation tissue and no signs of infection. There was no significant erythema. The skin edges were reapproximated with skin aneudy leaving for mireille. Telfa mireille were placed within the wound between the aneudy a sterile wound dressing was placed. A new ostomy appliance was placed. The patient tolerated the procedure well without complications. He was transferred back to his room without any issues.
--- NOTE | 2022-09-19 09:15 | ANESTHESIA POST OP EVALUATION ---
Anesthesia Post Eval - Post Anesthesia Eval Vitals: Last Vital Signs Temp 36.9 C 09/19/22 07:19 Pulse 101 H 09/19/22 07:19 Resp 16 09/19/22 07:19 BP 138/88 H 09/19/22 07:19 Pulse Ox 98 09/19/22 07:19 O2 Flow Rate 2 09/10/22 16:31 CV Function Including HR & BP: Stable Pain Control: Satisfactory Nausea & Vomiting: Negative Mental Status: Baseline Respiratory Status: Airway Patent Hydration Status: Satisfactory Anesthesia Complications: None
[2022-09-19] MEDS: amLODIPine 5 MG TABLET PO SCH (09:20)
[2022-09-19] MEDS: SACCHAROMYCES BOULARDII 250 MG CAPSULE PO SCH ×2 (09:20→17:15)
[2022-09-19] MEDS: FAMOTIDINE 20 MG TABLET PO SCH ×2 (09:20→20:31)
[2022-09-19] MEDS: MULTIVITAMIN W/MINERALS TABLET PO SCH (09:20)
[2022-09-19] MEDS: cefTRIAXone 2 GM in SODIUM CHLORIDE 0.9% MINIBAG 100 ML IV SCH (09:26)
[2022-09-19] MEDS: NICOTINE 14 MG PATCH TOP SCH (09:27)
--- NOTE | 2022-09-19 14:06 | CT Report ---
PROCEDURE: PERITONEAL ABSC DRAIN Sedation analgesia for approximately 60 minutes. INDICATIONS: RLQ abscess TECHNIQUE: The indications, alternatives, benefits, risks, and possible complications of the procedure were comm unicated to the patient. Informed written consent from the patient was obtained and placed in the art. Continuous EKG and hemodynamic monitoring was started by trained personnel. For radiation dose reduction, the following was used: automated exposure control, adjustment of mA and/or kV according to patient size. The patient was brought to the CT suite and vice admiral spiral CT imaging was performed with localization g rid. The appropriate site for percutaneous access to the drainage target was marked, was prepped and draped sterilely, and was infused with local anaesthesia. Under CT guidance, a Chiba needle was adv anced to the drain target. Despite multiple attempts at needle positioning, no material was able to b e aspirated and a wire/drain was not placed. The procedure was then termianted. COMPARISON: CT abdomen pelvis 09/18/2022, 09/14/2022 FINDINGS: Positive oral contrast opacifies loops of small bowel. A small fluid collection is present in the rig ht lower quadrant of the abdomen as seen on recent CTs. Numerous attempts needle placement were perfo rmed and despite the needle appearing adjacent to or within the collection, no material was able to b e aspirated and a wire/drain was not placed. Gas was observed within the collection during the proced ure, likely related to attempts at aspiration. IMPRESSION: Unsuccessful CT guided percutaneous drain placement. Follow-up imaging and/or reattempt at drain plac ement can be obtained as clinically indicated. Result of unsuccessful drain placement or aspiration discussed with Dr. Pierce by Dr. Landa at approx imately 1310 hours on 09/19/2022. Reviewed by: Rafat Landa MD on 09/19/2022 2:05 PM PST Approved by: Rafat Landa MD on 09/19/2022 2:05 PM PST Station ID: [id number]
[2022-09-19] MEDS: HEPARIN 5,000 UNIT/ML VIAL SUBQ SCH (20:31)
[2022-09-20] MEDS: HYDROmorphone 2 MG/ML VIAL IVP PRN (02:05)
[2022-09-20] MEDS: SODIUM CHLORIDE FLUSH 0.9% 10 ML SYRINGE IVP PRN ×2 (02:07→09:36)
[2022-09-20] MEDS: ACETAMINOPHEN 325 MG TABLET PO SCH ×6 (03:42→23:56)
[2022-09-20] MEDS: LORazepam 0.5 MG TABLET PO PRN ×2 (03:42→17:16)
[2022-09-20] MEDS: metroNIDAZOLE 500 MG/100 ML 500 MG/100 ML BAG IV SCH ×3 (06:33→22:03)
[2022-09-20] MEDS: PANTOPRAZOLE 40 MG VIAL IVP SCH (06:33)
[2022-09-20] MEDS: oxyCODONE 5 MG TABLET PO PRN (06:34)
[2022-09-20] MEDS: GABAPENTIN 300 MG CAPSULE PO SCH ×3 (06:34→22:03)
[2022-09-20] MEDS: IBUPROFEN 400 MG TABLET PO SCH ×3 (06:34→22:03)
[2022-09-20] MEDS: SODIUM CHLORIDE FLUSH 0.9% 10 ML SYRINGE IVP SCH ×4 (06:35→23:55)
[2022-09-20] MEDS ORDERED: HYDROmorphone 1 MG/ML CARPUJECT IVP PRN (07:29)
--- NOTE | 2022-09-20 07:57 | PROVIDER PROGRESS NOTE ---
Progress Note General Surgery Progress Note Hospital Day # 13: Fecal peritonitis due to perforated sigmoid colon POD # 12, Exploratory laparotomy, sigmoid colectomy, colostomy, washout, drainage ASSESSMENT: 1) S/P colectomy, colostomy for perforated sigmoid colon and feculent peritonitis. Repeat CT 09/18 shows slight increase in RLQ fluid collection since 09/14 study, IR unable to place drain 09/19. Abx changed to rocephin and flagyl with good result. 2) Leukocytosis - AM value pending. CXR does not show any infiltrate. UA does not demonstrate UTI, BCx NGTD (2 days). CVL removed, tip cultured yesterday. Bandemia has resolved. 3) Midline wound - Delayed primary closure of wound 09/19, will pull mireille back today, likely remove tomorrow. Patient will not need wound vac at time of discharge. 4) Colostomy - No issues, pink working well. 5) Hypertension - He was not on antihypertensive medications pre-op. Now on amlodipine 5mg daily. 6) Pain tolerance is low and we are making slow progress towards satisfactory oral management 7) Hypokalemia - resolved PLAN: 1) Continue multi-modal pain control; increased PO ibuprofen and oxycodone doses working well, encouraged patient to use PO meds. Plan to d/c IV dilaudid this AM. 2) Will send Rx today in anticipation of likely discharge tomorrow 3) Amlodipine 5 mg PO Q day; VS Q 4 hr to monitor response 4) Continue to encourage ambulation. Encouraged IS and/or deep breathing exercises hourly. 5) Continue IV antibiotics today, f/u lab. If wbc improving, likely discharge on cefdenir and flagyl tomorrow. 6) Discharge when pain controlled with PO meds, possibly tomorrow (09/21) <><><><><> PERTINENT INTERVAL ISSUES: None S: Patient did well with vac removal and attempted drain placement yesterday. Still using IV dilaudid but willing to try to go without to work toward discharge. + tolerating diet. Voiding well. No f/c. OBJECTIVE: I/O (24 hrs): UOP 2325mL VS: T 36.2 C, P 96; BP 143/79; RR 18; O2 sat 97% RA EXAMINATION: MENTAL STATUS: AAO; Comfortable and resting EYES: Pupils equal, round and reactive to light, sclera anicteric, EARS, NOSE, MOUTH, THROAT: Normal hearing, Oral mucous membranes moist and without lesions; NECK: No crepitus, lymphadenopathy, or thyromegaly LUNGS: Clear to auscultation bilaterally. No use of accessory muscles to breathe. Can pull 2500mL on IS. CARDIOVASCULAR: RRR, without murmurs ABD: Soft, mild incisional ttp on exam. Incision with intact with aneudy in place; sersang drainage on dressing, mireille in place; LLQ ostomy functional and healthy, appliance leaking. EXTREMITIES: No clubbing, cyanosis, edema SKIN: Anicteric; No rashes, lesions, ulcerations LABS: WBC pending today LINES: PIV (RIJ removed, visibly soiled per RN) CULTURES: Repeat Cx NGTD at 2 days, continue to follow Blood (presentation) - No Growth Peritoneal - E. Coli - sensitive to Zosyn, Ceftriaxone, Cipro IMAGING: No new imaging ANTIMICROBIALS: Day 13/14 - Now on day 3 of rocephin/flagyl (Cipro/Flagyl for 4 days; Ceftriaxaone/Flagyl for 1 day; s/p 5 days IV zosyn) Plan to continue until wbc wnl or 5 days after discharge. PAIN CONTROL: Dilaudid IV prn, Oxycodone PO prn, Ibuprofen, Acetaminophen, Gabapentin, LIZZIE Block VTEP: Chemical: Heparin, 5,000 units SQ Q 12 hrs (restarted after procedures yesterday) Mechanical: SCDs Edith Dubon MD General Surgery Service
[2022-09-20 08:04] LABS: HCT - HEMATOCRIT 34.6 % (42.0-52.0); MEAN CORPUSCULAR HEMOGLOBIN 30.7 pg (27.0-31.0); MEAN CORPUSCULAR HGB CONC 31.8 g/dL (32.0-36.0); MEAN CORPUSCULAR VOLUME 96.6 fL (80.0-94.0); MEAN PLATELET VOLUME 8.4 fL (7.4-11.4); RED BLOOD COUNT 3.58 10^6/uL (4.70-6.10); RED CELL DISTRIBUTION WIDTH 14.7 % (12.0-15.0)
[2022-09-20] MEDS: MULTIVITAMIN W/MINERALS TABLET PO SCH (09:06)
[2022-09-20] MEDS: SACCHAROMYCES BOULARDII 250 MG CAPSULE PO SCH ×2 (09:06→17:16)
[2022-09-20] MEDS: amLODIPine 5 MG TABLET PO SCH (09:06)
[2022-09-20] MEDS: FAMOTIDINE 20 MG TABLET PO SCH ×2 (09:06→20:21)
[2022-09-20] MEDS: NICOTINE 14 MG PATCH TOP SCH (09:07)
[2022-09-20] MEDS: cefTRIAXone 2 GM in SODIUM CHLORIDE 0.9% MINIBAG 100 ML IV SCH (09:09)
[2022-09-20] MEDS: HYDROmorphone 0.5 MG/0.5 ML SYRINGE IVP PRN ×3 (09:36→22:03)
[2022-09-20] MEDS: HEPARIN 5,000 UNIT/ML VIAL SUBQ SCH ×2 (09:40→21:23)
[2022-09-20] MEDS: oxyCODONE 30 MG TABLET PO PRN ×3 (12:17→21:23)
[2022-09-21] MEDS: oxyCODONE 30 MG TABLET PO PRN ×3 (04:16→13:16)
[2022-09-21] MEDS: ACETAMINOPHEN 325 MG TABLET PO SCH ×3 (04:16→11:58)
[2022-09-21] MEDS: HYDROmorphone 0.5 MG/0.5 ML SYRINGE IVP PRN (05:03)
[2022-09-21 05:33] LABS: BASOPHILS # (AUTO) 0.1 10^3/uL (0.0-0.1); BASOPHILS % (AUTO) 0.5 %; EOSINOPHILS # (AUTO) 0.2 10^3/uL (0.0-0.7); EOSINOPHILS % (AUTO) 1.4 %; HCT - HEMATOCRIT 31.2 % (42.0-52.0); HGB - HEMOGLOBIN 9.7 g/dL (14.0-18.0); LYMPHOCYTES # (AUTO) 3.1 10^3/uL (1.5-3.5); LYMPHOCYTES % (AUTO) 20.2 %; MEAN CORPUSCULAR HEMOGLOBIN 30.2 pg (27.0-31.0); MEAN CORPUSCULAR HGB CONC 31.1 g/dL (32.0-36.0); MEAN CORPUSCULAR VOLUME 97.2 fL (80.0-94.0); MEAN PLATELET VOLUME 8.2 fL (7.4-11.4); MONOCYTES # (AUTO) 1.1 10^3/uL (0.0-1.0); MONOCYTES % (AUTO) 7.1 %; NEUTROPHILS # (AUTO) 10.6 10^3/uL (1.5-6.6); NEUTROPHILS % (AUTO) 69.4 %; RED BLOOD COUNT 3.21 10^6/uL (4.70-6.10); WHITE BLOOD COUNT 15.2 x10^3/uL (4.8-10.8)
[2022-09-21 05:55] LABS: PLATELET ESTIMATE, MANUAL INCREASED (>450,000) (NORMAL); PLATELET MORPHOLOGY 1+ GIANT PLATELETS (NORMAL); PLT - PLATELET COUNT 1327 10^3/uL (130-450); RBC MORPHOLOGY (MULTIPLE) NORMAL APPEARANCE (NORMAL); SLIDE REVIEW? Indicated; WBC MORPHOLOGY (MULTIPLE) NORMAL APPEARANCE (NORMAL)
[2022-09-21] MEDS: metroNIDAZOLE 500 MG/100 ML 500 MG/100 ML BAG IV SCH (05:58)
[2022-09-21] MEDS: IBUPROFEN 400 MG TABLET PO SCH ×2 (06:00→13:16)
[2022-09-21] MEDS: GABAPENTIN 300 MG CAPSULE PO SCH ×2 (06:01→13:17)
[2022-09-21] MEDS: SACCHAROMYCES BOULARDII 250 MG CAPSULE PO SCH (08:51)
[2022-09-21] MEDS: amLODIPine 5 MG TABLET PO SCH (08:51)
[2022-09-21] MEDS: FAMOTIDINE 20 MG TABLET PO SCH (08:51)
[2022-09-21] MEDS: cefTRIAXone 2 GM in SODIUM CHLORIDE 0.9% MINIBAG 100 ML IV SCH (08:51)
[2022-09-21] MEDS: SODIUM CHLORIDE FLUSH 0.9% 10 ML SYRINGE IVP SCH (08:52)
[2022-09-21] MEDS: MULTIVITAMIN W/MINERALS TABLET PO SCH (08:52)
[2022-09-21] MEDS: NICOTINE 14 MG PATCH TOP SCH (08:52)
[2022-09-21] MEDS: HEPARIN 5,000 UNIT/ML VIAL SUBQ SCH (08:53)
--- NOTE | 2022-09-21 10:45 | Discharge Plan ---
Discharge Plan Problem Reviewed?: Yes Disposition: Home, Self Care Prescriptions: Cefdinir 300 mg PO BID #10 cap metroNIDAZOLE [Flagyl] 500 mg PO BID 5 Days #10 tablet polyethylene glycoL 3350 [Miralax] 17 gm PO DAILY #238 gm amLODIPine [Norvasc] 5 mg PO DAILY 30 Days #30 tablet oxyCODONE [Roxicodone] 10 - 15 mg PO Q4H PRN #31 tablet PRN Reason: Pain Diet: Regular Activity Restrictions: No Restrictions Shower Restrictions: No Driving Restrictions: Yes (not on pain meds) Health Concerns: history perforated colon Plan of Treatment: ok to shower. change the dressing daily and as needed Assessment: doing well at time of discharge. afebrile, wbc improved, tolerating diet, normal abdominal exam Additional Instructions or Follow Up instructions: call the surgery office for incision area redness, fever over 101 call to make a follow up appointment in the surgery office [phone] No Smoking: If you smoke, Please STOP! Call for help. Follow-up with: Tobias Cabezas MD [Provider Admit Priv/Credential] -
--- NOTE | 2022-09-21 10:51 | PROVIDER PROGRESS NOTE ---
Subjective - Prog Note Date Prog Note Date: 09/21/22 - Subjective Pt reports feeling: Improved Objective - Vital Signs/Intake & Output Reviewed Vital Signs: Yes Vital Signs: Vital Signs x48h Temp Pulse Resp BP Pulse Ox 09/21/22 07:54 36.7 C 93 16 113/65 96 Intake & Output: Intake & Output 09/18/22 09/19/22 09/20/22 09/21/22 23:59 23:59 23:59 23:59 Intake Total 3612 1020 3605 1310 Output Total 850 2325 2200 350 Balance 2762 -1305 1405 960 - Objective General Appearance: positive: No acute distress, Alert Eyes Bilateral: positive: PERRL, EOMI ENT: positive: No signs of dehydration Neck: positive: No JVD, Trachea midline Respiratory: positive: No respiratory distress Abdomen: positive: Non-tender, No distention, Other (incision with scant serous drainage. no erythema) Neurologic/Psychiatric: positive: Oriented x3 - Lab Results Fish Bones: 09/21/22 05:21 09/19/22 06:45 Other Labs: Lab Results x24hrs 09/21/22 Range/Units 05:21 WBC 15.2 H (4.8-10.8) x10^3/uL RBC 3.21 L (4.70-6.10) 10^6/uL Hgb 9.7 L (14.0-18.0) g/dL Hct 31.2 L (42.0-52.0) % MCV 97.2 H (80.0-94.0) fL MCH 30.2 (27.0-31.0) pg MCHC 31.1 L (32.0-36.0) g/dL RDW 15.0 (12.0-15.0) % Plt Count 1327 H* (130-450) 10^3/uL MPV 8.2 (7.4-11.4) fL Neut # (Auto) 10.6 H (1.5-6.6) 10^3/uL Lymph # (Auto) 3.1 (1.5-3.5) 10^3/uL [place] # (Auto) 1.1 H (0.0-1.0) 10^3/uL Eos # (Auto) 0.2 (0.0-0.7) 10^3/uL Baso # (Auto) 0.1 (0.0-0.1) 10^3/uL Absolute Nucleated RBC 0.00 x10^3/uL Nucleated RBC % 0.0 /100WBC Manual Slide Review Indicated WBC Morphology NORMAL APPEARANCE (NORMAL) Platelet Estimate INCREASED (>450,000) (NORMAL) Platelet Morphology 1+ GIANT PLATELETS (NORMAL) RBC Morph Micro Appear NORMAL APPEARANCE (NORMAL) Sepsis Event Note (H) - Evaluation Current Stage of Sepsis: Sepsis Possible source of Sepsis: positive: GI tract/intra-abdominal - Sepsis Criteria Sepsis Criteria: Recorded Heart Rate greater than 90 bpm, Recorded Respiratory Rate greater than 20, WBC count greater than 12,000 or less than 4000 Assessment/Plan - Problem List (1) Perforated abdominal viscus Impression: doing well afebrile, wbc down, tolerating diet d/c home
[2022-09-21 14:31] VITALS: BP 137/82
== END 2022-09-21 14:34 | disposition home or self-care (01) | DRG 853 ==
LOC: ED 10:22 → SDS 16:00 → ICU 19:27 → SDS 21:25 → MS2 09-11 11:33 → ICU 09-21 14:29 → MS2 09-21 14:32
PROVIDERS: ADMIT Surgery; ATTEND Surgery
PROC: 0D1N0Z4 Bypass Sigmoid Colon to Cutaneous, Open Approach (ICD-10-PCS; 2022-09-08)
PROC: 02H633Z Insertion of Infusion Device into Right Atrium, Percutaneous Approach (ICD-10-PCS; 2022-09-08)
PROC: 0DBN0ZZ Excision of Sigmoid Colon, Open Approach (ICD-10-PCS; principal; 2022-09-08 17:30)
PROC: 0WQFXZ2 Repair Abdominal Wall, Stoma, External Approach (ICD-10-PCS; 2022-09-19)
PROC: 0WQFXZZ Repair Abdominal Wall, External Approach (ICD-10-PCS; 2022-09-19)
DX: A41.51 Sepsis due to Escherichia coli [E. coli] (principal); K65.8 Other peritonitis; K57.20 Diverticulitis of large intestine with perforation and abscess without bleeding; K56.7 Ileus, unspecified; K94.03 Colostomy malfunction; I10 Essential (primary) hypertension; B96.20 Unspecified Escherichia coli [E. coli] as the cause of diseases classified elsewhere; D72.829 Elevated white blood cell count, unspecified; E86.9 Volume depletion, unspecified; E86.0 Dehydration; E87.6 Hypokalemia; R63.0 Anorexia; Z68.23 Body mass index [BMI] 23.0-23.9, adult; Z72.0 Tobacco use; Z76.5 Malingerer [conscious simulation]
CPT/HCPCS: 36415; 49406; 71046; 74177; 80048; 80053; 81001; 82330; 83605; 83690; 83735; 84100; 84132; 84484; 85025; 85027; 85610; 87040; 87070; 87076; 87150; 87186; 93005; 99285; 99291; A9270; J0131; J1170; J1200; J2060; J7120; Q9963; Q9967; 81003; 87086